=== PATIENT | female | born 1945 | race Caucasian/White ===

== ENCOUNTER 2016-08-26 05:47 | Emergency (ER) | payer MEDICARE ==
[2016-08-26 05:56] VITALS: TEMP 97.4
--- NOTE | 2016-08-26 06:06 | ED ---
General Adult HPI - General Chief complaint: Urogenital Stated complaint: Hematuria Time Seen by Provider: 08/26/16 06:01 Source: patient, RN notes reviewed Mode of arrival: wheelchair Limitations: no limitations - History of Present Illness Initial comments: Patient is a pleasant 71-year-old female presenting to the emergency department complaining of hematuria. Onset was yesterday. Symptoms have worsened since that time. No history of similar symptoms previously. No fevers. No abdominal or back pain. No nausea vomiting. Patient denies vaginal bleeding or rectal bleeding. - Related Data Home Medications Medication Instructions Recorded Confirmed Lisinopril-Hctz 20-12.5 mg 20 mg PO QAM 10/21/14 08/26/16 [Zestoretic 20-12.5] Lovastatin [Lovastatin] 20 mg PO HS 10/21/14 08/26/16 clonazePAM [Clonazepam] 0.5 mg PO DAILY 10/21/14 08/26/16 Ergocalciferol [Vitamin D2] 50,000 unit PO TU 08/09/15 08/26/16 Sevelamer [Renvela] 800 mg PO AC-BID 08/09/15 08/26/16 Canagliflozin [Invokana] 100 mg PO DAILY 06/22/16 08/26/16 Ferrous Sulfate [Iron (65 MG 325 mg PO DAILY 06/22/16 08/26/16 Elemental)] Folic Acid 1 mg PO DAILY 06/22/16 08/26/16 HYDROcodone/APAP 5-325MG [[place] 1 tab PO Q8H PRN 06/22/16 08/26/16 5-325] Lisinopril-Hctz 20-12.5 mg 0.5 tab PO HS 06/22/16 08/26/16 [Zestoretic 20-12.5] Canagliflozin [Invokana] 100 mg PO DAILY 08/26/16 08/26/16 Previous Rx's Medication Instructions Recorded predniSONE 20 mg PO BID #10 tab 06/22/16 Sulfamethox-Tmp 800-160Mg [Bactrim 1 each PO Q12HR #18 tab 08/26/16 DS 800-160 mg] Allergies Allergy/AdvReac Type Severity Reaction Status Date / Time glimepiride Allergy Mild Unknown Verified 06/22/16 17:29 ibuprofen Allergy Unknown Verified 06/22/16 17:29 metformin Allergy Unknown Verified 06/22/16 17:29 Review of Systems ROS Statement: Those systems with pertinent positive or pertinent negative responses have been documented in the HPI. ROS Other: All systems not noted in ROS Statement are negative. Constitutional: Denies: fever, chills Eyes: Denies: eye pain ENT: Denies: ear pain Respiratory: Denies: cough Cardiovascular: Denies: chest pain Endocrine: Denies: fatigue Gastrointestinal: Denies: abdominal pain, nausea, vomiting Genitourinary: Reports: hematuria. Denies: urgency, dysuria, frequency, discharge Musculoskeletal: Denies: back pain Skin: Denies: rash Neurological: Denies: weakness Past Medical History Past Medical History: Diabetes Mellitus, Hyperlipidemia, Hypertension Additional Past Medical History / Comment(s): kidney disease History of Any Multi-Drug Resistant Organisms: None Reported Past Surgical History: Cholecystectomy Additional Past Surgical History / Comment(s): Beatris Flaherty Past Psychological History: No Psychological Hx Reported Smoking Status: Former smoker Past Alcohol Use History: None Reported Past Drug Use History: None Reported General Exam Limitations: no limitations General appearance: alert, in no apparent distress Head exam: Present: atraumatic Eye exam: Present: normal appearance, PERRL ENT exam: Present: normal oropharynx Neck exam: Present: normal inspection Respiratory exam: Present: normal lung sounds bilaterally Cardiovascular Exam: Present: regular rate, normal rhythm GI/Abdominal exam: Present: soft. Absent: distended, tenderness, guarding Extremities exam: Present: normal inspection Back exam: Present: normal inspection. Absent: tenderness, CVA tenderness (R), CVA tenderness (L) Neurological exam: Present: alert Psychiatric exam: Present: normal affect, normal mood Skin exam: Absent: rash Course Vital Signs 08/26/16 05:51 Temperature 97.4 F L Pulse Rate 73 Respiratory 18 Rate Blood Pressure 143/91 O2 Sat by Pulse 94 L Oximetry Medical Decision Making - Medical Decision Making Patient resting comfortably in bed. Patient updated on results and need for follow-up, including with her diabetes control with primary care physician. - Lab Data Lab Results 08/26/16 Range/Units 06:09 Urine Color Red Urine Appearance Turbid H (Clear) Urine pH 5.0 (5.0-8.0) Ur Specific [place] 1.015 (1.001-1.035) Urine Protein 1+ H (Negative) Urine Glucose (UA) 4+ H (Negative) Urine Ketones Negative (Negative) Urine Blood Large H (Negative) Urine Nitrate Negative (Negative) Urine Bilirubin Negative (Negative) Urine Urobilinogen <2.0 (<2.0) mg/dL Ur Leukocyte Esterase Large H (Negative) Urine RBC >182 H (0-5) /hpf Urine WBC >182 H (0-5) /hpf Urine WBC Clumps Many H (None) /hpf Ur Squamous Epith Cells 16 H (0-4) /hpf Urine Bacteria Few H (None) /hpf Disposition Clinical Impression: Urinary tract infection Disposition: HOME SELF-CARE Condition: Stable Instructions: Urinary Tract Infection in Women (ED) Additional Instructions: Please follow-up with your doctor in the next couple of days for recheck. Please have your doctor check urine culture results done today. Please also have your doctor evaluate her diabetes control regarding glucose in the urine. Return for fevers, pain, vomiting, increased bleeding, worsening symptoms or other concerns. Prescriptions: Sulfamethox-Tmp 800-160Mg [Bactrim DS 800-160 mg] 1 each PO Q12HR #18 tab Referrals: Alec Flores MD [Primary Care Provider] - 1-2 days
[2016-08-26 06:29] LABS: Appearance,Urine Turbid (Clear); Bacteria,Urine Few /hpf; Bilirubin,Urine Negative (Negative); Glucose,Urine (UA) 4+ (Negative); Ketones,Urine Negative (Negative); Leukocyte Esterase,Urine Large (Negative); Nitrite,Urine Negative (Negative); Particle Count 14675; Protein,Urine 1+ (Negative); RBC,Urine >182 /hpf (0-5); Specific Gravity,Urine 1.015 (1.001-1.035); Squamous Epithelial Cell,Urine 16 /hpf (0-4); UA Billing (MACRO vs. MICRO) MICRO; Urobilinogen,Urine <2.0 mg/dL (<2.0); WBC,Urine >182 /hpf (0-5)
[2016-08-26] MEDS ORDERED: SULFAMETH-TMP DS STARTER PACK 2 TAB BTL PO STA (06:35)
[2016-08-26 06:52] VITALS: BP 158/88; PULSE 74; RESP 16
== END 2016-08-26 06:53 | disposition home or self-care (01) ==
LOC: EC 05:47
DX: N39.0 Urinary tract infection, site not specified (principal); B96.20 Unspecified Escherichia coli [E. coli] as the cause of diseases classified elsewhere; R31.9 Hematuria, unspecified; I10 Essential (primary) hypertension; E78.5 Hyperlipidemia, unspecified; E11.9 Type 2 diabetes mellitus without complications; N28.9 Disorder of kidney and ureter, unspecified; Z79.899 Other long term (current) drug therapy; Z88.8 Allergy status to other drugs, medicaments and biological substances; Z87.891 Personal history of nicotine dependence; Z79.84 Long term (current) use of oral hypoglycemic drugs
CPT/HCPCS: 81001; 87077; 87086; 87186; 99283

== ENCOUNTER 2016-09-02 20:18 | Inpatient (IN) | payer MEDICARE ==
[2016-09-02 20:33] LABS: Glucose,Whole Blood 192 mg/dL (75-99)
[2016-09-02] MEDS ORDERED: SODIUM CHLORIDE 0.9% 1,000 ML IV STA ×3 (20:33→22:30)
--- NOTE | 2016-09-02 20:49 | ED ---
General Adult HPI - General Source: EMS Mode of arrival: EMS Limitations: no limitations <Ceferino Coronado - Last Filed: 09/02/16 20:50> <Ceferino Campoverde - Last Filed: 09/03/16 00:10> - General Chief complaint: Weakness Stated complaint: fall,weakness Time Seen by Provider: 09/02/16 20:18 - History of Present Illness Initial comments: This is a 71-year-old female who presents emergency Department complaining of feeling weak all day. Patient states she was nauseous all day as well but she did not vomit. Patient states tonight she was getting weaker and weaker and she tried to go up the stairs when she fell to her side and she strained her neck. Patient states she has not had any chest pain palpitations or difficulty breathing. Patient denies any abdominal pain. Patient denies any recent diarrhea. Patient states she has had no headache no numbness or weakness. Patient denies hitting her head or having any syncopal episode. Patient states currently the only pain she is having in the back of her neck. Patient denies any recent fever or chills. Patient denies any recent cough. Patient states she normally has high blood pressure and she takes her medications as prescribed. (Ceferino Coronado) - Related Data Home Medications Medication Instructions Recorded Confirmed Lisinopril-Hctz 20-12.5 mg 1 tab PO QAM 10/21/14 09/02/16 [Zestoretic 20-12.5] Lovastatin [Lovastatin] 20 mg PO HS 10/21/14 09/02/16 clonazePAM [Clonazepam] 0.5 mg PO DAILY 10/21/14 09/02/16 Ergocalciferol [Vitamin D2] 50,000 unit PO TU 08/09/15 09/02/16 Sevelamer [Renvela] 800 mg PO AC-BID 08/09/15 09/02/16 Ferrous Sulfate [Iron (65 MG 325 mg PO DAILY 06/22/16 09/02/16 Elemental)] Folic Acid 1 mg PO DAILY 06/22/16 09/02/16 Lisinopril-Hctz 20-12.5 mg 0.5 tab PO HS 06/22/16 09/02/16 [Zestoretic 20-12.5] Canagliflozin [Invokana] 100 mg PO DAILY 08/26/16 09/02/16 HYDROcodone/APAP 7.5-325MG [[place] 1 tab PO Q8H PRN 09/02/16 09/02/16 7.5-325] Sulfamethox-Tmp 800-160Mg [Bactrim 1 tab PO Q12HR 09/02/16 09/02/16 DS 800-160 mg] Allergies Allergy/AdvReac Type Severity Reaction Status Date / Time glimepiride Allergy Mild Unknown Verified 09/02/16 20:28 ibuprofen Allergy Unknown Verified 09/02/16 20:28 metformin Allergy Unknown Verified 09/02/16 20:28 Review of Systems ROS Other: All systems not noted in ROS Statement are negative. <Ceferino Coronado - Last Filed: 09/02/16 20:50> ROS Other: All systems not noted in ROS Statement are negative. <Ceferino Campoverde - Last Filed: 09/03/16 00:10> ROS Statement: Those systems with pertinent positive or pertinent negative responses have been documented in the HPI. Past Medical History Past Medical History: Diabetes Mellitus, Hyperlipidemia, Hypertension Additional Past Medical History / Comment(s): kidney disease History of Any Multi-Drug Resistant Organisms: None Reported Past Surgical History: Cholecystectomy Additional Past Surgical History / Comment(s): D & C Past Psychological History: Anxiety, Depression Smoking Status: Former smoker Past Alcohol Use History: None Reported Past Drug Use History: None Reported <Ceferino Coronado - Last Filed: 09/02/16 20:50> General Exam Limitations: no limitations <Ceferino Coronado - Last Filed: 09/02/16 20:50> General appearance: alert, in no apparent distress, anxious Head exam: Present: atraumatic, normocephalic, normal inspection Eye exam: Present: normal appearance, PERRL, EOMI. Absent: scleral icterus, conjunctival injection, periorbital swelling ENT exam: Present: normal exam, mucous membranes moist Neck exam: Present: normal inspection. Absent: tenderness, meningismus, lymphadenopathy Respiratory exam: Present: normal lung sounds bilaterally. Absent: respiratory distress, wheezes, rales, rhonchi, stridor Cardiovascular Exam: Present: regular rate, normal rhythm, normal heart sounds. Absent: systolic murmur, diastolic murmur, rubs, gallop, clicks GI/Abdominal exam: Present: soft, normal bowel sounds. Absent: distended, tenderness, guarding, rebound, rigid Extremities exam: Present: normal inspection, full ROM, normal capillary refill. Absent: tenderness, pedal edema, joint swelling, calf tenderness Back exam: Present: normal inspection Neurological exam: Present: alert, oriented X3, CN II-XII intact Psychiatric exam: Present: normal affect, normal mood Skin exam: Present: warm, dry, intact, normal color. Absent: rash <Ceferino Campoverde - Last Filed: 09/03/16 00:10> - General Exam Comments Initial Comments: GENERAL: Patient is well-developed and well-nourished. Patient is nontoxic and well- hydrated and is in mild distress. ENT: Neck is soft and supple. No significant lymphadenopathy is noted. Oropharynx is clear. Moist mucous membranes. EYES: The sclera were anicteric and conjunctiva were pink and moist. Extraocular movements were intact and pupils were equal round and reactive to light. Eyelids were unremarkable. PULMONARY: Unlabored respirations. Good breath sounds bilaterally. No audible rales rhonchi or wheezing was noted. CARDIOVASCULAR: There is a regular rate and rhythm without any murmurs gallops or rubs. ABDOMEN: Soft and nontender with normal bowel sounds. No palpable organomegaly was noted. There is no palpable pulsatile mass. SKIN: Skin is clear with no lesions or rashes and otherwise unremarkable. NEUROLOGIC: Patient is alert and oriented x3. Cranial nerves II through XII are grossly intact. Motor and sensory are also intact. Normal speech, volume and content. Symmetrical smile. MUSCULOSKELETAL: Normal extremities with adequate strength and full range of motion. No lower extremity swelling or edema. No calf tenderness. LYMPHATICS: No significant lymphadenopathy is noted PSYCHIATRIC: Normal psychiatric evaluation. N (Ceferino Coronado) Course <Ceferino Coronado - Last Filed: 09/02/16 20:50> <Ceferino Campoverde - Last Filed: 09/03/16 00:10> Vital Signs 09/02/16 09/02/16 09/02/16 20:28 20:53 21:10 Temperature 99.1 F Pulse Rate 80 80 68 Respiratory 20 18 18 Rate Blood Pressure 85/46 83/48 92/50 O2 Sat by Pulse 88 L 95 97 Oximetry 09/02/16 09/02/16 09/02/16 21:55 22:10 23:00 Temperature Pulse Rate 98 68 70 Respiratory 18 18 18 Rate Blood Pressure 103/51 107/53 100/51 O2 Sat by Pulse 98 99 98 Oximetry - Reevaluation(s) Reevaluation #1: 09/03/16 00:10 Patient with mild improvement with pain control and fluid resuscitation, no acute distress, alert awake talking (Ceferino Campoverde) Medical Decision Making <Ceferino Coronado - Last Filed: 09/02/16 20:50> - Lab Data Result diagrams: 09/02/16 20:30 09/02/16 20:30 - Radiology Data Radiology results: report reviewed, image reviewed <Ceferino Campoverde - Last Filed: 09/03/16 00:10> - Medical Decision Making EKG shows a normal sinus rhythm at 77 bpm NV interval 162 QRS is 88 QT interval 344 QTC is 389. Patient's EKG shows no ST segment elevation or depression or T wave abnormalities are noted. Dr. Campoverde be taking over the care of this patient at 9 PM (Ceferino Coronado) 71 female year with weakness, severe dehydration, with generalized weakness, low risk for PE, unable to get CTA secondary to kidney function, patient's kidney function is worse than normal, patient will be admitted for IV hydration monitoring of blood pressure and cardiac coronary status. (Ceferino Campoverde) - Lab Data Lab Results 09/02/16 09/02/16 09/02/16 Range/Units 20:30 20:30 20:30 WBC 8.9 (3.8-10.6) k/uL RBC 3.12 L (3.80-5.40) m/uL Hgb 10.8 L (11.4-16.0) gm/dL Hct 32.1 L (34.0-46.0) % MCV 102.9 H (80.0-100.0) fL MCH 34.7 (25.0-35.0) pg MCHC 33.7 (31.0-37.0) g/dL RDW 14.0 (11.5-15.5) % Plt Count 214 (150-450) k/uL Neutrophils % 92 % Lymphocytes % 3 % Monocytes % 3 % Eosinophils % 1 % Basophils % 0 % Neutrophils # 8.1 H (1.3-7.7) k/uL Lymphocytes # 0.3 L (1.0-4.8) k/uL Monocytes # 0.3 (0-1.0) k/uL Eosinophils # 0.1 (0-0.7) k/uL Basophils # 0.0 (0-0.2) k/uL Macrocytosis Slight PT (9.0-12.0) sec INR (<1.1) APTT (22.0-30.0) sec D-Dimer (<0.60) mg/L FEU Sodium 135 L (137-145) mmol/L Potassium 5.3 H (3.5-5.1) mmol/L Chloride 101 (98-107) mmol/L Carbon Dioxide 18 L (22-30) mmol/L Anion Gap 16 mmol/L BUN 29 H (7-17) mg/dL Creatinine 2.50 H (0.52-1.04) mg/dL Est GFR (MDRD) Af Amer 23 (>60 ml/min/1.73 sqM) Est GFR (MDRD) Non-Af 19 (>60 ml/min/1.73 sqM) Glucose 175 H (74-99) mg/dL POC Glucose (mg/dL) (75-99) mg/dL POC Glu Maintenance Carpenter ID Plasma Lactic Acid Alex (0.7-2.0) mmol/L Calcium 8.6 (8.4-10.2) mg/dL Magnesium 1.9 (1.6-2.3) mg/dL Total Bilirubin 0.6 (0.2-1.3) mg/dL AST 20 (14-36) U/L ALT 28 (9-52) U/L Alkaline Phosphatase 70 (38-126) U/L Total Creatine Kinase 49 (30-135) U/L CK-MB (CK-2) 0.4 (0.0-2.4) ng/mL CK-MB (CK-2) Rel Index 0.8 Troponin I <0.012 (0.000-0.034) ng/mL NT-Pro-B Natriuret Pep pg/mL Total Protein 6.4 (6.3-8.2) g/dL Albumin 3.6 (3.5-5.0) g/dL Urine Color Urine Appearance (Clear) Urine pH (5.0-8.0) Ur Specific [place] (1.001-1.035) Urine Protein (Negative) Urine Glucose (UA) (Negative) Urine Ketones (Negative) Urine Blood (Negative) Urine Nitrate (Negative) Urine Bilirubin (Negative) Urine Urobilinogen (<2.0) mg/dL Ur Leukocyte Esterase (Negative) Urine RBC (0-5) /hpf Urine WBC (0-5) /hpf Urine Bacteria (None) /hpf Urine Mucus (None) /hpf Salicylates mg/dL Acetaminophen ug/mL Acetone, Qual (Negative) Influenza Type A RNA (Not Detectd) Influenza Type B (PCR) (Not Detectd) 09/02/16 09/02/16 09/02/16 Range/Units 20:30 20:30 20:30 WBC (3.8-10.6) k/uL RBC (3.80-5.40) m/uL Hgb (11.4-16.0) gm/dL Hct (34.0-46.0) % MCV (80.0-100.0) fL MCH (25.0-35.0) pg MCHC (31.0-37.0) g/dL RDW (11.5-15.5) % Plt Count (150-450) k/uL Neutrophils % % Lymphocytes % % Monocytes % % Eosinophils % % Basophils % % Neutrophils # (1.3-7.7) k/uL Lymphocytes # (1.0-4.8) k/uL Monocytes # (0-1.0) k/uL Eosinophils # (0-0.7) k/uL Basophils # (0-0.2) k/uL Macrocytosis PT 11.0 (9.0-12.0) sec INR 1.1 (<1.1) APTT 23.3 (22.0-30.0) sec D-Dimer (<0.60) mg/L FEU Sodium (137-145) mmol/L Potassium (3.5-5.1) mmol/L Chloride (98-107) mmol/L Carbon Dioxide (22-30) mmol/L Anion Gap mmol/L BUN (7-17) mg/dL Creatinine (0.52-1.04) mg/dL Est GFR (MDRD) Af Amer (>60 ml/min/1.73 sqM) Est GFR (MDRD) Non-Af (>60 ml/min/1.73 sqM) Glucose (74-99) mg/dL POC Glucose (mg/dL) (75-99) mg/dL POC Glu Maintenance Carpenter ID Plasma Lactic Acid Alex 3.3 H* (0.7-2.0) mmol/L Calcium (8.4-10.2) mg/dL Magnesium (1.6-2.3) mg/dL Total Bilirubin (0.2-1.3) mg/dL AST (14-36) U/L ALT (9-52) U/L Alkaline Phosphatase (38-126) U/L Total Creatine Kinase (30-135) U/L CK-MB (CK-2) (0.0-2.4) ng/mL CK-MB (CK-2) Rel Index Troponin I (0.000-0.034) ng/mL NT-Pro-B Natriuret Pep pg/mL Total Protein (6.3-8.2) g/dL Albumin (3.5-5.0) g/dL Urine Color Yellow Urine Appearance Clear (Clear) Urine pH 5.5 (5.0-8.0) Ur Specific [place] 1.011 (1.001-1.035) Urine Protein Trace H (Negative) Urine Glucose (UA) 4+ H (Negative) Urine Ketones Negative (Negative) Urine Blood Small H (Negative) Urine Nitrate Negative (Negative) Urine Bilirubin Negative (Negative) Urine Urobilinogen <2.0 (<2.0) mg/dL Ur Leukocyte Esterase Negative (Negative) Urine RBC 7 H (0-5) /hpf Urine WBC 3 (0-5) /hpf Urine Bacteria Rare H (None) /hpf Urine Mucus Rare H (None) /hpf Salicylates mg/dL Acetaminophen ug/mL Acetone, Qual (Negative) Influenza Type A RNA (Not Detectd) Influenza Type B (PCR) (Not Detectd) 09/02/16 09/02/16 09/02/16 Range/Units 20:30 20:30 20:30 WBC (3.8-10.6) k/uL RBC (3.80-5.40) m/uL Hgb (11.4-16.0) gm/dL Hct (34.0-46.0) % MCV (80.0-100.0) fL MCH (25.0-35.0) pg MCHC (31.0-37.0) g/dL RDW (11.5-15.5) % Plt Count (150-450) k/uL Neutrophils % % Lymphocytes % % Monocytes % % Eosinophils % % Basophils % % Neutrophils # (1.3-7.7) k/uL Lymphocytes # (1.0-4.8) k/uL Monocytes # (0-1.0) k/uL Eosinophils # (0-0.7) k/uL Basophils # (0-0.2) k/uL Macrocytosis PT (9.0-12.0) sec INR (<1.1) APTT (22.0-30.0) sec D-Dimer 1.41 H (<0.60) mg/L FEU Sodium (137-145) mmol/L Potassium (3.5-5.1) mmol/L Chloride (98-107) mmol/L Carbon Dioxide (22-30) mmol/L Anion Gap mmol/L BUN (7-17) mg/dL Creatinine (0.52-1.04) mg/dL Est GFR (MDRD) Af Amer (>60 ml/min/1.73 sqM) Est GFR (MDRD) Non-Af (>60 ml/min/1.73 sqM) Glucose (74-99) mg/dL POC Glucose (mg/dL) (75-99) mg/dL POC Glu Maintenance Carpenter ID Plasma Lactic Acid Alex (0.7-2.0) mmol/L Calcium (8.4-10.2) mg/dL Magnesium (1.6-2.3) mg/dL Total Bilirubin (0.2-1.3) mg/dL AST (14-36) U/L ALT (9-52) U/L Alkaline Phosphatase (38-126) U/L Total Creatine Kinase (30-135) U/L CK-MB (CK-2) (0.0-2.4) ng/mL CK-MB (CK-2) Rel Index Troponin I (0.000-0.034) ng/mL NT-Pro-B Natriuret Pep 463 pg/mL Total Protein (6.3-8.2) g/dL Albumin (3.5-5.0) g/dL Urine Color Urine Appearance (Clear) Urine pH (5.0-8.0) Ur Specific [place] (1.001-1.035) Urine Protein (Negative) Urine Glucose (UA) (Negative) Urine Ketones (Negative) Urine Blood (Negative) Urine Nitrate (Negative) Urine Bilirubin (Negative) Urine Urobilinogen (<2.0) mg/dL Ur Leukocyte Esterase (Negative) Urine RBC (0-5) /hpf Urine WBC (0-5) /hpf Urine Bacteria (None) /hpf Urine Mucus (None) /hpf Salicylates <1.0 mg/dL Acetaminophen <10.0 ug/mL Acetone, Qual Negative (Negative) Influenza Type A RNA (Not Detectd) Influenza Type B (PCR) (Not Detectd) 09/02/16 09/02/16 Range/Units 20:31 23:05 WBC (3.8-10.6) k/uL RBC (3.80-5.40) m/uL Hgb (11.4-16.0) gm/dL Hct (34.0-46.0) % MCV (80.0-100.0) fL MCH (25.0-35.0) pg MCHC (31.0-37.0) g/dL RDW (11.5-15.5) % Plt Count (150-450) k/uL Neutrophils % % Lymphocytes % % Monocytes % % Eosinophils % % Basophils % % Neutrophils # (1.3-7.7) k/uL Lymphocytes # (1.0-4.8) k/uL Monocytes # (0-1.0) k/uL Eosinophils # (0-0.7) k/uL Basophils # (0-0.2) k/uL Macrocytosis PT (9.0-12.0) sec INR (<1.1) APTT (22.0-30.0) sec D-Dimer (<0.60) mg/L FEU Sodium (137-145) mmol/L Potassium (3.5-5.1) mmol/L Chloride (98-107) mmol/L Carbon Dioxide (22-30) mmol/L Anion Gap mmol/L BUN (7-17) mg/dL Creatinine (0.52-1.04) mg/dL Est GFR (MDRD) Af Amer (>60 ml/min/1.73 sqM) Est GFR (MDRD) Non-Af (>60 ml/min/1.73 sqM) Glucose (74-99) mg/dL POC Glucose (mg/dL) 192 H (75-99) mg/dL POC Glu Maintenance Carpenter ID Sara Reaves Plasma Lactic Acid Alex (0.7-2.0) mmol/L Calcium (8.4-10.2) mg/dL Magnesium (1.6-2.3) mg/dL Total Bilirubin (0.2-1.3) mg/dL AST (14-36) U/L ALT (9-52) U/L Alkaline Phosphatase (38-126) U/L Total Creatine Kinase (30-135) U/L CK-MB (CK-2) (0.0-2.4) ng/mL CK-MB (CK-2) Rel Index Troponin I (0.000-0.034) ng/mL NT-Pro-B Natriuret Pep pg/mL Total Protein (6.3-8.2) g/dL Albumin (3.5-5.0) g/dL Urine Color Urine Appearance (Clear) Urine pH (5.0-8.0) Ur Specific [place] (1.001-1.035) Urine Protein (Negative) Urine Glucose (UA) (Negative) Urine Ketones (Negative) Urine Blood (Negative) Urine Nitrate (Negative) Urine Bilirubin (Negative) Urine Urobilinogen (<2.0) mg/dL Ur Leukocyte Esterase (Negative) Urine RBC (0-5) /hpf Urine WBC (0-5) /hpf Urine Bacteria (None) /hpf Urine Mucus (None) /hpf Salicylates mg/dL Acetaminophen ug/mL Acetone, Qual (Negative) Influenza Type A RNA Not Detected (Not Detectd) Influenza Type B (PCR) Not Detected (Not Detectd) Critical Care Time Critical Care Time: Yes Total Critical Care Time: 31 <Ceferino Campoverde - Last Filed: 09/03/16 00:10> Disposition <Ceferino Coronado - Last Filed: 09/02/16 20:50> <Ceferino Campoverde - Last Filed: 09/03/16 00:10> Clinical Impression: Weakness, Dehydration, Acute renal failure Disposition: ADMITTED IP TO THIS [facility] Condition: Serious Referrals: Alec Flores MD [Primary Care Provider] - 1-2 days
[2016-09-02 21:06] LABS: Basophils % (A) 0 %; CH 33.9; CHCM 33.1; Eosinophils # (A) 0.1 k/uL (0-0.7); Eosinophils % (A) 1 %; HCT 32.1 % (34.0-46.0); HDW 2.52; HGB 10.8 gm/dL (11.4-16.0); Luc % (Auto) 1; Lymphocytes # (A) 0.3 k/uL (1.0-4.8); Lymphocytes % (A) 3 %; MCH 34.7 pg (25.0-35.0); MCHC 33.7 g/dL (31.0-37.0); MCV 102.9 fL (80.0-100.0); Macrocytosis Slight; Mean Platelet Volume 6.9; Monocytes # (A) 0.3 k/uL (0-1.0); Monocytes % (A) 3 %; Neutrophils # (A) 8.1 k/uL (1.3-7.7); Neutrophils % (A) 92 %; RBC 3.12 m/uL (3.80-5.40); WBC 8.9 k/uL (3.8-10.6); WBC (Perox) 9.51
[2016-09-02 21:12] LABS: Appearance,Urine Clear (Clear); Bacteria,Urine Rare /hpf; Bilirubin,Urine Negative (Negative); Glucose,Urine (UA) 4+ (Negative); Ketones,Urine Negative (Negative); Leukocyte Esterase,Urine Negative (Negative); Mucus,Urine Rare /hpf; Nitrite,Urine Negative (Negative); PH, Urine 5.5 (5.0-8.0); Particle Count 7781; Protein,Urine Trace (Negative); RBC,Urine 7 /hpf (0-5); Specific Gravity,Urine 1.011 (1.001-1.035); UA Billing (MACRO vs. MICRO) MICRO; Urobilinogen,Urine <2.0 mg/dL (<2.0); WBC,Urine 3 /hpf (0-5)
[2016-09-02 21:17] LABS: Calcium 8.6 mg/dL (8.4-10.2); Magnesium 1.9 mg/dL (1.6-2.3); Potassium 5.3 mmol/L (3.5-5.1); Total Bilirubin 0.6 mg/dL (0.2-1.3); Total Protein 6.4 g/dL (6.3-8.2)
[2016-09-02 21:19] LABS: INR 1.1 (<1.1); Partial Thromboplastin Time 23.3 sec (22.0-30.0)
[2016-09-02 21:24] LABS: Creatine Kinase 49 U/L (30-135)
[2016-09-02 21:37] LABS: Creatine Kinase MB 0.4 ng/mL (0.0-2.4); Troponin I <0.012 ng/mL (0.000-0.034)
--- NOTE | 2016-09-02 21:38 | CT ---
EXAMINATION TYPE: CT cervical spine wo con DATE OF EXAM: 09/02/2016 9:30 PM COMPARISON: NONE HISTORY: Fall and weakness. CT DLP: 1063.00 mGycm Automated exposure control for dose reduction was used. TECHNIQUE: CT scan of the cervical spine is obtained without contrast, axial images are obtained, sa gittal and coronal reformatted images are also reviewed. FINDINGS: Visualized portions of the lungs are clear. There is some shotty cervical adenopathy. Prevertebral soft tissues are otherwise unremarkable. Vertebral body height and alignment are maintained. Atlantoaxial relationships are normal. There is mild degenerative disc disease and hypertrophic spondylosis at C4-5, C5-6 and C6-7. There is uncovertebral joint disease at these levels as well. There is some mild facet arthropathy on the rig ht at C3-4. No fracture is seen. There is a left paracentral spur present at C5-6. There is also significant posterior spurring at C4- 5. And to lesser extent at C5-6. No definite discal protrusion is seen. IMPRESSION: 1. No acute osseous lesion. 2. Moderate degenerative change.
[2016-09-02] MEDS ORDERED: ACETAMINOPHEN IV (For NPO) 1,000 MG in EMPTY BAG 1 BAG IVPB ONE (21:56)
[2016-09-02] MEDS ORDERED: SODIUM CHLORIDE 0.9% 500 ML IV STA (22:30)
--- NOTE | 2016-09-02 22:56 | XR ---
EXAMINATION TYPE: XR chest 2V DATE OF EXAM: 09/02/2016 10:48 PM COMPARISON: 06/22/2016 HISTORY: Weakness TECHNIQUE: Frontal and lateral views of the chest are obtained. FINDINGS: There is no heart failure nor confluent pneumonic infiltrate. There are no hilar masses. H eart size is normal. There are chest leads. There is no sign of pleural effusion. IMPRESSION: No active cardiopulmonary disease. No change.
--- NOTE | 2016-09-02 22:57 | XR ---
EXAMINATION TYPE: XR Hip RT and AP Pelvis DATE OF EXAM: 09/02/2016 10:48 PM COMPARISON: NONE HISTORY: Fall and hip pain TECHNIQUE: A single AP view of the pelvis is obtained. Two views of the right hip are obtained. FINDINGS: The pelvic ring is intact. Proximal right femur and hip joint are intact. There is no sign of a fracture. Sacroiliac joints are normal. There are numerous phleboliths in the pelvis.. IMPRESSION: Negative pelvis and right hip exam. No fracture.
[2016-09-02 23:15] LABS: Acetaminophen <10.0 ug/mL; Salicylate <1.0 mg/dL
[2016-09-03] MEDS ORDERED: ASPIRIN 81 MG CHEW PO STA (00:11)
[2016-09-03] MEDS ORDERED: IPRATROPIUM-ALBUTEROL 3 ML NEB INHALATION STA (00:13)
[2016-09-03] MEDS ORDERED: AMPICILLIN-SULBACTAM 3 GM in SODIUM CHLORIDE 0.9% 100 ML IVPB STA (00:13)
--- NOTE | 2016-09-03 00:19 | NM ---
EXAMINATION TYPE: NM pul vent and perfuse DATE OF EXAM: 09/03/2016 12:06 AM COMPARISON: NONE HISTORY: TECHNIQUE: Utilizing inhalation of 71.3 mCi Tc 99m DTPA aerosol and intravenous injection of 5.14 mC i of Tc 99m MAA, ventilation and perfusion images are acquired post injection in multiple projections . FINDINGS: Ventilation images are within normal limits. The perfusion images are within normal limits. There is no evidence of segmental or subsegmental defect. IMPRESSION: Normal exam. There is a very low probability of pulmonary embolism.
[2016-09-03] MEDS: SODIUM CHLORIDE 0.9% 1,000 ML IV SCH ×3 (00:25→21:43)
[2016-09-03 01:12] LABS: Creatine Kinase 84 U/L (30-135)
[2016-09-03 01:26] LABS: Creatine Kinase MB 0.6 ng/mL (0.0-2.4); Troponin I <0.012 ng/mL (0.000-0.034)
[2016-09-03] MEDS ORDERED: ACETAMINOPHEN TAB 325 MG TAB PO PRN (01:29)
[2016-09-03] MEDS ORDERED: DIAZEPAM 5 MG/ML 2 ML SYRINGE IVP STA (01:40)
[2016-09-03 02:17] LABS: Glucose,Whole Blood 136 mg/dL (75-99)
--- NOTE | 2016-09-03 02:33 | US ---
EXAMINATION TYPE: US venous doppler duplex LE BI DATE OF EXAM: 09/03/2016 2:05 AM COMPARISON: NONE CLINICAL HISTORY: Pain. SIDE PERFORMED: Bilateral VESSELS IMAGED: External Iliac Vein (EIV) Common Femoral Vein Deep Femoral Vein Greater Saphenous Vein * Femoral Vein Popliteal Vein Small Saphenous Vein * Proximal Calf Veins (* superficial vessels) TECHNOLOGIST IMPRESSION: Right Leg: Negative for DVT Left Leg: Negative for DVT IMPRESSION: Normal exam. Normal bilateral leg duplex venous sonogram.
[2016-09-03 02:41] VITALS: BMI 38.0
[2016-09-03 04:53] LABS: Basophils % (A) 0 %; CH 33.6; CHCM 31.9; Eosinophils # (A) 0.1 k/uL (0-0.7); Eosinophils % (A) 1 %; HCT 29.1 % (34.0-46.0); HDW 2.55; Luc # (Auto) 0.05; Luc % (Auto) 1; Lymphocytes # (A) 0.7 k/uL (1.0-4.8); Lymphocytes % (A) 11 %; MCH 33.4 pg (25.0-35.0); MCHC 31.4 g/dL (31.0-37.0); MCV 106.2 fL (80.0-100.0); Macrocytosis Moderate; Mean Platelet Volume 7.4; Monocytes # (A) 0.2 k/uL (0-1.0); Monocytes % (A) 3 %; Neutrophils # (A) 5.3 k/uL (1.3-7.7); Neutrophils % (A) 84 %; RBC 2.74 m/uL (3.80-5.40); RDW 14.2 % (11.5-15.5); WBC 6.4 k/uL (3.8-10.6); WBC (Perox) 6.61
[2016-09-03 05:01] LABS: HGB 9.1 gm/dL (11.4-16.0)
[2016-09-03 05:11] LABS: Calcium 7.7 mg/dL (8.4-10.2); Magnesium 2.1 mg/dL (1.6-2.3); Phosphorous 3.9 mg/dL (2.5-4.5); Potassium 4.4 mmol/L (3.5-5.1)
[2016-09-03] MEDS: IPRATROPIUM-ALBUTEROL 3 ML NEB INHALATION SCH ×4 (07:20→19:09)
[2016-09-03 08:01] LABS: Glucose,Whole Blood 120 mg/dL (75-99)
[2016-09-03 09:06] LABS: Creatine Kinase 146 U/L (30-135)
[2016-09-03 09:18] LABS: Creatine Kinase MB 1.1 ng/mL (0.0-2.4); Troponin I <0.012 ng/mL (0.000-0.034)
--- NOTE | 2016-09-03 10:40 | P.NPCON ---
History of Present Illness - Reason for Consult acute renal failure - History of Present Illness Reason for consultation: Acute kidney injury on chronic kidney disease History of present illness: Patient is a 71-year-old female seen in renal consultation for acute kidney injury on chronic kidney disease. Patient has chronic kidney disease stage III with baseline creatinine in the range of 1.2-1.4 secondary to diabetic kidney disease as well as chronic NSAID use. Patient presented to hospital with weakness. She sustained a fall and was unable to get up. Her blood pressure was also noted to be in the systolic 80s at the time of admission. She's currently receiving IV fluids. Her creatinine was 2.5 and admission and is improved to 2.2 today. Additionally she mentions she was recently diagnosed with a urinary tract infection and is completing course of Bactrim. Admits to good urine output. She did notice some blood in the urine when initially diagnosed with UTI but now resolved. Appetite is better now but states it was poor for the last 2 days or so. No vomiting or diarrhea. Denies chest pain or shortness of breath. Vital signs are stable. General: The patient appeared well nourished and normally developed. HEENT: Head exam is unremarkable. Neck is without jugular venous distension. LUNGS: Lungs are clear to auscultation and percussion. Breath sounds decreased. HEART: Rate and Rhythm are regular. First and second heart sounds normal. No murmurs, rubs or gallops. ABDOMEN: Abdominal exam reveals normal bowel sounds. Non-tender and non- distended. No evidence of peritonitis. EXTREMITITES: No clubbing, cyanosis, or edema. Past Medical History Past Medical History: Diabetes Mellitus, Hyperlipidemia, Hypertension Additional Past Medical History / Comment(s): kidney disease History of Any Multi-Drug Resistant Organisms: None Reported Past Surgical History: Cholecystectomy Additional Past Surgical History / Comment(s): D & C Past Anesthesia/Blood Transfusion Reactions: No Reported Reaction Past Psychological History: Anxiety, Depression Smoking Status: Former smoker Past Alcohol Use History: None Reported Past Drug Use History: None Reported - Past Family History Father Family Medical History: Cancer Medications and Allergies Home Medications Medication Instructions Recorded Confirmed Type Lisinopril-Hctz 20-12.5 mg 1 tab PO QAM 10/21/14 09/02/16 History [Zestoretic 20-12.5] Lovastatin [Lovastatin] 20 mg PO HS 10/21/14 09/02/16 History clonazePAM [Clonazepam] 0.5 mg PO DAILY 10/21/14 09/02/16 History Ergocalciferol [Vitamin D2] 50,000 unit PO TU 08/09/15 09/02/16 History Sevelamer [Renvela] 800 mg PO AC-BID 08/09/15 09/02/16 History Ferrous Sulfate [Iron (65 MG 325 mg PO DAILY 06/22/16 09/02/16 History Elemental)] Folic Acid 1 mg PO DAILY 06/22/16 09/02/16 History Lisinopril-Hctz 20-12.5 mg 0.5 tab PO HS 06/22/16 09/02/16 History [Zestoretic 20-12.5] Canagliflozin [Invokana] 100 mg PO DAILY 08/26/16 09/02/16 History HYDROcodone/APAP 7.5-325MG [[place] 1 tab PO Q8H PRN 09/02/16 09/02/16 History 7.5-325] Sulfamethox-Tmp 800-160Mg [Bactrim 1 tab PO Q12HR 09/02/16 09/02/16 History DS 800-160 mg] Allergies Allergy/AdvReac Type Severity Reaction Status Date / Time glimepiride Allergy Mild Unknown Verified 09/02/16 20:28 ibuprofen Allergy Unknown Verified 09/02/16 20:28 metformin Allergy Unknown Verified 09/02/16 20:28 Physical Exam Vitals: Vital Signs Temp Pulse Pulse Resp BP BP BP 09/03/16 08:00 99.1 F 75 20 98/60 09/03/16 07:36 66 09/03/16 07:22 66 09/03/16 04:00 97.3 F L 73 14 100/55 09/03/16 03:19 20 09/03/16 01:40 68 20 109/56 09/03/16 01:01 97.5 F L 100 14 108/57 09/03/16 00:40 96 09/03/16 00:36 98.0 F 92 18 121/54 09/03/16 00:35 108 H Pulse Ox 09/03/16 08:00 09/03/16 07:36 09/03/16 07:22 95 09/03/16 04:00 99 09/03/16 03:19 09/03/16 01:40 97 09/03/16 01:01 99 09/03/16 00:40 09/03/16 00:36 98 09/03/16 00:35 Intake and Output 09/02/16 09/03/16 09/03/16 22:59 06:59 14:59 Intake Total 100 100 Output Total 300 200 Balance -200 -100 Intake: IV 100 100 Sodium Chloride 0.9% 1, 100 100 000 ml @ 100 mls/hr IV . Q10H [facility] Rx#:[id number] Output: Urine 300 200 Other: Voiding Method Bedpan Weight 116.8 kg Results - Lab Results Most recent lab results Calcium 7.7 mg/dL (8.4-10.2) L 09/03/16 04:41 Phosphorus 3.9 mg/dL (2.5-4.5) 09/03/16 04:41 Magnesium 2.1 mg/dL (1.6-2.3) 09/03/16 04:41 09/03/16 04:41 09/03/16 04:41 Assessment and Plan Plan: Assessment: #1. Nonoliguric acute kidney injury mostly prerenal in nature secondary to diuretics and hypotension. Bactrim also a contributing factor. Improving. Creatinine down to 2.2 today. #2. Chronic kidney disease stage III secondary to diabetic kidney disease and chronic use of NSAIDs. Baseline creatinine in the range of 1.2-1.4. #3. Recent UTI. Patient was taking Bactrim. #4. Anemia. Rule out iron deficiency. #5. Metabolic acidosis secondary to acute kidney injury and IV fluids. #6. Diabetes mellitus. Plan: Continue normal saline to be run at 100 mL an hour. Avoid nephrotoxic agents and hypotensive episodes. Check iron studies. Check urine culture. Encourage oral intake. Repeat electrolytes in the morning. Thank you for the consultation. I will continue to follow the patient with you during her hospital stay.
[2016-09-03 12:11] LABS: Glucose,Whole Blood 198 mg/dL (75-99)
[2016-09-03] MEDS ORDERED: HYDROcodone/APAP 7.5-325MG 1 EACH TAB PO PRN (12:53)
[2016-09-03] MEDS: HYDROcodone/APAP 7.5-325MG 1 EACH TAB PO PRN (14:10)
[2016-09-03 15:47] LABS: Hemoglobin A1C 7.8 % (4.2-6.1)
[2016-09-03 18:26] LABS: Glucose,Whole Blood 132 mg/dL (75-99)
[2016-09-03] MEDS: SEVELAMER 800 MG TAB PO SCH (18:41)
[2016-09-03] MEDS: INSULIN LISPRO (humaLOG) 300 UNIT/3 ML VIAL SQ SCH ×2 (18:42→21:43)
--- NOTE | 2016-09-03 19:31 | P.HPIM ---
History of Present Illness H&P Date: 09/03/16 Chief Complaint: weakness. 71 yr old female with history of CKD is admitted the hospital after sustaining a fall. Pt apparently has been having some burning with micturation in the recent times. Pt was started on bactrim for the last 4 days.. Pt denies decreased oral intake, or increase urine output or diarrhea in the recent times. Pt fell due a mechanical obstruction, pt was able to get help immediately. Denies having any additional complaints. Pt appears to be anxious. NO chest pain, TRU< nause, vomiting, abdominal pain. Pt apparently has a history of urge incontinence. In the er, pt was noted to have an elevated CR around 2.5, baseline around 1.2mg /dl. Review of Systems All systems: negative (noted in hpi) Past Medical History Past Medical History: Diabetes Mellitus, Hyperlipidemia, Hypertension Additional Past Medical History / Comment(s): kidney disease History of Any Multi-Drug Resistant Organisms: None Reported Past Surgical History: Cholecystectomy Additional Past Surgical History / Comment(s): D & C Past Anesthesia/Blood Transfusion Reactions: No Reported Reaction Past Psychological History: Anxiety, Depression Smoking Status: Former smoker Past Alcohol Use History: None Reported Past Drug Use History: None Reported - Past Family History Father Family Medical History: Cancer Medications and Allergies Home Medications Medication Instructions Recorded Confirmed Type Lisinopril-Hctz 20-12.5 mg 1 tab PO QAM 10/21/14 09/02/16 History [Zestoretic 20-12.5] Lovastatin [Lovastatin] 20 mg PO HS 10/21/14 09/02/16 History clonazePAM [Clonazepam] 0.5 mg PO DAILY 10/21/14 09/02/16 History Ergocalciferol [Vitamin D2] 50,000 unit PO TU 08/09/15 09/02/16 History Sevelamer [Renvela] 800 mg PO AC-BID 08/09/15 09/02/16 History Ferrous Sulfate [Iron (65 MG 325 mg PO DAILY 06/22/16 09/02/16 History Elemental)] Folic Acid 1 mg PO DAILY 06/22/16 09/02/16 History Lisinopril-Hctz 20-12.5 mg 0.5 tab PO HS 06/22/16 09/02/16 History [Zestoretic 20-12.5] Canagliflozin [Invokana] 100 mg PO DAILY 08/26/16 09/02/16 History HYDROcodone/APAP 7.5-325MG [[place] 1 tab PO Q8H PRN 09/02/16 09/02/16 History 7.5-325] Sulfamethox-Tmp 800-160Mg [Bactrim 1 tab PO Q12HR 09/02/16 09/02/16 History DS 800-160 mg] Allergies Allergy/AdvReac Type Severity Reaction Status Date / Time glimepiride Allergy Mild Unknown Verified 09/02/16 20:28 ibuprofen Allergy Unknown Verified 09/02/16 20:28 metformin Allergy Unknown Verified 09/02/16 20:28 Physical Exam Vitals: Vital Signs Temp Pulse Pulse Resp BP BP BP 09/03/16 16:00 98.7 F 69 18 113/63 09/03/16 12:00 100.4 F H 74 18 126/66 09/03/16 11:10 85/54 09/03/16 08:00 99.1 F 75 20 98/60 09/03/16 07:36 66 09/03/16 07:22 66 09/03/16 04:00 97.3 F L 73 14 100/55 09/03/16 03:19 20 09/03/16 01:40 68 20 109/56 09/03/16 01:01 97.5 F L 100 14 108/57 09/03/16 00:40 96 09/03/16 00:36 98.0 F 92 18 121/54 09/03/16 00:35 108 H Pulse Ox 09/03/16 16:00 97 09/03/16 12:00 97 09/03/16 11:10 09/03/16 08:00 09/03/16 07:36 09/03/16 07:22 95 09/03/16 04:00 99 09/03/16 03:19 09/03/16 01:40 97 09/03/16 01:01 99 09/03/16 00:40 09/03/16 00:36 98 09/03/16 00:35 Intake and Output 09/03/16 09/03/16 09/03/16 06:59 14:59 22:59 Intake Total 100 800 Output Total 300 200 Balance -200 600 Intake: IV 100 800 Sodium Chloride 0.9% 1, 100 800 000 ml @ 100 mls/hr IV . Q10H [facility] Rx#:[id number] Output: Urine 300 200 Other: Voiding Method Bedpan Bedpan Bedside Commode # Voids 1 Weight 116.8 kg Gen appearance in no distress answers questions appropriately Lungs currently clear to auscultation, no crackles appreciated. Heart regular rate and rhythm. S1-S2 heard no murmurs appreciated Abdomen is soft nontender organomegaly no suprapubic tenderness noted Neurologically moves all 4 extremities, NO cranial nerve abnormalities appreciated overtly. Lower extremity is no edema appreciated Results CBC & Chem 7: 09/03/16 04:41 09/03/16 04:41 Labs: Abnormal Lab Results - Last 24 Hours (Table) 09/03/16 09/03/16 09/03/16 Range/Units 02:15 04:41 04:41 RBC 2.74 L (3.80-5.40) m/uL Hgb 9.1 L D (11.4-16.0) gm/dL Hct 29.1 L (34.0-46.0) % MCV 106.2 H (80.0-100.0) fL Lymphocytes # 0.7 L (1.0-4.8) k/uL Carbon Dioxide (22-30) mmol/L BUN (7-17) mg/dL Creatinine (0.52-1.04) mg/dL Glucose (74-99) mg/dL POC Glucose (mg/dL) 136 H (75-99) mg/dL Plasma Lactic Acid Alex 2.3 H* (0.7-2.0) mmol/L Calcium (8.4-10.2) mg/dL % Saturation (20-50) % Total Creatine Kinase (30-135) U/L 09/03/16 09/03/16 09/03/16 Range/Units 04:41 04:41 08:00 RBC (3.80-5.40) m/uL Hgb (11.4-16.0) gm/dL Hct (34.0-46.0) % MCV (80.0-100.0) fL Lymphocytes # (1.0-4.8) k/uL Carbon Dioxide 18 L (22-30) mmol/L BUN 29 H (7-17) mg/dL Creatinine 2.20 H (0.52-1.04) mg/dL Glucose 138 H (74-99) mg/dL POC Glucose (mg/dL) 120 H (75-99) mg/dL Plasma Lactic Acid Alex (0.7-2.0) mmol/L Calcium 7.7 L (8.4-10.2) mg/dL % Saturation 16.0 L (20-50) % Total Creatine Kinase (30-135) U/L 09/03/16 09/03/16 09/03/16 Range/Units 08:13 12:09 18:25 RBC (3.80-5.40) m/uL Hgb (11.4-16.0) gm/dL Hct (34.0-46.0) % MCV (80.0-100.0) fL Lymphocytes # (1.0-4.8) k/uL Carbon Dioxide (22-30) mmol/L BUN (7-17) mg/dL Creatinine (0.52-1.04) mg/dL Glucose (74-99) mg/dL POC Glucose (mg/dL) 198 H 132 H (75-99) mg/dL Plasma Lactic Acid Alex (0.7-2.0) mmol/L Calcium (8.4-10.2) mg/dL % Saturation (20-50) % Total Creatine Kinase 146 H (30-135) U/L Thrombosis Risk Factor Assmnt - Choose All That Apply Each Factor Represents 1 point: Obesity (BMI >25), Swollen legs (current) Each Risk Factor Represents 2 Points: Age 61-74 years Thrombosis Risk Factor Assessment Total Risk Factor Score: 4 Thrombosis Risk Factor Assessment Level: Moderate Risk Assessment and Plan Plan: 1. TIMMY< non oliguric ATN, multifactorial due to use of bactrim, with INVOKANA, Zestoric combination.ANd suspicion for poor oral intake. 2. Obesity 3. DM2 4. Dyslipidemia 5. CKD 3 6. HTN 7. Non anion gap metabolic acidosis. 8 Anemia of unknown etiology. Plan Continue on going care. IVF repeat bun/cr marilin in the am HOld zestoric, invokana. Urine output to be monitered. DVT prophylaxis. Triage pt to med telemetry floor.
[2016-09-03] MEDS ORDERED: ATORVASTATIN 10 MG TAB PO SCH (21:00)
[2016-09-03 21:40] LABS: Glucose,Whole Blood 132 mg/dL (75-99)
[2016-09-03 22:55] VITALS: RESP 18
[2016-09-04] MEDS: IPRATROPIUM-ALBUTEROL 3 ML NEB INHALATION SCH ×3 (07:03→16:11)
[2016-09-04 07:26] LABS: Glucose,Whole Blood 122 mg/dL (75-99)
[2016-09-04] MEDS: INSULIN LISPRO (humaLOG) 300 UNIT/3 ML VIAL SQ SCH ×2 (07:50→12:22)
[2016-09-04] MEDS: HYDROcodone/APAP 7.5-325MG 1 EACH TAB PO PRN (07:58)
[2016-09-04] MEDS: SEVELAMER 800 MG TAB PO SCH (08:03)
[2016-09-04 08:27] LABS: Calcium 8.3 mg/dL (8.4-10.2)
[2016-09-04] MEDS ORDERED: ASPIRIN 325 MG TAB PO SCH (09:00)
[2016-09-04] MEDS ORDERED: clonazePAM 0.5 MG TAB PO SCH (09:00)
[2016-09-04] MEDS ORDERED: SODIUM FERRIC GLUCONAT-SUCROSE 125 MG in SODIUM CHLORIDE 0.9% 100 ML IVPB SCH (09:00)
--- NOTE | 2016-09-04 09:11 | P.PN ---
Subjective Patient is seen in follow-up for acute kidney injury on chronic kidney disease. Patient has chronic kidney disease stage III with baseline creatinine in the range of 1.2-1.4 secondary to diabetic kidney disease and chronic NSAID use. Renal function is improving with creatinine down to 1.49 today. Appetite is good. Hemodynamically she stable. No vomiting or diarrhea. Denies any chest pain or shortness of breath. Vital signs are stable. General: The patient appeared well nourished and normally developed. HEENT: Head exam is unremarkable. Neck is without jugular venous distension. LUNGS: Lungs are clear to auscultation and percussion. Breath sounds decreased. HEART: Rate and Rhythm are regular. First and second heart sounds normal. No murmurs, rubs or gallops. ABDOMEN: Abdominal exam reveals normal bowel sounds. Non-tender and non- distended. No evidence of peritonitis. EXTREMITITES: No clubbing, cyanosis, or edema. Objective - Vital Signs Vital signs: Vital Signs Temp 97.3 F L 09/04/16 07:56 Pulse 78 09/04/16 07:56 Resp 18 09/04/16 07:56 BP 141/72 09/04/16 07:56 Pulse Ox 98 09/04/16 07:56 Intake & Output 09/03/16 09/04/16 09/04/16 18:59 06:59 18:59 Intake Total 800 1400 Output Total 200 200 Balance 600 1200 Intake: IV 800 1200 Sodium Chloride 0.9% 1, 800 1200 000 ml @ 100 mls/hr IV . Q10H [facility] Rx#:[id number] Oral 200 Output: Urine 200 200 Other: Voiding Method Bedside Commode Bedside Commode Bedside Commode # Voids 1 1 - Labs CBC & Chem 7: 09/03/16 04:41 09/04/16 07:36 Labs: Abnormal Lab Results - Last 24 Hours (Table) 09/03/16 09/03/16 09/03/16 Range/Units 04:41 04:41 08:13 Chloride (98-107) mmol/L Carbon Dioxide (22-30) mmol/L BUN (7-17) mg/dL Creatinine (0.52-1.04) mg/dL Glucose (74-99) mg/dL POC Glucose (mg/dL) (75-99) mg/dL Hemoglobin A1c 7.8 H (4.2-6.1) % Calcium (8.4-10.2) mg/dL % Saturation 16.0 L (20-50) % Total Creatine Kinase 146 H (30-135) U/L Triglycerides (<150) mg/dL HDL Cholesterol (40-60) mg/dL 09/03/16 09/03/16 09/03/16 Range/Units 12:09 18:25 21:40 Chloride (98-107) mmol/L Carbon Dioxide (22-30) mmol/L BUN (7-17) mg/dL Creatinine (0.52-1.04) mg/dL Glucose (74-99) mg/dL POC Glucose (mg/dL) 198 H 132 H 132 H (75-99) mg/dL Hemoglobin A1c (4.2-6.1) % Calcium (8.4-10.2) mg/dL % Saturation (20-50) % Total Creatine Kinase (30-135) U/L Triglycerides (<150) mg/dL HDL Cholesterol (40-60) mg/dL 09/04/16 09/04/16 Range/Units 07:06 07:36 Chloride 108 H (98-107) mmol/L Carbon Dioxide 19 L (22-30) mmol/L BUN 22 H (7-17) mg/dL Creatinine 1.49 H (0.52-1.04) mg/dL Glucose 122 H (74-99) mg/dL POC Glucose (mg/dL) 122 H (75-99) mg/dL Hemoglobin A1c (4.2-6.1) % Calcium 8.3 L (8.4-10.2) mg/dL % Saturation (20-50) % Total Creatine Kinase (30-135) U/L Triglycerides 179 H (<150) mg/dL HDL Cholesterol 34 L (40-60) mg/dL Microbiology - Last 24 Hours (Table) 09/03/16 14:55 Urine Culture - Preliminary Urine,Clean Catch Assessment and Plan Plan: Assessment: #1. Nonoliguric acute kidney injury mostly prerenal in nature secondary to diuretics and hypotension. Bactrim also a contributing factor. Improving. Creatinine down to 1.49 today. #2. Chronic kidney disease stage III secondary to diabetic kidney disease and chronic use of NSAIDs. Baseline creatinine in the range of 1.2-1.4. #3. Recent UTI. Patient was taking Bactrim. #4. Anemia. Iron deficiency present. #5. Metabolic acidosis secondary to acute kidney injury and IV fluids. #6. Diabetes mellitus. Plan: I will decrease the rate of IV fluids to be run at 50 mL an hour. Avoid nephrotoxic agents and hypotensive episodes. Ferrlecit 125 mg IV daily for 3 days. Follow-up urine culture. Encourage oral intake. Repeat electrolytes in the morning. Stable to be discharged home from nephrology standpoint. She will need to follow-up as an outpatient in the next 2 weeks. Hold diuretics for now.
[2016-09-04] MEDS: SODIUM CHLORIDE 0.9% 1,000 ML IV SCH (10:21)
[2016-09-04 11:11] LABS: Glucose,Whole Blood 158 mg/dL (75-99)
[2016-09-04] MEDS ORDERED: FERROUS SULFATE 325 MG TAB PO SCH (12:00)
[2016-09-04] MEDS ORDERED: FOLIC ACID 1 MG TAB PO SCH (12:00)
[2016-09-04 15:14] VITALS: BP 129/61; PULSE 68; TEMP 98.1
--- NOTE | 2016-09-04 17:37 | P.DS ---
Providers Date of admission: 09/03/16 00:11 Attending physician: Ted Fitzpatrick Primary care physician: Mark Woody [facility] Course: 71 yr old female with history of CKD is admitted the hospital after sustaining a fall. Pt apparently has been having some burning with micturation in the recent times. Pt was started on bactrim for the last 4 days.. Pt denies decreased oral intake, or increase urine output or diarrhea in the recent times. Pt fell due a mechanical obstruction, pt was able to get help immediately. Denies having any additional complaints. Pt appears to be anxious. NO chest pain, TRU< nause, vomiting, abdominal pain. Pt apparently has a history of urge incontinence. In the er, pt was noted to have an elevated CR around 2.5, baseline around 1.2mg /dl. Gen appearance in no distress answers questions appropriately Lungs currently clear to auscultation, no crackles appreciated. Heart regular rate and rhythm. S1-S2 heard no murmurs appreciated Abdomen is soft nontender organomegaly no suprapubic tenderness noted Neurologically moves all 4 extremities, NO cranial nerve abnormalities appreciated overtly. Lower extremity is no edema appreciated Assessment and Plan Plan: 1. TIMMY< non oliguric ATN, multifactorial due to use of bactrim, with INVOKANA, Zestoric combination.ANd suspicion for poor oral intake. 2. Obesity 3. DM2 4. Dyslipidemia 5. CKD 3 6. HTN 7. Non anion gap metabolic acidosis. 8 Iron deficiency anemia status post 3 infusions of iron sucrose. Patient is to follow-up with Dr. Johnson [facility] course and discharge plans Patient's HbA1c was well-controlled it was around 5.7. I did discussed with the patient that in Invokana, there is slight degree of dehydration due to osmotic diuresis. Hence we'll discontinue the medication at this time. Patient is to follow-up with Dr. Flores and discussed regarding new medications. Patient has multiple side effects to metformin and glimepiride and even Januvia. There is no evidence of urinary tract infection hence no aromatics will be given. Patient's kidney function significantly improved. Medications were reconciled patient will be discharged home to follow-up with Dr. Flores Patient Condition at Discharge: Serious Plan - Discharge Summary Discharge Medication List Lisinopril-Hctz 20-12.5 mg [Zestoretic 20-12.5] 1 tab PO QAM 10/21/14 [History] Lovastatin 20 mg PO HS 10/21/14 [History] clonazePAM [Clonazepam] 0.5 mg PO DAILY 10/21/14 [History] Ergocalciferol [Vitamin D2 (DRISDOL)] 50,000 unit PO TU 08/09/15 [History] Sevelamer [Renvela] 800 mg PO AC-BID 08/09/15 [History] Ferrous Sulfate [Iron (65 MG Elemental)] 325 mg PO DAILY 06/22/16 [History] Folic Acid 1 mg PO DAILY 06/22/16 [History] Lisinopril-Hctz 20-12.5 mg [Zestoretic 20-12.5] 0.5 tab PO HS 06/22/16 [History] HYDROcodone/APAP 7.5-325MG [[place] 7.5-325] 1 tab PO Q8H PRN 09/02/16 [History] Follow up Appointment(s)/Referral(s): Alec Flores MD [Primary Care Provider] - 09/11/16 10:40 am Rudolph Johnson DO [STAFF PHYSICIAN] - 1 Week (office will get records and then call patient with appt.) [facility] Visiting Nurse, [NON-STAFF] - 1 Week Patient Instructions/Handouts: Dehydration (DC), Acute Kidney Injury (DC), Renal Failure Diet (DC) Activity/Diet/Wound Care/Special Instructions: Activity as tolerated with walker Diet heart health, consistent carb Discharge Disposition: HOME SELF-CARE
== END 2016-09-04 17:23 | disposition home or self-care (01) | DRG 683 ==
LOC: EC 20:18 → 6ICU 09-03 00:11 → 5MS5E 09-03 22:15
PROVIDERS: ADMIT Hospitalist; ATTEND Hospitalist
DX: N17.0 Acute kidney failure with tubular necrosis (principal); E87.2 Acidosis; I95.9 Hypotension, unspecified; E11.22 Type 2 diabetes mellitus with diabetic chronic kidney disease; E86.0 Dehydration; D50.9 Iron deficiency anemia, unspecified; E66.9 Obesity, unspecified; E78.5 Hyperlipidemia, unspecified; F32.9 Major depressive disorder, single episode, unspecified; F41.9 Anxiety disorder, unspecified; I12.9 Hypertensive chronic kidney disease with stage 1 through stage 4 chronic kidney disease, or unspecified chronic kidney disease; N18.3 Chronic kidney disease, stage 3 (moderate); N39.41 Urge incontinence; T39.395A Adverse effect of other nonsteroidal anti-inflammatory drugs [NSAID], initial encounter; T46.4X5A Adverse effect of angiotensin-converting-enzyme inhibitors, initial encounter; T37.0X5A Adverse effect of sulfonamides, initial encounter; T50.995A Adverse effect of other drugs, medicaments and biological substances, initial encounter; T50.2X5A Adverse effect of carbonic-anhydrase inhibitors, benzothiadiazides and other diuretics, initial encounter; Z79.1 Long term (current) use of non-steroidal anti-inflammatories (NSAID); Z79.899 Other long term (current) drug therapy; Z87.891 Personal history of nicotine dependence; Z88.8 Allergy status to other drugs, medicaments and biological substances; W19.XXXA Unspecified fall, initial encounter; Y92.9 Unspecified place or not applicable
CPT/HCPCS: 36415; 51701; 71020; 72125; 73502; 78582; 80048; 80053; 80061; 81001; 82009; 82550; 82553; 82728; 83036; 83520; 83540; 83550; 83605; 83735; 83880; 84100; 84484; 85025; 85379; 85610; 85730; 87040; 87086; 87502; 93005; 93970; 94640; 96361; 96365; 96375; 99291

== ENCOUNTER → 2016-10-17 | Outpatient (CLI) | payer MEDICARE ==
[2016-10-17 08:49] LABS: Basophils % (A) 0 %; CH 34.4; CHCM 32.6; Eosinophils # (A) 0.1 k/uL (0-0.7); Eosinophils % (A) 1 %; HCT 36.3 % (34.0-46.0); HDW 2.92; HGB 11.5 gm/dL (11.4-16.0); Luc # (Auto) 0.19; Luc % (Auto) 2; Lymphocytes % (A) 12 %; MCH 33.6 pg (25.0-35.0); MCHC 31.7 g/dL (31.0-37.0); MCV 106.1 fL (80.0-100.0); Macrocytosis Moderate; Mean Platelet Volume 6.9; Monocytes # (A) 0.3 k/uL (0-1.0); Monocytes % (A) 3 %; Neutrophils # (A) 7.3 k/uL (1.3-7.7); Neutrophils % (A) 82 %; RBC 3.42 m/uL (3.80-5.40); RDW 14.2 % (11.5-15.5); WBC 8.8 k/uL (3.8-10.6); WBC (Perox) 8.96
[2016-10-17 09:14] LABS: Appearance,Urine Cloudy (Clear); Bacteria,Urine Rare /hpf; Bilirubin,Urine Negative (Negative); Glucose,Urine (UA) Negative (Negative); Ketones,Urine Negative (Negative); Leukocyte Esterase,Urine Moderate (Negative); Mucus,Urine Rare /hpf; Nitrite,Urine Negative (Negative); Particle Count 17350; Protein,Urine 1+ (Negative); RBC,Urine 4 /hpf (0-5); Squamous Epithelial Cell,Urine 27 /hpf (0-4); UA Billing (MACRO vs. MICRO) MICRO; WBC,Urine 27 /hpf (0-5)
[2016-10-17 10:22] LABS: Calcium 9.5 mg/dL (8.4-10.2); Phosphorous 4.5 mg/dL (2.5-4.5); Potassium 4.8 mmol/L (3.5-5.1); Total Bilirubin 0.5 mg/dL (0.2-1.3); Total Protein 7.2 g/dL (6.3-8.2)
[2016-10-17 10:32] LABS: % Iron Saturation 16.9 % (20-50)
== END ==
LOC: LABWHC1 08:10
PROVIDERS: ATTEND Nurse Practitioner Family
DX: N18.3 Chronic kidney disease, stage 3 (moderate) (principal); D50.9 Iron deficiency anemia, unspecified; E21.3 Hyperparathyroidism, unspecified; G62.9 Polyneuropathy, unspecified
CPT/HCPCS: 36415; 80053; 81001; 82306; 82728; 83540; 83550; 83735; 83970; 84100; 85025

== ENCOUNTER 2017-03-24 15:25 | Observation (INO) | payer MEDICARE ==
[2017-03-24] MEDS ORDERED: SODIUM CHLORIDE 0.9% 500 ML IV STA (17:15)
[2017-03-24 17:51] LABS: Basophils % (A) 0 %; CH 34.5; CHCM 34.7; Eosinophils # (A) 0.1 k/uL (0-0.7); Eosinophils % (A) 1 %; HCT 33.6 % (34.0-46.0); HDW 2.82; HGB 11.3 gm/dL (11.4-16.0); Luc # (Auto) 0.17; Luc % (Auto) 2; Lymphocytes # (A) 1.1 k/uL (1.0-4.8); Lymphocytes % (A) 12 %; MCH 33.6 pg (25.0-35.0); MCHC 33.5 g/dL (31.0-37.0); MCV 100.1 fL (80.0-100.0); Macrocytosis Slight; Mean Platelet Volume 7.6; Monocytes # (A) 0.3 k/uL (0-1.0); Monocytes % (A) 4 %; Neutrophils % (A) 82 %; RBC 3.36 m/uL (3.80-5.40); RDW 14.2 % (11.5-15.5); WBC 9.8 k/uL (3.8-10.6); WBC (Perox) 10.12
[2017-03-24 17:56] LABS: Appearance,Urine Cloudy (Clear); Bacteria,Urine Many /hpf; Bilirubin,Urine Negative (Negative); Glucose,Urine (UA) Negative (Negative); Ketones,Urine Negative (Negative); Leukocyte Esterase,Urine Moderate (Negative); Mucus,Urine Rare /hpf; Nitrite,Urine Negative (Negative); Particle Count 7394; Protein,Urine Negative (Negative); RBC,Urine <1 /hpf (0-5); Specific Gravity,Urine 1.005 (1.001-1.035); Squamous Epithelial Cell,Urine 4 /hpf (0-4); UA Billing (MACRO vs. MICRO) MICRO; Urobilinogen,Urine <2.0 mg/dL (<2.0); WBC,Urine 40 /hpf (0-5)
[2017-03-24 18:02] LABS: Magnesium 1.7 mg/dL (1.6-2.3); Potassium 5.8 mmol/L (3.5-5.1); Total Protein 7.2 g/dL (6.3-8.2)
[2017-03-24 18:11] LABS: Prothrombin Time 10.4 sec (9.0-12.0)
[2017-03-24 18:13] LABS: Creatine Kinase 99 U/L (30-135)
--- NOTE | 2017-03-24 18:15 | XR ---
EXAMINATION TYPE: XR chest 2V DATE OF EXAM: 03/24/2017 COMPARISON: 09/02/2016 HISTORY: Dizziness TECHNIQUE: Frontal and lateral views of the chest are obtained. FINDINGS: There is no heart failure nor confluent pneumonic infiltrate. There are no hilar masses. T here is spurring in the thoracic spine. There are chest leads. IMPRESSION: No active cardiopulmonary disease. No change.
[2017-03-24 18:19] LABS: Partial Thromboplastin Time 20.3 sec (22.0-30.0)
[2017-03-24] MEDS ORDERED: CALCIUM GLUCONATE 1,000 MG in SODIUM CHLORIDE 0.9% 100 ML IVPB ONE (18:21)
[2017-03-24] MEDS ORDERED: SODIUM POLYSTYRENE SULFONATE 15 GM/60 ML BOTTLE PO STA (18:22)
[2017-03-24 18:24] LABS: Creatine Kinase MB 0.5 ng/mL (0.0-2.4); Troponin I <0.012 ng/mL (0.000-0.034)
[2017-03-24 18:33] VITALS: RESP 18
[2017-03-24] MEDS: SODIUM CHLORIDE 0.9% 1,000 ML IV SCH (18:58)
[2017-03-24] MEDS ORDERED: RX INFO: IV CONTRAST WAS GIVEN 1 EACH MISC MISCELLANE PRN (20:01)
--- NOTE | 2017-03-24 20:48 | CT ---
EXAMINATION TYPE: CT angio chest DATE OF EXAM: 03/24/2017 8:41 PM COMPARISON: NONE HISTORY: Dizziness, nausea, and weakness. CT DLP: 535.1 mGycm Automated exposure control for dose reduction was used. CONTRAST: CTA scan of the thorax is performed with IV Contrast, patient injected with 80 mL of Visipaque 320, p ulmonary embolism protocol. There are 3-D post processed images.. FINDINGS: The lungs are clear of consolidation. There is no pleural effusion. Heart size is normal. There is no pericardial effusion. Thoracic aorta is atheromatous. There is no evidence of aneurysm or dissection. I see no filling defects in the pulmonary arteries. There is some optimal contrast density in the ter tiary branches of the lower lobe pulmonary arteries. There is no mediastinal adenopathy. There are no hilar masses. There is spurring in the thoracic spin e.. IMPRESSION: NO EVIDENCE OF PULMONARY EMBOLISM. ATHEROSCLEROTIC VASCULAR DISEASE.
[2017-03-24] MEDS ORDERED: ACETAMINOPHEN TAB 325 MG TAB PO PRN (21:27)
[2017-03-24] MEDS ORDERED: NALOXONE 0.4 MG/ML 1 ML VIAL IV PRN (21:27)
[2017-03-24] MEDS ORDERED: ONDANSETRON 4 MG/2 ML VIAL IVP PRN (21:27)
--- NOTE | 2017-03-24 21:39 | ED ---
General Adult HPI - General Chief complaint: Weakness Stated complaint: blood pressure problems Time Seen by Provider: 03/24/17 17:05 Source: patient, RN notes reviewed Mode of arrival: wheelchair Limitations: no limitations - History of Present Illness Initial comments: 71-year-old female presents with a one-day history of generalized weakness and shaking. Patient states she recently began to medications including antidepressant and a pain medication. Her symptoms began shortly after these medications were taken although she does state she took them yesterday with no issues. Patient denies chest pain. Denies abdominal pain. Denies fever or chills. States she does have shortness of breath at times which is primarily exertional. She has history of kidney disease. Denies any decrease in urine output. - Related Data Home Medications Medication Instructions Recorded Confirmed Lisinopril-Hctz 20-12.5 mg 1 tab PO DAILY 10/21/14 03/24/17 [Zestoretic 20-12.5] Lovastatin 20 mg PO HS 10/21/14 03/24/17 clonazePAM [Clonazepam] 0.5 mg PO DAILY 10/21/14 03/24/17 Ergocalciferol [Vitamin D2 50,000 unit PO TU 08/09/15 03/24/17 (DRISDOL)] Sevelamer [Renvela] 800 mg PO AC-BID 08/09/15 03/24/17 Ferrous Sulfate [Iron (65 MG 325 mg PO DAILY 06/22/16 03/24/17 Elemental)] Folic Acid 1 mg PO DAILY 06/22/16 03/24/17 Lisinopril-Hctz 20-12.5 mg 0.5 tab PO HS 06/22/16 03/24/17 [Zestoretic 20-12.5] DULoxetine HCL [Cymbalta] 30 mg PO DAILY 03/24/17 03/24/17 oxyCODONE HCL/ACETAMINOPHEN 1 tab PO TID PRN 03/24/17 03/24/17 [Percocet 7.5-325 mg] Allergies Allergy/AdvReac Type Severity Reaction Status Date / Time glimepiride Allergy Mild Unknown Verified 03/24/17 17:03 ibuprofen Allergy Unknown Verified 03/24/17 17:03 metformin Allergy Unknown Verified 03/24/17 17:03 tizanidine AdvReac LOW BLOOD Verified 03/24/17 17:03 PRESSURE/SLEEPY Review of Systems ROS Statement: Those systems with pertinent positive or pertinent negative responses have been documented in the HPI. ROS Other: All systems not noted in ROS Statement are negative. Past Medical History Past Medical History: Diabetes Mellitus, Hyperlipidemia, Hypertension Additional Past Medical History / Comment(s): kidney disease History of Any Multi-Drug Resistant Organisms: None Reported Past Surgical History: Cholecystectomy Additional Past Surgical History / Comment(s): D & C Past Anesthesia/Blood Transfusion Reactions: No Reported Reaction Past Psychological History: Anxiety, Depression Smoking Status: Former smoker Past Alcohol Use History: None Reported Past Drug Use History: None Reported - Past Family History Father Family Medical History: Cancer General Exam Limitations: no limitations General appearance: alert, in no apparent distress Head exam: Present: atraumatic, normocephalic Eye exam: Present: normal appearance, PERRL ENT exam: Present: normal exam, mucous membranes moist Neck exam: Present: normal inspection. Absent: tenderness Respiratory exam: Present: normal lung sounds bilaterally. Absent: respiratory distress, wheezes Cardiovascular Exam: Present: regular rate, normal rhythm GI/Abdominal exam: Present: soft. Absent: distended, tenderness Extremities exam: Present: normal inspection, normal capillary refill, pedal edema Back exam: Present: normal inspection. Absent: CVA tenderness (R), CVA tenderness (L) Neurological exam: Present: alert, oriented X3, CN II-XII intact. Absent: motor sensory deficit Psychiatric exam: Present: normal affect, normal mood Skin exam: Present: warm, dry. Absent: cyanosis, diaphoretic Course Vital Signs 03/24/17 03/24/17 03/24/17 15:40 17:45 18:00 Temperature 98.1 F Pulse Rate 72 62 61 Respiratory 20 20 18 Rate Blood Pressure 111/53 103/54 99/50 O2 Sat by Pulse 98 99 99 Oximetry 03/24/17 20:55 Temperature Pulse Rate 88 Respiratory 18 Rate Blood Pressure 135/66 O2 Sat by Pulse 98 Oximetry EKG Findings - EKG Comments: EKG Findings:: EKG shows normal sinus rhythm, with ventricular is 64, para 160, QRS duration 86, QTC 381, no signs of ST segment elevation or depression Medical Decision Making - Medical Decision Making 71-year-old female presents with generalized weakness and some shortness of breath. Laboratory studies reveal hemoglobin of 11.3 which is stable, d-dimer is elevated at 6.8 and given her chief complaint of shortness of breath CT angiography is obtained which is negative for PE. Patient's creatinine is 1.1, potassium is 5.8. This is treated with normal saline, Kayexalate, and calcium gluconate. Sodium is low at 131. Urinalysis does reveal 40 WBCs, patient does deny dysuria. Urine culture is pending prior to treatment. Patient will be admitted for treatment of hyperkalemia. Diagnosis: Chronic kidney disease, hyperkalemia, hyponatremia. - Lab Data Result diagrams: 03/24/17 17:40 03/24/17 17:40 Lab Results 03/24/17 03/24/17 03/24/17 Range/Units 17:40 17:40 17:40 WBC 9.8 (3.8-10.6) k/uL RBC 3.36 L (3.80-5.40) m/uL Hgb 11.3 L (11.4-16.0) gm/dL Hct 33.6 L (34.0-46.0) % MCV 100.1 H (80.0-100.0) fL MCH 33.6 (25.0-35.0) pg MCHC 33.5 (31.0-37.0) g/dL RDW 14.2 (11.5-15.5) % Plt Count 246 (150-450) k/uL Neutrophils % 82 % Lymphocytes % 12 % Monocytes % 4 % Eosinophils % 1 % Basophils % 0 % Neutrophils # 8.0 H (1.3-7.7) k/uL Lymphocytes # 1.1 (1.0-4.8) k/uL Monocytes # 0.3 (0-1.0) k/uL Eosinophils # 0.1 (0-0.7) k/uL Basophils # 0.0 (0-0.2) k/uL Macrocytosis Slight PT (9.0-12.0) sec INR (<1.2) APTT (22.0-30.0) sec D-Dimer (<0.60) mg/L FEU Sodium 131 L (137-145) mmol/L Potassium 5.8 H (3.5-5.1) mmol/L Chloride 99 (98-107) mmol/L Carbon Dioxide 20 L (22-30) mmol/L Anion Gap 12 mmol/L BUN 21 H (7-17) mg/dL Creatinine 1.10 H (0.52-1.04) mg/dL Est GFR (MDRD) Af Amer 60 (>60 ml/min/1.73 sqM) Est GFR (MDRD) Non-Af 49 (>60 ml/min/1.73 sqM) Glucose 75 (74-99) mg/dL Plasma Lactic Acid Alex (0.7-2.0) mmol/L Calcium 9.0 (8.4-10.2) mg/dL Phosphorus 4.0 (2.5-4.5) mg/dL Magnesium 1.7 (1.6-2.3) mg/dL Total Bilirubin 1.0 (0.2-1.3) mg/dL AST 42 H (14-36) U/L ALT 33 (9-52) U/L Alkaline Phosphatase 70 (38-126) U/L Total Creatine Kinase 99 (30-135) U/L CK-MB (CK-2) 0.5 (0.0-2.4) ng/mL CK-MB (CK-2) Rel Index 0.5 Troponin I <0.012 (0.000-0.034) ng/mL Total Protein 7.2 (6.3-8.2) g/dL Albumin 4.2 (3.5-5.0) g/dL Urine Color Urine Appearance (Clear) Urine pH (5.0-8.0) Ur Specific [place] (1.001-1.035) Urine Protein (Negative) Urine Glucose (UA) (Negative) Urine Ketones (Negative) Urine Blood (Negative) Urine Nitrite (Negative) Urine Bilirubin (Negative) Urine Urobilinogen (<2.0) mg/dL Ur Leukocyte Esterase (Negative) Urine RBC (0-5) /hpf Urine WBC (0-5) /hpf Urine WBC Clumps (None) /hpf Ur Squamous Epith Cells (0-4) /hpf Urine Bacteria (None) /hpf Hyaline Casts (0-2) /lpf Urine Mucus (None) /hpf 03/24/17 03/24/17 03/24/17 Range/Units 17:40 17:40 17:40 WBC (3.8-10.6) k/uL RBC (3.80-5.40) m/uL Hgb (11.4-16.0) gm/dL Hct (34.0-46.0) % MCV (80.0-100.0) fL MCH (25.0-35.0) pg MCHC (31.0-37.0) g/dL RDW (11.5-15.5) % Plt Count (150-450) k/uL Neutrophils % % Lymphocytes % % Monocytes % % Eosinophils % % Basophils % % Neutrophils # (1.3-7.7) k/uL Lymphocytes # (1.0-4.8) k/uL Monocytes # (0-1.0) k/uL Eosinophils # (0-0.7) k/uL Basophils # (0-0.2) k/uL Macrocytosis PT 10.4 (9.0-12.0) sec INR 1.0 (<1.2) APTT 20.3 L (22.0-30.0) sec D-Dimer 0.68 H (<0.60) mg/L FEU Sodium (137-145) mmol/L Potassium (3.5-5.1) mmol/L Chloride (98-107) mmol/L Carbon Dioxide (22-30) mmol/L Anion Gap mmol/L BUN (7-17) mg/dL Creatinine (0.52-1.04) mg/dL Est GFR (MDRD) Af Amer (>60 ml/min/1.73 sqM) Est GFR (MDRD) Non-Af (>60 ml/min/1.73 sqM) Glucose (74-99) mg/dL Plasma Lactic Acid Alex 1.8 (0.7-2.0) mmol/L Calcium (8.4-10.2) mg/dL Phosphorus (2.5-4.5) mg/dL Magnesium (1.6-2.3) mg/dL Total Bilirubin (0.2-1.3) mg/dL AST (14-36) U/L ALT (9-52) U/L Alkaline Phosphatase (38-126) U/L Total Creatine Kinase (30-135) U/L CK-MB (CK-2) (0.0-2.4) ng/mL CK-MB (CK-2) Rel Index Troponin I (0.000-0.034) ng/mL Total Protein (6.3-8.2) g/dL Albumin (3.5-5.0) g/dL Urine Color Light Yellow Urine Appearance Cloudy H (Clear) Urine pH 5.0 (5.0-8.0) Ur Specific [place] 1.005 (1.001-1.035) Urine Protein Negative (Negative) Urine Glucose (UA) Negative (Negative) Urine Ketones Negative (Negative) Urine Blood Negative (Negative) Urine Nitrite Negative (Negative) Urine Bilirubin Negative (Negative) Urine Urobilinogen <2.0 (<2.0) mg/dL Ur Leukocyte Esterase Moderate H (Negative) Urine RBC <1 (0-5) /hpf Urine WBC 40 H (0-5) /hpf Urine WBC Clumps Occasional H (None) /hpf Ur Squamous Epith Cells 4 (0-4) /hpf Urine Bacteria Many H (None) /hpf Hyaline Casts 4 H (0-2) /lpf Urine Mucus Rare H (None) /hpf Critical Care Time Critical Care Time: Yes Total Critical Care Time: 35 Disposition Clinical Impression: Hyponatremia, Hyperkalemia Disposition: ADMITTED IP TO THIS [facility] Condition: Stable Referrals: Medina Snow DO [Primary Care Provider] - 1-2 days Decision to Admit Reason: Admit from EC Decision Date: 03/24/17 Decision Time: 20:30
[2017-03-24] MEDS ORDERED: ATORVASTATIN 10 MG TAB PO SCH (22:31)
[2017-03-24] MEDS ORDERED: LISINOPRIL-HCTZ 20-12.5 MG 1 EACH TAB PO SCH (22:31)
[2017-03-24 22:42] VITALS: BMI 36.3
[2017-03-24] MEDS: oxyCODONE-APAP 7.5-325MG 1 EACH TAB PO PRN (23:42)
[2017-03-25 06:03] LABS: Basophils % (A) 1 %; CH 34.2; CHCM 33.9; Eosinophils # (A) 0.1 k/uL (0-0.7); Eosinophils % (A) 2 %; HCT 32.8 % (34.0-46.0); HDW 2.71; HGB 10.8 gm/dL (11.4-16.0); Luc # (Auto) 0.13; Luc % (Auto) 2; Lymphocytes # (A) 1.3 k/uL (1.0-4.8); Lymphocytes % (A) 19 %; MCH 33.3 pg (25.0-35.0); MCHC 32.8 g/dL (31.0-37.0); MCV 101.5 fL (80.0-100.0); Macrocytosis Slight; Mean Platelet Volume 7.1; Monocytes # (A) 0.3 k/uL (0-1.0); Monocytes % (A) 4 %; Neutrophils % (A) 73 %; RBC 3.23 m/uL (3.80-5.40); RDW 14.2 % (11.5-15.5); WBC 6.8 k/uL (3.8-10.6); WBC (Perox) 7.06
[2017-03-25 06:05] LABS: Glucose,Whole Blood 101 mg/dL (75-99)
[2017-03-25 06:15] LABS: Calcium 9.2 mg/dL (8.4-10.2); Magnesium 1.8 mg/dL (1.6-2.3); Phosphorous 4.7 mg/dL (2.5-4.5); Total Bilirubin 0.5 mg/dL (0.2-1.3); Total Protein 6.4 g/dL (6.3-8.2)
[2017-03-25] MEDS: INSULIN LISPRO (humaLOG) 300 UNIT/3 ML VIAL SQ SCH ×2 (06:18→12:48)
[2017-03-25] MEDS ORDERED: SEVELAMER 800 MG TAB PO SCH (07:30)
[2017-03-25] MEDS ORDERED: LISINOPRIL-HCTZ 20-12.5 MG 1 EACH TAB PO SCH ×2 (09:00→21:00)
[2017-03-25] MEDS ORDERED: clonazePAM 0.5 MG TAB PO SCH (09:00)
[2017-03-25] MEDS ORDERED: FERROUS SULFATE 325 MG TAB PO SCH (09:00)
[2017-03-25] MEDS ORDERED: FOLIC ACID 1 MG TAB PO SCH (09:00)
[2017-03-25] MEDS ORDERED: DULoxetine HCL 30 MG CAPSULE.DR PO SCH (09:00)
[2017-03-25] MEDS: oxyCODONE-APAP 7.5-325MG 1 EACH TAB PO PRN (09:56)
[2017-03-25 11:44] LABS: Glucose,Whole Blood 138 mg/dL (75-99)
[2017-03-25 12:14] LABS: Hemoglobin A1C 6.2 % (4.2-6.1)
[2017-03-25] MEDS: SODIUM CHLORIDE 0.9% 1,000 ML IV SCH (12:48)
--- NOTE | 2017-03-25 13:57 | P.HPIM ---
History of Present Illness H&P Date: 03/25/17 Chief Complaint: Generalized weakness This is a 71-year-old female, patient of [facility]. She has a known past mental history of chronic kidney disease, diabetes mellitus, hypertension and chronic back pain. Patient presents to the emergency room with complaints of generalized weakness and slight shaking in her hand. She also had some shortness of breath and just did not feel right. She was found to have hyperkalemia with a potassium of 5.8 and also evidence of a urinary tract infection. Patient received Kayexalate. Patient's potassium has come down to 5.0. Patient denies any urinary symptoms. She does report being placed on 2 new medications the Percocet and Cymbalta. On the shaking has resolved as well as his shortness of breath. CTA of the chest was negative for PE. EKG had shown normal sinus rhythm. She's been on telemetry monitoring and been continuing and a normal sinus rhythm. Patient's symptoms have resolved. She does report eating more potassium-rich foods lately.. Patient denies any chest pain. Denies any nausea or vomiting. Denies any bowel movement changes or urinary symptoms. Denies any fevers chills or sweats. Review of Systems Please refer to HPI otherwise unremarkable Past Medical History Past Medical History: Diabetes Mellitus, Hyperlipidemia, Hypertension, Renal Disease Additional Past Medical History / Comment(s): kidney disease History of Any Multi-Drug Resistant Organisms: None Reported Past Surgical History: Cholecystectomy Additional Past Surgical History / Comment(s): D & C. right hand tendon surgery Past Anesthesia/Blood Transfusion Reactions: No Reported Reaction Past Psychological History: Anxiety, Depression Smoking Status: Former smoker Past Alcohol Use History: None Reported Past Drug Use History: None Reported - Past Family History Father Family Medical History: Cancer Medications and Allergies Home Medications Medication Instructions Recorded Confirmed Type Lisinopril-Hctz 20-12.5 mg 1 tab PO DAILY 10/21/14 03/24/17 History [Zestoretic 20-12.5] Lovastatin 20 mg PO HS 10/21/14 03/24/17 History clonazePAM [Clonazepam] 0.5 mg PO DAILY 10/21/14 03/24/17 History Ergocalciferol [Vitamin D2 50,000 unit PO TU 08/09/15 03/24/17 History (DRISDOL)] Sevelamer [Renvela] 800 mg PO AC-BID 08/09/15 03/24/17 History Ferrous Sulfate [Iron (65 MG 325 mg PO DAILY 06/22/16 03/24/17 History Elemental)] Folic Acid 1 mg PO DAILY 06/22/16 03/24/17 History Lisinopril-Hctz 20-12.5 mg 0.5 tab PO HS 06/22/16 03/24/17 History [Zestoretic 20-12.5] DULoxetine HCL [Cymbalta] 30 mg PO DAILY 03/24/17 03/24/17 History glipiZIDE [Glucotrol] 10 mg PO BID 03/24/17 03/24/17 History oxyCODONE HCL/ACETAMINOPHEN 1 tab PO TID PRN 03/24/17 03/24/17 History [Percocet 7.5-325 mg] Allergies Allergy/AdvReac Type Severity Reaction Status Date / Time glimepiride Allergy Mild Unknown Verified 03/24/17 17:03 ibuprofen Allergy Unknown Verified 03/24/17 17:03 metformin Allergy Unknown Verified 03/24/17 17:03 tizanidine AdvReac LOW BLOOD Verified 03/24/17 17:03 PRESSURE/SLEEPY Physical Exam Vitals: Vital Signs Temp Pulse Pulse Resp BP BP Pulse Ox 03/25/17 08:00 97.7 F 75 18 123/59 96 03/25/17 04:00 67 18 108/53 97 03/24/17 22:48 97.6 F 65 18 133/63 96 03/24/17 22:32 97.6 F 72 18 141/70 96 03/24/17 21:58 98.7 F 65 18 133/63 97 03/24/17 20:55 88 18 135/66 98 03/24/17 18:00 61 18 99/50 99 03/24/17 17:45 62 20 103/54 99 03/24/17 15:40 98.1 F 72 20 111/53 98 Intake and Output 03/24/17 03/25/17 03/25/17 22:59 06:59 14:59 Intake Total 800 236 Balance 800 236 Intake: IV 800 Sodium Chloride 0.9% 1, 800 000 ml @ 75 mls/hr IV . [id number] [facility] Rx#:[id number] Oral 236 Other: # Voids 1 2 Weight 111.7 kg 111.7 kg Head normocephalic Neck supple Lungs clear to auscultation bilaterally no wheezing or crackles Heart regular rate and rhythm S1-S2, no rub or gallop Abdomen is soft nontender nondistended positive bowel sounds no hepatosplenomegaly Extremities no edema Neuro alert and orientated to 3 Results CBC & Chem 7: 03/25/17 05:25 03/25/17 05:25 Labs: Abnormal Lab Results - Last 24 Hours (Table) 03/24/17 03/24/17 03/24/17 Range/Units 17:40 17:40 17:40 RBC 3.36 L (3.80-5.40) m/uL Hgb 11.3 L (11.4-16.0) gm/dL Hct 33.6 L (34.0-46.0) % MCV 100.1 H (80.0-100.0) fL Neutrophils # 8.0 H (1.3-7.7) k/uL APTT 20.3 L (22.0-30.0) sec D-Dimer 0.68 H (<0.60) mg/L FEU Sodium 131 L (137-145) mmol/L Potassium 5.8 H (3.5-5.1) mmol/L Carbon Dioxide 20 L (22-30) mmol/L BUN 21 H (7-17) mg/dL Creatinine 1.10 H (0.52-1.04) mg/dL POC Glucose (mg/dL) (75-99) mg/dL Hemoglobin A1c (4.2-6.1) % Phosphorus (2.5-4.5) mg/dL AST 42 H (14-36) U/L Urine Appearance (Clear) Ur Leukocyte Esterase (Negative) Urine WBC (0-5) /hpf Urine WBC Clumps (None) /hpf Urine Bacteria (None) /hpf Hyaline Casts (0-2) /lpf Urine Mucus (None) /hpf 03/24/17 03/25/17 03/25/17 Range/Units 17:40 05:25 05:25 RBC 3.23 L (3.80-5.40) m/uL Hgb 10.8 L (11.4-16.0) gm/dL Hct 32.8 L (34.0-46.0) % MCV 101.5 H (80.0-100.0) fL Neutrophils # (1.3-7.7) k/uL APTT (22.0-30.0) sec D-Dimer (<0.60) mg/L FEU Sodium 136 L (137-145) mmol/L Potassium (3.5-5.1) mmol/L Carbon Dioxide (22-30) mmol/L BUN 19 H (7-17) mg/dL Creatinine 1.10 H (0.52-1.04) mg/dL POC Glucose (mg/dL) (75-99) mg/dL Hemoglobin A1c (4.2-6.1) % Phosphorus 4.7 H (2.5-4.5) mg/dL AST (14-36) U/L Urine Appearance Cloudy H (Clear) Ur Leukocyte Esterase Moderate H (Negative) Urine WBC 40 H (0-5) /hpf Urine WBC Clumps Occasional H (None) /hpf Urine Bacteria Many H (None) /hpf Hyaline Casts 4 H (0-2) /lpf Urine Mucus Rare H (None) /hpf 03/25/17 03/25/17 03/25/17 Range/Units 05:25 06:03 11:41 RBC (3.80-5.40) m/uL Hgb (11.4-16.0) gm/dL Hct (34.0-46.0) % MCV (80.0-100.0) fL Neutrophils # (1.3-7.7) k/uL APTT (22.0-30.0) sec D-Dimer (<0.60) mg/L FEU Sodium (137-145) mmol/L Potassium (3.5-5.1) mmol/L Carbon Dioxide (22-30) mmol/L BUN (7-17) mg/dL Creatinine (0.52-1.04) mg/dL POC Glucose (mg/dL) 101 H 138 H (75-99) mg/dL Hemoglobin A1c 6.2 H (4.2-6.1) % Phosphorus (2.5-4.5) mg/dL AST (14-36) U/L Urine Appearance (Clear) Ur Leukocyte Esterase (Negative) Urine WBC (0-5) /hpf Urine WBC Clumps (None) /hpf Urine Bacteria (None) /hpf Hyaline Casts (0-2) /lpf Urine Mucus (None) /hpf Microbiology - Last 24 Hours (Table) 03/24/17 17:40 Urine Culture - Preliminary Urine,Clean Catch Thrombosis Risk Factor Assmnt - Choose All That Apply Each Factor Represents 1 point: Obesity (BMI >25), Swollen legs (current) Other Risk Factors: No Other congenital or acquired thrombophilia - If yes, enter type in comment: No Thrombosis Risk Factor Assessment Total Risk Factor Score: 2 Thrombosis Risk Factor Assessment Level: Low Risk Assessment and Plan Plan: 1. Hyperkalemia: Likely multifactorial related to the lisinopril and potassium rich diet and chronic kidney disease. Patient received Kayexalate. Potassium has decreased from 5.8-4.0. We will decrease her lisinopril/ hydrochlorothiazide from twice a day to once a day 2. Uncomplicated UTI patient started on Rocephin. We'll continue with Keflex for 5 more days 3. Chronic kidney disease, stage IIIa 4. Essential hypertension 5. Diabetes mellitus type 2 6. Chronic back pain 7. Depression Time with Patient: Greater than 30 (Greater than 50% of the total time spent in counseling and coordination of care.I performed an examination of the patient and discussed their management with the physician Transition Assistant. I have reviewed the Physician Transition Assistant's notes and agree with the documented findings and plan of care)
--- NOTE | 2017-03-25 14:03 | P.DS ---
Providers Date of admission: 03/24/17 21:27 Expected date of discharge: 03/25/17 Attending physician: Jony Bone Primary care physician: Medina Snow [facility] Course: Discharge diagnosis 1. Hyperkalemia: Likely multifactorial related to the lisinopril and potassium rich diet and chronic kidney disease. Patient received Kayexalate. Potassium has decreased from 5.8-4.0. We will decrease her lisinopril/ hydrochlorothiazide from twice a day to once a day 2. Uncomplicated UTI patient started on Rocephin. We'll continue with Keflex for 5 more days 3. Chronic kidney disease, stage IIIa 4. Essential hypertension 5. Diabetes mellitus type 2 6. Chronic back pain 7. Depression Hospital course This is a 71-year-old female, patient of [facility]. She has a known past mental history of chronic kidney disease, diabetes mellitus, hypertension and chronic back pain. Patient presents to the emergency room with complaints of generalized weakness and slight shaking in her hand. She also had some shortness of breath and just did not feel right. She was found to have hyperkalemia with a potassium of 5.8 and also evidence of a urinary tract infection. Patient received Kayexalate. Patient's potassium has come down to 5.0. Patient denies any urinary symptoms. She does report being placed on 2 new medications the Percocet and Cymbalta. On the shaking has resolved as well as his shortness of breath. CTA of the chest was negative for PE. EKG had shown normal sinus rhythm. She's been on telemetry monitoring and been continuing and a normal sinus rhythm. Patient's symptoms have resolved. She does report eating more potassium-rich foods lately. Patient's potassium level has normalized. Symptoms have resolved. Patient is medically stable for discharge. Please note that her symptoms were likely related to the elevated potassium as well as her urinary tract infection. She will continue with Keflex 500 mg twice a day for 5 days to treat the UTI. Also, her lisinopril/ hydrochlorothiazide dose was adjusted from twice a day to once a day. Patient is medically stable for discharge. We'll have her follow-up with her PCP in 1 week and recommend having a BMP checked I performed an examination of the patient and discussed their management with the physician [employer] Laborer. I have reviewed the Physician Am[employer] Assembly Laborer's notes and agree with the documented findings and plan of care Patient Condition at Discharge: Stable Plan - Discharge Summary New Discharge Prescriptions: New Cephalexin [Keflex] 500 mg PO Q12HR #10 cap Continue clonazePAM [Clonazepam] 0.5 mg PO DAILY Lovastatin 20 mg PO HS Lisinopril-Hctz 20-12.5 mg [Zestoretic 20-12.5] 1 tab PO DAILY Sevelamer [Renvela] 800 mg PO AC-BID Ergocalciferol [Vitamin D2 (DRISDOL)] 50,000 unit PO TU Folic Acid 1 mg PO DAILY Ferrous Sulfate [Iron (65 MG Elemental)] 325 mg PO DAILY oxyCODONE HCL/ACETAMINOPHEN [Percocet 7.5-325 mg] 1 tab PO TID PRN PRN Reason: Pain DULoxetine HCL [Cymbalta] 30 mg PO DAILY glipiZIDE [Glucotrol] 10 mg PO BID Discontinued Lisinopril-Hctz 20-12.5 mg [Zestoretic 20-12.5] 0.5 tab PO HS Discharge Medication List Lisinopril-Hctz 20-12.5 mg [Zestoretic 20-12.5] 1 tab PO DAILY 10/21/14 [History ] Lovastatin 20 mg PO HS 10/21/14 [History] clonazePAM [Clonazepam] 0.5 mg PO DAILY 10/21/14 [History] Ergocalciferol [Vitamin D2 (DRISDOL)] 50,000 unit PO TU 08/09/15 [History] Sevelamer [Renvela] 800 mg PO AC-BID 08/09/15 [History] Ferrous Sulfate [Iron (65 MG Elemental)] 325 mg PO DAILY 06/22/16 [History] Folic Acid 1 mg PO DAILY 06/22/16 [History] DULoxetine HCL [Cymbalta] 30 mg PO DAILY 03/24/17 [History] glipiZIDE [Glucotrol] 10 mg PO BID 03/24/17 [History] oxyCODONE HCL/ACETAMINOPHEN [Percocet 7.5-325 mg] 1 tab PO TID PRN 03/24/17 [ History] Cephalexin [Keflex] 500 mg PO Q12HR #10 cap 03/25/17 [Rx] Follow up Appointment(s)/Referral(s): Medina Snow DO [Primary Care Provider] - 1 Week Activity/Diet/Wound Care/Special Instructions: Diet: cardiac, renal, diabetic Activity: as tolerated Check BMP in [address] Snow's office Discharge Disposition: HOME SELF-CARE
[2017-03-25 14:20] VITALS: BP 97/52; PULSE 65; TEMP 97.1
[2017-03-25] MEDS ORDERED: ATORVASTATIN 10 MG TAB PO SCH (21:00)
== END 2017-03-25 15:43 | disposition home or self-care (01) ==
LOC: EC 15:25 → INTOOBSV 21:27 → 6SEL 21:27
PROVIDERS: ADMIT Internal Medicine; ATTEND Internal Medicine
DX: E87.5 Hyperkalemia (principal); N39.0 Urinary tract infection, site not specified; G89.29 Other chronic pain; M54.9 Dorsalgia, unspecified; E11.22 Type 2 diabetes mellitus with diabetic chronic kidney disease; I12.9 Hypertensive chronic kidney disease with stage 1 through stage 4 chronic kidney disease, or unspecified chronic kidney disease; E87.1 Hypo-osmolality and hyponatremia; F41.9 Anxiety disorder, unspecified; E78.5 Hyperlipidemia, unspecified; N18.3 Chronic kidney disease, stage 3 (moderate); F32.9 Major depressive disorder, single episode, unspecified; Z79.899 Other long term (current) drug therapy; Z88.6 Allergy status to analgesic agent; Z88.8 Allergy status to other drugs, medicaments and biological substances; Z87.891 Personal history of nicotine dependence; Z79.84 Long term (current) use of oral hypoglycemic drugs
CPT/HCPCS: 96366; 96367; 96361; 96365; 99291; 36415; 93005; 85379; 80053 ×2; 83036; 82550; 82553; 83605; 83735 ×2; 84100 ×2; 84484; 85025 ×2; 85610; 85730; 81001; 87086; 87077; 87186; 71020; 71275; G0378 ×2; Q9967; J0696; J0610

== ENCOUNTER → 2017-10-11 | Outpatient (CLI) | payer MEDICARE | END | disposition home or self-care (01) | LOC: LABWHC1 16:35 | PROVIDERS: ATTEND Internal Medicine Infectious Disease | DX: R78.81 Bacteremia (principal) | CPT/HCPCS: 36415; 87040 ==

== ENCOUNTER 2017-11-30 05:06 | Emergency (ER) | payer MEDICARE ==
[2017-11-30 05:14] LABS: Glucose,Whole Blood 99 mg/dL (75-99)
--- NOTE | 2017-11-30 05:20 | ED ---
General Adult HPI - General Chief complaint: Nausea/Vomiting/Diarrhea Stated complaint: NVD Time Seen by Provider: 11/30/17 05:09 Source: patient, EMS, RN notes reviewed, old records reviewed Mode of arrival: EMS Limitations: no limitations - History of Present Illness Initial comments: 72-year-old female presents with two-week history of generalized weakness and nausea vomiting. Patient states she's had decreased appetite. She's had several episodes of nausea and vomiting each day for the past 2 weeks. She is also reports some loose stools and diarrhea. No blood in her vomiting or diarrhea. She does states she's had flulike symptoms with cough and rhinorrhea. She's had subjective fever and chills. Cough is nonproductive. No significant dyspnea. No central chest pain. Patient denies rash. Denies dysuria. - Related Data Home Medications Medication Instructions Recorded Confirmed Lisinopril-Hctz 20-12.5 mg 1 tab PO DAILY 10/21/14 09/12/17 [Zestoretic 20-12.5] clonazePAM [Clonazepam] 0.5 mg PO DAILY 10/21/14 09/12/17 Ergocalciferol [Vitamin D2 50,000 unit PO TU 08/09/15 09/12/17 (DRISDOL)] Ferrous Sulfate [Iron (65 MG 325 mg PO HS 06/22/16 09/12/17 Elemental)] Folic Acid 1 mg PO HS 06/22/16 09/12/17 glipiZIDE [Glucotrol] 10 mg PO BID 03/24/17 09/12/17 oxyCODONE HCL/ACETAMINOPHEN 1 tab PO TID PRN 03/24/17 09/12/17 [Percocet 7.5-325 mg] Previous Rx's Medication Instructions Recorded Cefuroxime Axetil [Ceftin] 500 mg PO BID #24 tab 09/17/17 Allergies Allergy/AdvReac Type Severity Reaction Status Date / Time glimepiride Allergy Mild Unknown Verified 09/14/17 10:45 ibuprofen Allergy Unknown Verified 09/14/17 10:45 metformin Allergy Unknown Verified 09/14/17 10:45 tizanidine AdvReac LOW BLOOD Verified 09/14/17 10:45 PRESSURE/SLEEPY Review of Systems ROS Statement: Those systems with pertinent positive or pertinent negative responses have been documented in the HPI. ROS Other: All systems not noted in ROS Statement are negative. Past Medical History Past Medical History: Diabetes Mellitus, Fibromyalgia, Hyperlipidemia, Hypertension, Osteoarthritis (OA), Renal Disease Additional Past Medical History / Comment(s): NIDDM type II, neuropathy in hands and feet bilaterally, chronic low back and leg pain. History of Any Multi-Drug Resistant Organisms: None Reported Past Surgical History: Cholecystectomy Additional Past Surgical History / Comment(s): D & C. right hand tendon surgery , low back injections. Past Anesthesia/Blood Transfusion Reactions: No Reported Reaction Past Psychological History: Anxiety, Depression Smoking Status: Former smoker - Past Family History Father Family Medical History: Cancer Additional Family Medical History / Comment(s): Pt states her family was estranged from her. She knows her father had cancer but not what type. Mother History Unknown: Yes General Exam Limitations: no limitations General appearance: alert, in no apparent distress Head exam: Present: atraumatic, normocephalic Eye exam: Present: normal appearance, PERRL, EOMI ENT exam: Present: normal exam Neck exam: Present: normal inspection, full ROM. Absent: tenderness, meningismus Respiratory exam: Present: normal lung sounds bilaterally. Absent: respiratory distress, wheezes Cardiovascular Exam: Present: regular rate, normal rhythm GI/Abdominal exam: Present: soft. Absent: distended, tenderness External exam: Present: normal external exam. Absent: erythema, swelling Extremities exam: Present: normal inspection, normal capillary refill, pedal edema (trace). Absent: full ROM, tenderness Neurological exam: Present: alert, oriented X3, CN II-XII intact. Absent: motor sensory deficit Psychiatric exam: Present: normal affect, normal mood Skin exam: Present: warm, dry, intact. Absent: cyanosis, diaphoretic Course Vital Signs 11/30/17 05:07 Temperature 97.5 F L Pulse Rate 71 Respiratory 18 Rate Blood Pressure 126/61 O2 Sat by Pulse 97 Oximetry EKG Findings - EKG Comments: EKG Findings:: EKG, normal sinus rhythm, ventricular rate 63, OH interval 136, QRS duration 88, QTC 411 Medical Decision Making - Medical Decision Making 72-year-old female presenting with 2 weeks of flulike symptoms. Patient has normal vital signs, she is well-appearing on exam. Lungs clear. Chest x-rays obtained, negative for pneumonia, does show reactive airway consistent with bronchitis. Influenza is positive for type B. White blood cell count normal, hemoglobin stable, electrolytes within normal limits, there is mild elevation in creatinine from previous although patient does have chronic kidney disease. She is given 1 L normal saline, as well as 10 mg of Decadron. She is well outside the window for Tamiflu. She will be discharged home with symptomatic treatment. She will return with worsening or changing symptoms. - Lab Data Result diagrams: 11/30/17 05:27 11/30/17 05:27 Lab Results 11/30/17 11/30/17 11/30/17 Range/Units 05:10 05:25 05:27 WBC (3.8-10.6) k/uL RBC (3.80-5.40) m/uL Hgb (11.4-16.0) gm/dL Hct (34.0-46.0) % MCV (80.0-100.0) fL MCH (25.0-35.0) pg MCHC (31.0-37.0) g/dL RDW (11.5-15.5) % Plt Count (150-450) k/uL Neutrophils % % Lymphocytes % % Monocytes % % Eosinophils % % Basophils % % Neutrophils # (1.3-7.7) k/uL Lymphocytes # (1.0-4.8) k/uL Monocytes # (0-1.0) k/uL Eosinophils # (0-0.7) k/uL Basophils # (0-0.2) k/uL PT (9.0-12.0) sec INR (<1.2) APTT (22.0-30.0) sec Sodium (137-145) mmol/L Potassium (3.5-5.1) mmol/L Chloride (98-107) mmol/L Carbon Dioxide (22-30) mmol/L Anion Gap mmol/L BUN (7-17) mg/dL Creatinine (0.52-1.04) mg/dL Est GFR (CKD-EPI)AfAm (>60 ml/min/1.73 sqM) Est GFR (CKD-EPI)NonAf (>60 ml/min/1.73 sqM) Glucose (74-99) mg/dL POC Glucose (mg/dL) 99 (75-99) mg/dL POC Glu [employer] Supervisor Sara Muhammad Plasma Lactic Acid Alex (0.7-2.0) mmol/L Calcium (8.4-10.2) mg/dL Magnesium (1.6-2.3) mg/dL Total Bilirubin (0.2-1.3) mg/dL AST (14-36) U/L ALT (9-52) U/L Alkaline Phosphatase (38-126) U/L Total Creatine Kinase 88 (30-135) U/L CK-MB (CK-2) 1.0 (0.0-2.4) ng/mL CK-MB (CK-2) Rel Index 1.1 Troponin I <0.012 (0.000-0.034) ng/mL Total Protein (6.3-8.2) g/dL Albumin (3.5-5.0) g/dL Influenza Type A RNA Not Detected (Not Detectd) Influenza Type B (PCR) Detected H (Not Detectd) 11/30/17 11/30/17 11/30/17 Range/Units 05:27 05:27 05:27 WBC 5.5 (3.8-10.6) k/uL RBC 3.68 L (3.80-5.40) m/uL Hgb 11.7 (11.4-16.0) gm/dL Hct 34.4 (34.0-46.0) % MCV 93.4 (80.0-100.0) fL MCH 31.8 (25.0-35.0) pg MCHC 34.0 (31.0-37.0) g/dL RDW 13.9 (11.5-15.5) % Plt Count 205 (150-450) k/uL Neutrophils % 76 % Lymphocytes % 17 % Monocytes % 5 % Eosinophils % 1 % Basophils % 0 % Neutrophils # 4.1 (1.3-7.7) k/uL Lymphocytes # 0.9 L (1.0-4.8) k/uL Monocytes # 0.3 (0-1.0) k/uL Eosinophils # 0.0 (0-0.7) k/uL Basophils # 0.0 (0-0.2) k/uL PT 10.0 (9.0-12.0) sec INR 1.0 (<1.2) APTT 23.1 (22.0-30.0) sec Sodium 136 L (137-145) mmol/L Potassium 4.4 (3.5-5.1) mmol/L Chloride 101 (98-107) mmol/L Carbon Dioxide 19 L (22-30) mmol/L Anion Gap 16 mmol/L BUN 30 H (7-17) mg/dL Creatinine 1.40 H (0.52-1.04) mg/dL Est GFR (CKD-EPI)AfAm 44 (>60 ml/min/1.73 sqM) Est GFR (CKD-EPI)NonAf 38 (>60 ml/min/1.73 sqM) Glucose 96 (74-99) mg/dL POC Glucose (mg/dL) (75-99) mg/dL POC Glu [employer] Supervisor ID Plasma Lactic Acid Alex (0.7-2.0) mmol/L Calcium 8.8 (8.4-10.2) mg/dL Magnesium 1.9 (1.6-2.3) mg/dL Total Bilirubin 0.6 (0.2-1.3) mg/dL AST 47 H (14-36) U/L ALT 27 (9-52) U/L Alkaline Phosphatase 64 (38-126) U/L Total Creatine Kinase (30-135) U/L CK-MB (CK-2) (0.0-2.4) ng/mL CK-MB (CK-2) Rel Index Troponin I (0.000-0.034) ng/mL Total Protein 7.1 (6.3-8.2) g/dL Albumin 4.1 (3.5-5.0) g/dL Influenza Type A RNA (Not Detectd) Influenza Type B (PCR) (Not Detectd) 11/30/17 Range/Units 05:27 WBC (3.8-10.6) k/uL RBC (3.80-5.40) m/uL Hgb (11.4-16.0) gm/dL Hct (34.0-46.0) % MCV (80.0-100.0) fL MCH (25.0-35.0) pg MCHC (31.0-37.0) g/dL RDW (11.5-15.5) % Plt Count (150-450) k/uL Neutrophils % % Lymphocytes % % Monocytes % % Eosinophils % % Basophils % % Neutrophils # (1.3-7.7) k/uL Lymphocytes # (1.0-4.8) k/uL Monocytes # (0-1.0) k/uL Eosinophils # (0-0.7) k/uL Basophils # (0-0.2) k/uL PT (9.0-12.0) sec INR (<1.2) APTT (22.0-30.0) sec Sodium (137-145) mmol/L Potassium (3.5-5.1) mmol/L Chloride (98-107) mmol/L Carbon Dioxide (22-30) mmol/L Anion Gap mmol/L BUN (7-17) mg/dL Creatinine (0.52-1.04) mg/dL Est GFR (CKD-EPI)AfAm (>60 ml/min/1.73 sqM) Est GFR (CKD-EPI)NonAf (>60 ml/min/1.73 sqM) Glucose (74-99) mg/dL POC Glucose (mg/dL) (75-99) mg/dL POC Glu [employer] Supervisor ID Plasma Lactic Acid Alex 1.1 (0.7-2.0) mmol/L Calcium (8.4-10.2) mg/dL Magnesium (1.6-2.3) mg/dL Total Bilirubin (0.2-1.3) mg/dL AST (14-36) U/L ALT (9-52) U/L Alkaline Phosphatase (38-126) U/L Total Creatine Kinase (30-135) U/L CK-MB (CK-2) (0.0-2.4) ng/mL CK-MB (CK-2) Rel Index Troponin I (0.000-0.034) ng/mL Total Protein (6.3-8.2) g/dL Albumin (3.5-5.0) g/dL Influenza Type A RNA (Not Detectd) Influenza Type B (PCR) (Not Detectd) Disposition Clinical Impression: Influenza B, Dehydration Disposition: HOME SELF-CARE Condition: Fair Instructions: Influenza (ED) Is patient prescribed a controlled substance at d/c from ED?: No Referrals: Medina Snow DO [Primary Care Provider] - 1-2 days Time of Disposition: 06:36
[2017-11-30] MEDS: ACETAMINOPHEN TAB 325 MG TAB PO STA ×2 (05:39→05:53)
[2017-11-30] MEDS ORDERED: oxyCODONE-APAP 7.5-325MG 1 EACH TAB PO STA (05:42)
[2017-11-30 05:48] LABS: Basophils % (A) 0 %; Eosinophils % (A) 1 %; HCT 34.4 % (34.0-46.0); HGB 11.7 gm/dL (11.4-16.0); Lymphocytes # (A) 0.9 k/uL (1.0-4.8); Lymphocytes % (A) 17 %; MCH 31.8 pg (25.0-35.0); MCV 93.4 fL (80.0-100.0); Monocytes # (A) 0.3 k/uL (0-1.0); Monocytes % (A) 5 %; Neutrophils # (A) 4.1 k/uL (1.3-7.7); Neutrophils % (A) 76 %; Platelet Count 205 k/uL (150-450); RBC 3.68 m/uL (3.80-5.40); RDW 13.9 % (11.5-15.5); WBC 5.5 k/uL (3.8-10.6)
[2017-11-30 05:51] LABS: Albumin 4.1 g/dL (3.5-5.0); Calcium 8.8 mg/dL (8.4-10.2); Partial Thromboplastin Time 23.1 sec (22.0-30.0); Total Bilirubin 0.6 mg/dL (0.2-1.3); Total Protein 7.1 g/dL (6.3-8.2)
[2017-11-30] MEDS ORDERED: SODIUM CHLORIDE 0.9% 500 ML IV ONE ×2 (05:57→06:33)
[2017-11-30 06:03] LABS: Creatine Kinase 88 U/L (30-135)
[2017-11-30 06:16] LABS: Troponin I <0.012 ng/mL (0.000-0.034)
[2017-11-30 06:17] LABS: Magnesium 1.9 mg/dL (1.6-2.3); Potassium 4.4 mmol/L (3.5-5.1)
--- NOTE | 2017-11-30 06:25 | XR ---
PROCEDURE: FILM CXR 2 VIEWS HISTORY: 72-year-old female with weakness. COMPARISON: Chest radiograph 09/13/2017 TECHNIQUE: Frontal and lateral views of the chest were obtained. FINDINGS: Evaluation is limited by positioning. Cardiomediastinal silhouette is stable. Mild peribronchial cuffing, may be due to bronchitis. No evidence of focal consolidation. Degenerative changes in the spine. The bones are osteopenic. IMPRESSION: Mild peribronchial cuffing, may be due to bronchitis. No evidence of focal consolidation.
[2017-11-30] MEDS ORDERED: DEXAMETHASONE SOD PHOSPHATE 10 MG/ML 1 ML VIAL IV STA (06:33)
[2017-11-30 07:35] VITALS: BP 141/69; PULSE 60; RESP 18; TEMP 98
== END 2017-11-30 07:35 | disposition home or self-care (01) ==
LOC: EC 05:06
DX: J10.1 Influenza due to other identified influenza virus with other respiratory manifestations (principal); E86.0 Dehydration; I12.9 Hypertensive chronic kidney disease with stage 1 through stage 4 chronic kidney disease, or unspecified chronic kidney disease; N18.9 Chronic kidney disease, unspecified; E11.22 Type 2 diabetes mellitus with diabetic chronic kidney disease; E11.40 Type 2 diabetes mellitus with diabetic neuropathy, unspecified; E78.5 Hyperlipidemia, unspecified; M19.90 Unspecified osteoarthritis, unspecified site; F32.9 Major depressive disorder, single episode, unspecified; F41.9 Anxiety disorder, unspecified; Z90.49 Acquired absence of other specified parts of digestive tract; Z88.6 Allergy status to analgesic agent; Z88.8 Allergy status to other drugs, medicaments and biological substances; Z79.84 Long term (current) use of oral hypoglycemic drugs; Z79.899 Other long term (current) drug therapy; Z87.891 Personal history of nicotine dependence
CPT/HCPCS: 99285; 96374; 96361; 36415; 93005; 80053; 82550; 82553; 83605; 83735; 84484; 85025; 85610; 85730; 87502; 71046; J1100

== ENCOUNTER 2018-11-06 21:16 | Inpatient (IN) | payer MEDICARE ==
[2018-11-06] MEDS ORDERED: ACETAMINOPHEN TAB 325 MG TAB PO STA (21:33)
[2018-11-06] MEDS ORDERED: SODIUM CHLORIDE 0.9% 1,000 ML IV STA (21:33)
[2018-11-06] MEDS ORDERED: SODIUM CHLORIDE 0.9% 1,000 ML IV ONE (22:03)
--- NOTE | 2018-11-06 22:14 | ED ---
General Adult HPI - General Chief complaint: Nausea/Vomiting/Diarrhea Stated complaint: Weakness Time Seen by Provider: 11/06/18 21:19 Source: patient, EMS, RN notes reviewed, old records reviewed Mode of arrival: EMS Limitations: no limitations - History of Present Illness Initial comments: 73-year-old female presenting for evaluation of generalized weakness, nausea vomiting. Patient has had several episodes of vomiting throughout the day today. This was nonbloody nonbilious. Denies any diarrhea. She states she has been constipated. Denies significant abdominal pain. Denies chest pain or dyspnea. She's had a mild cough. Denies URI symptoms. Denies dysuria or hematuria. - Related Data Home Medications Medication Instructions Recorded Confirmed Lisinopril-Hctz 20-12.5 mg 1 tab PO DAILY 10/21/14 11/06/18 [Zestoretic 20-12.5] Ergocalciferol [Vitamin D2 50,000 unit PO TU 08/09/15 11/06/18 (DRISDOL)] Ferrous Sulfate [Iron (65 MG 325 mg PO HS 06/22/16 11/06/18 Elemental)] oxyCODONE HCL/ACETAMINOPHEN 1 tab PO TID PRN 03/24/17 11/06/18 [Percocet 7.5-325 mg] DULoxetine HCL [Cymbalta] See Taper PO DIRECTED 11/06/18 11/06/18 glipiZIDE XL [Glucotrol XL] 5 mg PO DAILY 11/06/18 11/06/18 Allergies Allergy/AdvReac Type Severity Reaction Status Date / Time glimepiride Allergy Mild Unknown Verified 09/14/17 10:45 ibuprofen Allergy Unknown Verified 09/14/17 10:45 metformin Allergy Unknown Verified 09/14/17 10:45 Vhimfwh-Ztj-Gyn Reductase Allergy Unknown Verified 11/06/18 21:59 Inhibitor Sulfa (Sulfonamide Allergy Unknown Verified 11/06/18 21:59 Antibiotics) tizanidine AdvReac LOW BLOOD Verified 09/14/17 10:45 PRESSURE/SLEEPY Review of Systems ROS Statement: Those systems with pertinent positive or pertinent negative responses have been documented in the HPI. ROS Other: All systems not noted in ROS Statement are negative. Past Medical History Past Medical History: Diabetes Mellitus, Fibromyalgia, Hyperlipidemia, Hypertension, Osteoarthritis (OA), Renal Disease Additional Past Medical History / Comment(s): NIDDM type II, neuropathy in hands and feet bilaterally, chronic low back and leg pain. History of Any Multi-Drug Resistant Organisms: None Reported Past Surgical History: Cholecystectomy Additional Past Surgical History / Comment(s): D & C. right hand tendon surgery, low back injections. Past Anesthesia/Blood Transfusion Reactions: No Reported Reaction Past Psychological History: Anxiety, Depression Smoking Status: Former smoker Past Alcohol Use History: None Reported Past Drug Use History: None Reported - Past Family History Father Family Medical History: Cancer Additional Family Medical History / Comment(s): Pt states her family was estranged from her. She knows her father had cancer but not what type. Mother History Unknown: Yes General Exam Limitations: no limitations General appearance: alert, in no apparent distress Head exam: Present: atraumatic, normocephalic Eye exam: Present: normal appearance. Absent: PERRL, EOMI ENT exam: Present: mucous membranes dry Neck exam: Present: normal inspection. Absent: tenderness, meningismus Respiratory exam: Present: normal lung sounds bilaterally. Absent: respiratory distress, wheezes Cardiovascular Exam: Present: regular rate, normal rhythm GI/Abdominal exam: Present: soft. Absent: distended, tenderness, guarding, rebound Extremities exam: Present: normal inspection, normal capillary refill. Absent: pedal edema Neurological exam: Present: alert, oriented X3, CN II-XII intact. Absent: motor sensory deficit Psychiatric exam: Present: normal affect, normal mood Skin exam: Present: warm, dry, intact. Absent: cyanosis, diaphoretic Course Vital Signs 11/06/18 21:27 Temperature 100.6 F H Pulse Rate 79 Respiratory 22 Rate Blood Pressure 114/53 O2 Sat by Pulse 98 Oximetry EKG Findings - EKG Comments: EKG Findings:: EKG: Normal sinus rhythm, low voltage QRS, rate of 82, [place] interval 162, QRS duration 86, QTC 411 Procedures - Sepsis Sepsis Focused Exam #1 Time Sepsis Criteria Met: 00:50 Sepsis Focused Exam Date: 11/07/18 Sepsis Focused Exam Time: 00:51 Sepsis Focused Exam Complete: Yes Vital Signs & RN Notes Reviewed: Yes Capillary Refill: < 2 Seconds: Fingers, Toes Peripheral Pulses: Normal: Radial (R), Radial (L) Skin Color: Flushed Respiratory Exam: normal lung sounds Cardiovascular Exam: regular rate, normal rhythm Medical Decision Making - Medical Decision Making 73-year-old female presenting with nausea vomiting, fever chills, lightheadedness. Patient is febrile in the emergency department. Her vital signs are stable. Chest x-ray negative for focal pneumonia in no acute findings. Patient has elevated white blood cell count 17.1, mild lactic acidosis of 2.8. Creatinine 1.43 which is baseline for this patient. Patient has previous urinary tract infection with gram-negative bacteremia. This was E. coli sensitive to cephalosporins. Urinalysis nitrate positive, 58 white cells, many bacteria. Urine culture pen andrey. - Lab Data Result diagrams: 11/06/18 23:37 11/06/18 23:37 Lab Results 11/06/18 11/06/18 11/06/18 Range/Units 23:08 23:37 23:37 WBC 17.1 H (3.8-10.6) k/uL RBC 3.47 L (3.80-5.40) m/uL Hgb 11.4 (11.4-16.0) gm/dL Hct 34.9 (34.0-46.0) % MCV 100.6 H (80.0-100.0) fL MCH 33.0 (25.0-35.0) pg MCHC 32.8 (31.0-37.0) g/dL RDW 13.7 (11.5-15.5) % Plt Count 227 (150-450) k/uL Neutrophils % 90 % Lymphocytes % 5 % Monocytes % 4 % Eosinophils % 0 % Basophils % 0 % Neutrophils # 15.4 H (1.3-7.7) k/uL Lymphocytes # 0.8 L (1.0-4.8) k/uL Monocytes # 0.7 (0-1.0) k/uL Eosinophils # 0.0 (0-0.7) k/uL Basophils # 0.0 (0-0.2) k/uL Macrocytosis Slight Sodium 134 L (137-145) mmol/L Potassium 4.4 (3.5-5.1) mmol/L Chloride 98 (98-107) mmol/L Carbon Dioxide 24 (22-30) mmol/L Anion Gap 12 mmol/L BUN 31 H (7-17) mg/dL Creatinine 1.43 H (0.52-1.04) mg/dL Est GFR (CKD-EPI)AfAm 42 (>60 ml/min/1.73 sqM) Est GFR (CKD-EPI)NonAf 37 (>60 ml/min/1.73 sqM) Glucose 120 H (74-99) mg/dL Plasma Lactic Acid Alex (0.7-2.0) mmol/L Calcium 9.1 (8.4-10.2) mg/dL Total Bilirubin 1.0 (0.2-1.3) mg/dL AST 34 (14-36) U/L ALT 28 (9-52) U/L Alkaline Phosphatase 87 (38-126) U/L Total Protein 6.6 (6.3-8.2) g/dL Albumin 3.7 (3.5-5.0) g/dL Urine Color Urine Appearance (Clear) Urine pH (5.0-8.0) Ur Specific [place] (1.001-1.035) Urine Protein (Negative) Urine Glucose (UA) (Negative) Urine Ketones (Negative) Urine Blood (Negative) Urine Nitrite (Negative) Urine Bilirubin (Negative) Urine Urobilinogen (<2.0) mg/dL Ur Leukocyte Esterase (Negative) Urine RBC (0-5) /hpf Urine WBC (0-5) /hpf Ur Squamous Epith Cells (0-4) /hpf Urine Bacteria (None) /hpf Hyaline Casts (0-2) /lpf Urine Mucus (None) /hpf Influenza Type A RNA Not Detected (Not Detectd) Influenza Type B (PCR) Not Detected (Not Detectd) 11/06/18 11/07/18 Range/Units 23:37 00:10 WBC (3.8-10.6) k/uL RBC (3.80-5.40) m/uL Hgb (11.4-16.0) gm/dL Hct (34.0-46.0) % MCV (80.0-100.0) fL MCH (25.0-35.0) pg MCHC (31.0-37.0) g/dL RDW (11.5-15.5) % Plt Count (150-450) k/uL Neutrophils % % Lymphocytes % % Monocytes % % Eosinophils % % Basophils % % Neutrophils # (1.3-7.7) k/uL Lymphocytes # (1.0-4.8) k/uL Monocytes # (0-1.0) k/uL Eosinophils # (0-0.7) k/uL Basophils # (0-0.2) k/uL Macrocytosis Sodium (137-145) mmol/L Potassium (3.5-5.1) mmol/L Chloride (98-107) mmol/L Carbon Dioxide (22-30) mmol/L Anion Gap mmol/L BUN (7-17) mg/dL Creatinine (0.52-1.04) mg/dL Est GFR (CKD-EPI)AfAm (>60 ml/min/1.73 sqM) Est GFR (CKD-EPI)NonAf (>60 ml/min/1.73 sqM) Glucose (74-99) mg/dL Plasma Lactic Acid Alex 2.8 H* (0.7-2.0) mmol/L Calcium (8.4-10.2) mg/dL Total Bilirubin (0.2-1.3) mg/dL AST (14-36) U/L ALT (9-52) U/L Alkaline Phosphatase (38-126) U/L Total Protein (6.3-8.2) g/dL Albumin (3.5-5.0) g/dL Urine Color Yellow Urine Appearance Cloudy H (Clear) Urine pH 5.5 (5.0-8.0) Ur Specific [place] 1.019 (1.001-1.035) Urine Protein Trace H (Negative) Urine Glucose (UA) Negative (Negative) Urine Ketones Negative (Negative) Urine Blood Small H (Negative) Urine Nitrite Positive H (Negative) Urine Bilirubin Negative (Negative) Urine Urobilinogen <2.0 (<2.0) mg/dL Ur Leukocyte Esterase Large H (Negative) Urine RBC 4 (0-5) /hpf Urine WBC 59 H (0-5) /hpf Ur Squamous Epith Cells 1 (0-4) /hpf Urine Bacteria Many H (None) /hpf Hyaline Casts 6 H (0-2) /lpf Urine Mucus Occasional H (None) /hpf Influenza Type A RNA (Not Detectd) Influenza Type B (PCR) (Not Detectd) Disposition Clinical Impression: Dehydration, UTI (urinary tract infection), Sepsis Disposition: ADMITTED IP TO THIS HOSP Condition: Stable Is patient prescribed a controlled substance at d/c from ED?: No Referrals: Medina Snow DO [Primary Care Provider] - 1-2 days Time of Disposition: 00:50 Decision to Admit Reason: Admit from EC Decision Date: 11/07/18 Decision Time: 00:50
--- NOTE | 2018-11-06 23:18 | XR ---
EXAM: XR Chest, 2 Views CLINICAL HISTORY: fever TECHNIQUE: Frontal and lateral views of the chest. COMPARISON: 11-30-17 FINDINGS: Lungs: Unremarkable. No consolidation. Pleural space: Unremarkable. No pneumothorax. Heart: Unremarkable. No cardiomegaly. Mediastinum: Unremarkable. Bones/joints: Unremarkable for patient's age. IMPRESSION: No acute findings
--- NOTE | 2018-11-06 23:39 | XR ---
EXAM: XR Abdomen, 1 View CLINICAL History: abd pain, fever, no prior TECHNIQUE: Frontal supine view of the abdomen/pelvis. COMPARISON: No relevant prior studies available. FINDINGS: Gastrointestinal tract: Nonspecific bowel gas pattern. No dilation. Organs: Cholecystectomy clips. Bones/joints: Osteopenia. Moderate degenerative changes. IMPRESSION: No acute findings.
[2018-11-06 23:46] LABS: Basophils % (A) 0 %; Eosinophils % (A) 0 %; HCT 34.9 % (34.0-46.0); HGB 11.4 gm/dL (11.4-16.0); Lymphocytes # (A) 0.8 k/uL (1.0-4.8); Lymphocytes % (A) 5 %; MCHC 32.8 g/dL (31.0-37.0); MCV 100.6 fL (80.0-100.0); Macrocytosis Slight; Mean Platelet Volume 6.8; Monocytes # (A) 0.7 k/uL (0-1.0); Monocytes % (A) 4 %; Neutrophils # (A) 15.4 k/uL (1.3-7.7); Neutrophils % (A) 90 %; Platelet Count 227 k/uL (150-450); RBC 3.47 m/uL (3.80-5.40); RDW 13.7 % (11.5-15.5); WBC 17.1 k/uL (3.8-10.6)
[2018-11-06 23:54] LABS: Albumin 3.7 g/dL (3.5-5.0); Calcium 9.1 mg/dL (8.4-10.2); Potassium 4.4 mmol/L (3.5-5.1); Total Protein 6.6 g/dL (6.3-8.2)
[2018-11-07 00:44] LABS: Appearance,Urine Cloudy (Clear); Bacteria,Urine Many /hpf; Bilirubin,Urine Negative (Negative); Blood,Urine Small (Negative); Color,Urine Yellow; Glucose,Urine (UA) Negative (Negative); Hyaline Casts,Urine 6 /lpf (0-2); Ketones,Urine Negative (Negative); Leukocyte Esterase,Urine Large (Negative); Mucus,Urine Occasional /hpf; Nitrite,Urine Positive (Negative); PH, Urine 5.5 (5.0-8.0); Protein,Urine Trace (Negative); RBC,Urine 4 /hpf (0-5); Specific Gravity,Urine 1.019 (1.001-1.035); Squamous Epithelial Cell,Urine 1 /hpf (0-4); Urobilinogen,Urine <2.0 mg/dL (<2.0); WBC,Urine 59 /hpf (0-5)
[2018-11-07] MEDS ORDERED: NALOXONE 0.4 MG/ML 1 ML VIAL IV PRN (00:51)
[2018-11-07] MEDS ORDERED: ACETAMINOPHEN TAB 325 MG TAB PO PRN (00:51)
--- NOTE | 2018-11-07 02:14 | CT ---
EXAM: CT Head Without Intravenous Contrast CLINICAL HISTORY: ITS.REASON CT Reason: Pain TECHNIQUE: Axial computed tomography images of the head/brain without intravenous contrast. CTDI is 50 mGy and DLP is 1233 mGy-cm. This CT exam was performed using one or more of the following dose reduction techniques: automated exposure control, adjustment of the mA and/or kV according to patient size, and/or use of iterative reconstruction technique. COMPARISON: 09/13/17 CT head FINDINGS: Brain: No hemorrhage, large hypodensity, or mass effect. Chronic microvascular ischemic changes. Ventricles: No hydrocephalus. Mild cerebral volume loss. Bones/joints: Unremarkable. Soft tissues: Unremarkable. Sinuses: Unremarkable. Mastoid air cells: Clear. IMPRESSION: No acute hemorrhage, hydrocephalus, or mass effect.
[2018-11-07] MEDS: ONDANSETRON 4 MG/2 ML VIAL IVP PRN (02:39)
[2018-11-07] MEDS: MORPHINE SULFATE 4 MG/ML SYRINGE IV PRN (02:48)
[2018-11-07 03:27] VITALS: BMI 37.5
[2018-11-07] MEDS: SODIUM CHLORIDE 0.9% 1,000 ML IV SCH ×3 (03:34→17:19)
[2018-11-07 07:11] LABS: Glucose,Whole Blood 135 mg/dL (75-99)
[2018-11-07] MEDS ORDERED: LISINOPRIL-HCTZ 20-12.5 MG 1 EACH TAB PO SCH (09:00)
[2018-11-07] MEDS: oxyCODONE-APAP 7.5-325MG 1 EACH TAB PO PRN ×2 (09:30→20:21)
[2018-11-07 11:33] LABS: Basophils % (A) 0 %; Eosinophils # (A) 0.1 k/uL (0-0.7); Eosinophils % (A) 0 %; HCT 33.4 % (34.0-46.0); HGB 10.7 gm/dL (11.4-16.0); Lymphocytes # (A) 0.7 k/uL (1.0-4.8); Lymphocytes % (A) 4 %; MCH 32.1 pg (25.0-35.0); MCV 100.3 fL (80.0-100.0); Macrocytosis Slight; Mean Platelet Volume 7.4; Monocytes # (A) 0.7 k/uL (0-1.0); Monocytes % (A) 4 %; Neutrophils # (A) 14.6 k/uL (1.3-7.7); Neutrophils % (A) 90 %; Platelet Count 235 k/uL (150-450); RBC 3.33 m/uL (3.80-5.40); RDW 13.8 % (11.5-15.5); WBC 16.2 k/uL (3.8-10.6)
[2018-11-07 11:46] LABS: Albumin 3.5 g/dL (3.5-5.0); Calcium 8.7 mg/dL (8.4-10.2); Total Bilirubin 1.5 mg/dL (0.2-1.3); Total Protein 6.5 g/dL (6.3-8.2)
[2018-11-07 11:49] LABS: Potassium 5.2 mmol/L (3.5-5.1)
[2018-11-07] MEDS ORDERED: SODIUM POLYSTYRENE SULFONATE 15 GM/60 ML BOTTLE PO STA (12:00)
[2018-11-07 12:02] LABS: Glucose,Whole Blood 113 mg/dL (75-99)
--- NOTE | 2018-11-07 12:02 | P.HPIM ---
History of Present Illness H&P Date: 11/07/18 This is a 73-year-old female patient of Dr. Snow. Patient presented to the hospital with complaints of generalized weakness, nausea and vomiting. Patient reports that she has been feeling increasingly nauseous with vomiting throughout the day yesterday. Patient denies any diarrhea. Patient denies any fevers. She denies any recent upper respiratory infections. Patient does have past medical history of diabetes mellitus, fibromyalgia, hyperlipidemia, hypertension, osteoarthritis, renal disease, cholecystectomy, anxiety and depression. Chest x-ray completed showing no acute findings. KUB x-ray completed showing no acute findings. Head CT completed showing no acute hemorrhage, hydrocephalus or mass effect. EKG completed showing normal sinus rhythm low voltage QRS borderline EKG. UA positive for large amount of leukocyte Estrace. Patient started on Rocephin and urine culture and blood culture ordered. Patient's white blood cell elevated at 17.1 and lactic acid 2.8. Patient did receive fluid emergency department. Currently normal saline at 125. This time patient is resting in bed. At this time patient is resting comfortably in bed. Still complaining of overall generalized weakness. Patient denies chest pain or shortness breath. Patient is still complaining of some nausea. Will order amylase and lipase levels. Patient denies any diarrhea or constipation. Review of Systems Please refer to HPI otherwise unremarkable Past Medical History Past Medical History: Diabetes Mellitus, Fibromyalgia, Hyperlipidemia, Hypertension, Osteoarthritis (OA), Renal Disease Additional Past Medical History / Comment(s): NIDDM type II, neuropathy in hands and feet bilaterally, chronic low back and leg pain. History of Any Multi-Drug Resistant Organisms: None Reported Past Surgical History: Cholecystectomy Additional Past Surgical History / Comment(s): D & C, right hand tendon surgery, low back injections, pain procedures. Past Anesthesia/Blood Transfusion Reactions: No Reported Reaction Past Psychological History: Anxiety, Depression Additional Psychological History / Comment(s): Pt. resides alone. She ambulates with a walker. She does not drive, she gets to appts by friends or bus. Smoking Status: Former smoker Past Alcohol Use History: None Reported Additional Past Alcohol Use History / Comment(s): Pt. started smoking as a teen and quit in 1987. Past Drug Use History: None Reported - Past Family History Father Family Medical History: Cancer Additional Family Medical History / Comment(s): Pt states her family was estranged from her. She knows her father had cancer but not what type. Mother History Unknown: Yes Medications and Allergies Home Medications Medication Instructions Recorded Confirmed Type Lisinopril-Hctz 20-12.5 mg 1 tab PO DAILY 10/21/14 11/06/18 History [Zestoretic 20-12.5] Ergocalciferol [Vitamin D2 50,000 unit PO TU 08/09/15 11/06/18 History (DRISDOL)] Ferrous Sulfate [Iron (65 MG 325 mg PO HS 06/22/16 11/06/18 History Elemental)] oxyCODONE HCL/ACETAMINOPHEN 1 tab PO TID PRN 03/24/17 11/06/18 History [Percocet 7.5-325 mg] DULoxetine HCL [Cymbalta] See Taper PO DIRECTED 11/06/18 11/07/18 History glipiZIDE XL [Glucotrol XL] 5 mg PO DAILY 11/06/18 11/06/18 History Allergies Allergy/AdvReac Type Severity Reaction Status Date / Time glimepiride Allergy Mild Unknown Verified 09/14/17 10:45 ibuprofen Allergy Unknown Verified 09/14/17 10:45 metformin Allergy Unknown Verified 09/14/17 10:45 Elxdeaj-Vym-Jys Reductase Allergy Unknown Verified 11/06/18 21:59 Inhibitor Sulfa (Sulfonamide Allergy Unknown Verified 11/06/18 21:59 Antibiotics) tizanidine AdvReac LOW BLOOD Verified 09/14/17 10:45 PRESSURE/SLEEPY Physical Exam Vitals: Vital Signs Temp Pulse Pulse Resp BP BP Pulse Ox 11/07/18 05:10 97.7 F 81 20 126/70 95 11/07/18 03:24 98 F 83 20 115/58 98 11/07/18 02:40 100.7 F H 86 20 96/43 99 11/07/18 02:17 124/74 11/07/18 01:44 19 11/07/18 01:26 97.9 F 73 18 94/53 99 11/06/18 21:27 100.6 F H 79 22 114/53 98 Intake and Output 11/06/18 11/07/18 11/07/18 22:59 06:59 14:59 Intake Total 100 Balance 100 Intake: Oral 100 Other: Voiding Method Toilet Toilet # Voids 0 Weight 115.666 kg Head normocephalic Neck supple Lungs clear to auscultation bilaterally no wheezing or crackles Heart regular rate and rhythm S1-S2, no rub or gallop Abdomen is soft nontender nondistended positive bowel sounds no hepatosplenomegaly Extremities +1 bilateral lower extremity edema Neuro alert and orientated to 3 Results CBC & Chem 7: 11/07/18 10:57 11/06/18 23:37 Labs: Abnormal Lab Results - Last 24 Hours (Table) 11/06/18 11/06/18 11/06/18 Range/Units 23:37 23:37 23:37 WBC 17.1 H (3.8-10.6) k/uL RBC 3.47 L (3.80-5.40) m/uL Hgb (11.4-16.0) gm/dL Hct (34.0-46.0) % MCV 100.6 H (80.0-100.0) fL Neutrophils # 15.4 H (1.3-7.7) k/uL Lymphocytes # 0.8 L (1.0-4.8) k/uL Sodium 134 L (137-145) mmol/L BUN 31 H (7-17) mg/dL Creatinine 1.43 H (0.52-1.04) mg/dL Glucose 120 H (74-99) mg/dL POC Glucose (mg/dL) (75-99) mg/dL Plasma Lactic Acid Alex 2.8 H* (0.7-2.0) mmol/L Urine Appearance (Clear) Urine Protein (Negative) Urine Blood (Negative) Urine Nitrite (Negative) Ur Leukocyte Esterase (Negative) Urine WBC (0-5) /hpf Urine Bacteria (None) /hpf Hyaline Casts (0-2) /lpf Urine Mucus (None) /hpf 11/07/18 11/07/18 11/07/18 Range/Units 00:10 04:00 07:08 WBC (3.8-10.6) k/uL RBC (3.80-5.40) m/uL Hgb (11.4-16.0) gm/dL Hct (34.0-46.0) % MCV (80.0-100.0) fL Neutrophils # (1.3-7.7) k/uL Lymphocytes # (1.0-4.8) k/uL Sodium (137-145) mmol/L BUN (7-17) mg/dL Creatinine (0.52-1.04) mg/dL Glucose (74-99) mg/dL POC Glucose (mg/dL) 135 H (75-99) mg/dL Plasma Lactic Acid Alex 2.3 H* (0.7-2.0) mmol/L Urine Appearance Cloudy H (Clear) Urine Protein Trace H (Negative) Urine Blood Small H (Negative) Urine Nitrite Positive H (Negative) Ur Leukocyte Esterase Large H (Negative) Urine WBC 59 H (0-5) /hpf Urine Bacteria Many H (None) /hpf Hyaline Casts 6 H (0-2) /lpf Urine Mucus Occasional H (None) /hpf 11/07/18 Range/Units 10:57 WBC 16.2 H (3.8-10.6) k/uL RBC 3.33 L (3.80-5.40) m/uL Hgb 10.7 L (11.4-16.0) gm/dL Hct 33.4 L (34.0-46.0) % MCV 100.3 H (80.0-100.0) fL Neutrophils # 14.6 H (1.3-7.7) k/uL Lymphocytes # 0.7 L (1.0-4.8) k/uL Sodium (137-145) mmol/L BUN (7-17) mg/dL Creatinine (0.52-1.04) mg/dL Glucose (74-99) mg/dL POC Glucose (mg/dL) (75-99) mg/dL Plasma Lactic Acid Alex (0.7-2.0) mmol/L Urine Appearance (Clear) Urine Protein (Negative) Urine Blood (Negative) Urine Nitrite (Negative) Ur Leukocyte Esterase (Negative) Urine WBC (0-5) /hpf Urine Bacteria (None) /hpf Hyaline Casts (0-2) /lpf Urine Mucus (None) /hpf Microbiology - Last 24 Hours (Table) 11/07/18 00:10 Urine Culture - Preliminary Urine,Clean Catch Thrombosis Risk Factor Assmnt - Choose All That Apply Any of the Below Risk Factors Present?: Yes Each Factor Represents 1 point: Obesity (BMI >25) Other Risk Factors: Yes Each Risk Factor Represents 2 Points: Age 61-74 years Other congenital or acquired thrombophilia - If yes, enter type in comment: No Thrombosis Risk Factor Assessment Total Risk Factor Score: 3 Thrombosis Risk Factor Assessment Level: Moderate Risk Assessment and Plan Assessment: 1. Urinary tract infection with sepsis. Lactic acid elevated at 2.8. WBC elevated at 17.1. Repeat lactic acid 1.3. currently on Rocephin. Blood and urine cultures ordered. 2. Acute kidney injury. Creatinine 1.54 bun 35. Continue fluids at normal saline at 125. Patient's home medication of lisinopril hydrochlorothiazide has been DC'd. We'll continue to monitor closely 3. Nausea and vomiting. KUB x-ray completed showing no acute findings. Amylase and lipase has been ordered 4. History of cholecystectomy 5. Diabetes mellitus. Home medications resumed. Sliding scale coverage added 6. History of fibromyalgia 7. History of hyperlipidemia 8. History of essential hypertension. Patient's home dose of Lexapro hydrochlorothiazide on hold due to acute kidney injury 9. History of osteoarthritis 10. History of anxiety and depression. 11. Hyperkalemia. Potassium 5.2. Patient's hydrochlorothiazide and lisinopril on hold. Will order Kayexalate DVT prophylaxis heparin. GI prophylaxis Protonix Time with Patient: Greater than 30 (Greater than 60% of the total time spent in counseling and coordination of care. I performed an examination of the patient and discussed their management with the Nurse Practitioner. I have reviewed the Nurse Practitioner's notes and agree with the documented findings and plan of care)
[2018-11-07] MEDS: INSULIN ASPART (NovoLOG) 100 UNIT/ML VIAL SQ SCH ×3 (12:33→20:36)
[2018-11-07 12:47] LABS: Amylase 31 U/L (30-110); Lipase 76 U/L (23-300)
[2018-11-07 15:52] LABS: Glucose,Whole Blood 201 mg/dL (75-99)
[2018-11-07] MEDS ORDERED: ALPRAZolam 0.25 MG TAB PO PRN (15:54)
[2018-11-07 17:16] LABS: Glucose,Whole Blood 173 mg/dL (75-99)
[2018-11-07] MEDS: HEPARIN SODIUM,PORCINE 5,000 UNIT/ML 1 ML VIAL SQ SCH (20:20)
[2018-11-07] MEDS: FERROUS SULFATE 325 MG TAB PO SCH (20:20)
[2018-11-07 23:13] LABS: Glucose,Whole Blood 89 mg/dL (75-99)
[2018-11-08] MEDS: SODIUM CHLORIDE 0.9% 1,000 ML IV SCH ×4 (00:16→23:11)
[2018-11-08] MEDS: oxyCODONE-APAP 7.5-325MG 1 EACH TAB PO PRN ×4 (04:26→23:10)
[2018-11-08 07:33] LABS: Glucose,Whole Blood 75 mg/dL (75-99)
[2018-11-08] MEDS: INSULIN ASPART (NovoLOG) 100 UNIT/ML VIAL SQ SCH ×4 (07:34→20:16)
[2018-11-08] MEDS: PANTOPRAZOLE 40 MG TABLET PO SCH (07:35)
[2018-11-08] MEDS: HEPARIN SODIUM,PORCINE 5,000 UNIT/ML 1 ML VIAL SQ SCH ×2 (07:39→20:21)
[2018-11-08] MEDS: MORPHINE SULFATE 4 MG/ML SYRINGE IV PRN (08:22)
--- NOTE | 2018-11-08 09:15 | US ---
EXAMINATION TYPE: US abdomen complete DATE OF EXAM: 11/08/2018 COMPARISON: Prior ultrasound 09/14/[address] 09/15/2017 CLINICAL HISTORY: elevated liver enzymes, nausea and vomiting. EXAM MEASUREMENTS: Liver Length: 17.9 cm Gallbladder Wall: Surgically absent cm CBD: 0.9 cm Spleen: 12.9 cm Right Kidney: 10.2 x 5.2 x 5.1 cm Left Kidney: 11.3 x 5.9 x 5.5 cm Technically difficult exam performed portably on patient who is in a great deal of pain and unable to tolerate probe pressure. Pancreas: visualized portions stable, mildly heterogeneous echotexture of the head of the pancreas Liver: Remains enlarged, echotexture is coarse Gallbladder: Surgically absent CBD: wnl Spleen: hypoechoic lesion seen measures 3.9 x 3.6 x 3.6 cm. Right Kidney: multiple cysts, largest upper pole measures 2.4 x 2.4 x 2.4 cm. Cysts in the right kid daniel show imperceptible wall, increased through transmission and are anechoic compatible with simple c ysts Left Kidney: stone measures 1.0 x 0.7 x 0.8 cm. Cystic focus in the left kidney shows an associated prominent lower pole calyx, there may be some focal obstruction or caliectasis Upper IVC: wnl Abd Aorta: not visualized due to bowel gas and patient unable to take probe pressure. There is no ascites. IMPRESSION: Technically limited exam. Status post cholecystectomy. Findings suggest hepatic steatosis . Dilation the common bile duct likely due to postcholecystectomy change. Probable splenic cyst. Left -sided nephrolithiasis as described.
[2018-11-08 10:57] LABS: Basophils % (A) 0 %; Eosinophils # (A) 0.1 k/uL (0-0.7); Eosinophils % (A) 1 %; HGB 10.9 gm/dL (11.4-16.0); Lymphocytes # (A) 0.7 k/uL (1.0-4.8); Lymphocytes % (A) 7 %; MCH 34.4 pg (25.0-35.0); MCV 101.1 fL (80.0-100.0); Macrocytosis Slight; Mean Platelet Volume 7.4; Monocytes # (A) 0.4 k/uL (0-1.0); Monocytes % (A) 3 %; Neutrophils % (A) 87 %; Platelet Count 211 k/uL (150-450); RBC 3.17 m/uL (3.80-5.40); RDW 14.6 % (11.5-15.5); WBC 10.3 k/uL (3.8-10.6)
[2018-11-08 11:25] LABS: Albumin 3.4 g/dL (3.5-5.0); Calcium 8.3 mg/dL (8.4-10.2); Potassium 3.8 mmol/L (3.5-5.1); Total Bilirubin 0.8 mg/dL (0.2-1.3); Total Protein 6.2 g/dL (6.3-8.2)
--- NOTE | 2018-11-08 11:41 | P.PN ---
Subjective Progress Note Date: 11/08/18 This is a 73-year-old female patient of Dr. Snow. Patient presented to the hospital with complaints of generalized weakness, nausea and vomiting. Patient reports that she has been feeling increasingly nauseous with vomiting throughout the day yesterday. Patient denies any diarrhea. Patient denies any fevers. She denies any recent upper respiratory infections. Patient does have past medical history of diabetes mellitus, fibromyalgia, hyperlipidemia, hypertension, osteoarthritis, renal disease, cholecystectomy, anxiety and depression. Chest x-ray completed showing no acute findings. KUB x-ray completed showing no acute findings. Head CT completed showing no acute hemorrhage, hydrocephalus or mass effect. EKG completed showing normal sinus rhythm low voltage QRS borderline EKG. UA positive for large amount of leukocyte Estrace. Patient started on Rocephin and urine culture and blood culture ordered. Patient's white blood cell elevated at 17.1 and lactic acid 2.8. Patient did receive fluid emergency department. Currently normal saline at 125. This time patient is resting in bed. At this time patient is resting comfortably in bed. Still complaining of overall generalized weakness. Patient denies chest pain or shortness breath. Patient is still complaining of some na usea. Will order amylase and lipase levels. Patient denies any diarrhea or constipation. On 11/08/2018 patient's alert and oriented 3. At this time patient is complaining of generalized chronic pain. Patient states she takes her Percocet 4 times a day per her pain doctor. Patient denies any specific localized pain. Urology has been consulted due to abdominal ultrasound. Potassium is improved today. Continue to monitor creatinine. At this time patient denies chest pain or shortness of breath. Patient denies any nausea or vomiting. Patient denies any urinary burning or frequency. Patient remains on Rocephin for UTI Objective - Vital Signs Vital signs: Vital Signs Temp 98 F 11/08/18 05:35 Pulse 74 11/08/18 05:35 Resp 20 11/08/18 05:35 BP 99/64 11/08/18 05:35 Pulse Ox 95 11/08/18 05:35 Intake & Output 11/07/18 11/08/18 11/08/18 18:59 06:59 18:59 Other: Voiding Method Toilet Toilet Toilet # Voids 2 3 # Bowel Movements 2 1 - Exam Head normocephalic Neck supple Lungs clear to auscultation bilaterally no wheezing or crackles Heart regular rate and rhythm S1-S2, no rub or gallop Abdomen is soft nontender nondistended positive bowel sounds no hepatosplenomegaly Extremities +1 bilateral lower extremity edema Neuro alert and orientated to 3 - Labs CBC & Chem 7: 11/08/18 10:14 11/08/18 10:14 Labs: Abnormal Lab Results - Last 24 Hours (Table) 11/07/18 11/07/18 11/07/18 Range/Units 10:57 11:59 15:31 RBC (3.80-5.40) m/uL Hgb (11.4-16.0) gm/dL Hct (34.0-46.0) % MCV (80.0-100.0) fL Neutrophils # (1.3-7.7) k/uL Lymphocytes # (1.0-4.8) k/uL Sodium 132 L (137-145) mmol/L Potassium 5.2 H (3.5-5.1) mmol/L Carbon Dioxide (22-30) mmol/L BUN 35 H (7-17) mg/dL Creatinine 1.54 H (0.52-1.04) mg/dL Glucose 123 H (74-99) mg/dL POC Glucose (mg/dL) 113 H 201 H (75-99) mg/dL Calcium (8.4-10.2) mg/dL Total Bilirubin 1.5 H (0.2-1.3) mg/dL AST 77 H (14-36) U/L Total Protein (6.3-8.2) g/dL Albumin (3.5-5.0) g/dL 11/07/18 11/08/18 11/08/18 Range/Units 17:12 10:14 10:14 RBC 3.17 L (3.80-5.40) m/uL Hgb 10.9 L (11.4-16.0) gm/dL Hct 32.0 L (34.0-46.0) % MCV 101.1 H (80.0-100.0) fL Neutrophils # 9.0 H (1.3-7.7) k/uL Lymphocytes # 0.7 L (1.0-4.8) k/uL Sodium 135 L (137-145) mmol/L Potassium (3.5-5.1) mmol/L Carbon Dioxide 21 L (22-30) mmol/L BUN 33 H (7-17) mg/dL Creatinine 1.52 H (0.52-1.04) mg/dL Glucose (74-99) mg/dL POC Glucose (mg/dL) 173 H (75-99) mg/dL Calcium 8.3 L (8.4-10.2) mg/dL Total Bilirubin (0.2-1.3) mg/dL AST 67 H (14-36) U/L Total Protein 6.2 L (6.3-8.2) g/dL Albumin 3.4 L (3.5-5.0) g/dL Microbiology - Last 24 Hours (Table) 11/07/18 00:10 Urine Culture - Final Urine,Clean Catch 11/06/18 23:37 Blood Culture - Preliminary Blood No Growth after 24 hours Assessment and Plan Assessment: 1. Urinary tract infection with sepsis. Lactic acid elevated at 2.8. WBC elevated at 17.1. Repeat lactic acid 1.3. currently on Rocephin. Blood and urine cultures ordered. White blood cell has improved to 10.3 2. Acute kidney injury. Creatinine 1.54 bun 35. Continue fluids at normal florencio ine at 125. Patient's home medication of lisinopril hydrochlorothiazide has been DC'd. Creatinine trending down to 1.52 and bun 33 3. Nausea and vomiting. KUB x-ray completed showing no acute findings. Amylase and lipase has been ordered 4. History of cholecystectomy 5. Diabetes mellitus. Home medications resumed. Sliding scale coverage added 6. History of fibromyalgia 7. History of hyperlipidemia 8. History of essential hypertension. Patient's home dose of Lisinopril hydrochlorothiazide on hold due to acute kidney injury 9. History of osteoarthritis 10. History of anxiety and depression. 11. Hyperkalemia. Potassium 5.2. Patient's hydrochlorothiazide and lisinopril on hold. Will order Kayexalate. Repeat potassium 3.8 12. Elevated liver enzymes. Total bili 1.5 and AST 77. Abdominal ultrasound completed showing status post cholecystectomy. Findings suggest hepatic steatosis dilation the common bile duct likely due to post Heidi changes. Probable splenic cyst. Left-sided nephrolithiasis as described. Will consult urology service is DVT prophylaxis heparin. GI prophylaxis Protonix I performed an examination of the patient and discussed their management with the Nurse Practitioner. I have reviewed the Nurse Practitioner's notes and agree with the documented findings and plan of care
[2018-11-08 11:52] LABS: Glucose,Whole Blood 101 mg/dL (75-99)
--- NOTE | 2018-11-08 14:10 | P.GSCN ---
History of Present Illness Consult date: 11/08/18 History of present illness: the patient is a 73-year-old female who was admitted the hospital another day after passing out. It became evident that she had a urinary tract infection with sepsis with infected looking urine, and elevated white count of 17,000 and elevated lactic acid.she had a urine culture that grew skin and genital dileep. Her white count has gone down to 10,000 after 2 days of antibiotics. She states that she is feeling better. She had a an ultrasound that identified bilateral renal cysts and a left lower pole calyceal stone. She has known that she has had a stone for some time. She had a CAT scan in September 2017 identifying this 15 mm stone in the left lower pole calyx of. He has never had a stone before. The stone is been asymptomatic. The identification of the stone was coincidental when she had an x-ray for another reason. She has had periodic infections. He has not had febrile infections. She has not seen a urologist before. She is not having significant back pain at this point in time.the patient is diabetic and has chronic renal insufficiency based on review of previous laboratory studies Review of Systems - Constitutional Reports anorexia, Reports chronic headaches, Reports sweats - Genitourinary Genitourinary: Reports as per HPI Past Medical History Past Medical History: Diabetes Mellitus, Fibromyalgia, Hyperlipidemia, Hypertension, Osteoarthritis (OA), Renal Disease Additional Past Medical History / Comment(s): NIDDM type II, neuropathy in hands and feet bilaterally, chronic low back and leg pain. History of Any Multi-Drug Resistant Organisms: None Reported Past Surgical History: Cholecystectomy Additional Past Surgical History / Comment(s): D & C, right hand tendon surgery, low back injections, pain procedures. Past Anesthesia/Blood Transfusion Reactions: No Reported Reaction Past Psychological History: Anxiety, Depression Additional Psychological History / Comment(s): Pt. resides alone. She ambulates with a walker. She does not drive, she gets to appts by friends or bus. Smoking Status: Former smoker Past Alcohol Use History: None Reported Additional Past Alcohol Use History / Comment(s): Pt. started smoking as a teen and quit in 1987. Past Drug Use History: None Reported - Past Family History Father Family Medical History: Cancer Additional Family Medical History / Comment(s): Pt states her family was estranged from her. She knows her father had cancer but not what type. Mother History Unknown: Yes Medications and Allergies Home Medications Medication Instructions Recorded Confirmed Type Lisinopril-Hctz 20-12.5 mg 1 tab PO DAILY 10/21/14 11/06/18 History [Zestoretic 20-12.5] Ergocalciferol [Vitamin D2 50,000 unit PO TU 08/09/15 11/06/18 History (DRISDOL)] Ferrous Sulfate [Iron (65 MG 325 mg PO HS 06/22/16 11/06/18 History Elemental)] oxyCODONE HCL/ACETAMINOPHEN 1 tab PO TID PRN 03/24/17 11/06/18 History [Percocet 7.5-325 mg] DULoxetine HCL [Cymbalta] See Taper PO DIRECTED 11/06/18 11/07/18 History glipiZIDE XL [Glucotrol XL] 5 mg PO DAILY 11/06/18 11/06/18 History Allergies Allergy/AdvReac Type Severity Reaction Status Date / Time glimepiride Allergy Mild Unknown Verified 09/14/17 10:45 ibuprofen Allergy Unknown Verified 09/14/17 10:45 metformin Allergy Unknown Verified 09/14/17 10:45 Bwppqrf-Nvp-Wep Reductase Allergy Unknown Verified 11/06/18 21:59 Inhibitor Sulfa (Sulfonamide Allergy Unknown Verified 11/06/18 21:59 Antibiotics) tizanidine AdvReac LOW BLOOD Verified 09/14/17 10:45 PRESSURE/SLEEPY Surgical - Exam Vital Signs Temp Pulse Resp BP Pulse Ox 100.6 F H 79 22 114/53 98 11/06/18 21:27 11/06/18 21:27 11/06/18 21:27 11/06/18 21:27 11/06/18 21:27 - General well developed, well nourished, no distress - Eyes PERRL - ENT no hearing loss - Neck trachea midline - Respiratory normal expansion, normal respiratory effort - Cardiovascular Rhythm: regular - Abdomen Abdomen: soft, non tender - Integumentary no rash, no growths - Neurologic normal coordination, normal sensation, combative - Musculoskeletal normal posture - Psychiatric oriented to time, oriented to person, oriented to place, speech is normal, memory intact Results - Labs 11/08/18 10:14 11/08/18 10:14 Abnormal Lab Results - Last 24 Hours (Table) 11/07/18 11/07/18 11/08/18 Range/Units 15:31 17:12 10:14 RBC 3.17 L (3.80-5.40) m/uL Hgb 10.9 L (11.4-16.0) gm/dL Hct 32.0 L (34.0-46.0) % MCV 101.1 H (80.0-100.0) fL Neutrophils # 9.0 H (1.3-7.7) k/uL Lymphocytes # 0.7 L (1.0-4.8) k/uL Sodium (137-145) mmol/L Carbon Dioxide (22-30) mmol/L BUN (7-17) mg/dL Creatinine (0.52-1.04) mg/dL POC Glucose (mg/dL) 201 H 173 H (75-99) mg/dL Calcium (8.4-10.2) mg/dL AST (14-36) U/L Total Protein (6.3-8.2) g/dL Albumin (3.5-5.0) g/dL 11/08/18 11/08/18 Range/Units 10:14 11:48 RBC (3.80-5.40) m/uL Hgb (11.4-16.0) gm/dL Hct (34.0-46.0) % MCV (80.0-100.0) fL Neutrophils # (1.3-7.7) k/uL Lymphocytes # (1.0-4.8) k/uL Sodium 135 L (137-145) mmol/L Carbon Dioxide 21 L (22-30) mmol/L BUN 33 H (7-17) mg/dL Creatinine 1.52 H (0.52-1.04) mg/dL POC Glucose (mg/dL) 101 H (75-99) mg/dL Calcium 8.3 L (8.4-10.2) mg/dL AST 67 H (14-36) U/L Total Protein 6.2 L (6.3-8.2) g/dL Albumin 3.4 L (3.5-5.0) g/dL Microbiology - Last 24 Hours (Table) 11/07/18 00:10 Urine Culture - Final Urine,Clean Catch 11/06/18 23:37 Blood Culture - Preliminary Blood No Growth after 24 hours Diabetes panel 11/08/18 Range/Units 10:14 Sodium 135 L (137-145) mmol/L Potassium 3.8 (3.5-5.1) mmol/L Chloride 101 (98-107) mmol/L Carbon Dioxide 21 L (22-30) mmol/L BUN 33 H (7-17) mg/dL Creatinine 1.52 H (0.52-1.04) mg/dL Glucose 97 (74-99) mg/dL Calcium 8.3 L (8.4-10.2) mg/dL AST 67 H (14-36) U/L ALT 43 (9-52) U/L Alkaline Phosphatase 75 (38-126) U/L Total Protein 6.2 L (6.3-8.2) g/dL Albumin 3.4 L (3.5-5.0) g/dL Calcium panel 11/08/18 Range/Units 10:14 Calcium 8.3 L (8.4-10.2) mg/dL Albumin 3.4 L (3.5-5.0) g/dL Pituitary panel 11/08/18 Range/Units 10:14 Sodium 135 L (137-145) mmol/L Potassium 3.8 (3.5-5.1) mmol/L Chloride 101 (98-107) mmol/L Carbon Dioxide 21 L (22-30) mmol/L BUN 33 H (7-17) mg/dL Creatinine 1.52 H (0.52-1.04) mg/dL Glucose 97 (74-99) mg/dL Calcium 8.3 L (8.4-10.2) mg/dL Adrenal panel 11/08/18 Range/Units 10:14 Sodium 135 L (137-145) mmol/L Potassium 3.8 (3.5-5.1) mmol/L Chloride 101 (98-107) mmol/L Carbon Dioxide 21 L (22-30) mmol/L BUN 33 H (7-17) mg/dL Creatinine 1.52 H (0.52-1.04) mg/dL Glucose 97 (74-99) mg/dL Calcium 8.3 L (8.4-10.2) mg/dL Total Bilirubin 0.8 (0.2-1.3) mg/dL AST 67 H (14-36) U/L ALT 43 (9-52) U/L Alkaline Phosphatase 75 (38-126) U/L Total Protein 6.2 L (6.3-8.2) g/dL Albumin 3.4 L (3.5-5.0) g/dL - Imaging CT scan - abdomen: report reviewed, image reviewed CT scan - pelvis: report reviewed, image reviewed US - abdomen: report reviewed, image reviewed US - pelvic: report reviewed, image reviewed Assessment and Plan Assessment: impression: Urinary tract infection with sepsis being successfully treated. Left renal stone, asymptomatic chronic. Diabetes. Chronic renal failure. Recommendations: The patient is being appropriately treated with antibiotics. Despite the fact the culture showed genital dileep or skin floor I believe this was a urinary tract infection based on urinalysis and the clinical response. I would continue with IV antibiotics and when the white count is less than 10,000 she can be placed on a broad-spectrum oral antibiotic. From a urologic standpoint the question is whether the stone needs to be removed and I would wait till after she's been treated with antibiotics to see if the urine reinfects suggesting an infected stone. Otherwise treatment is not an absolute. She can have a CAT scan as an outpatient which I will order for the kidney stone. I will follow with you.
[2018-11-08] MEDS: DULoxetine HCL 60 MG CAPSULE.DR PO SCH (15:32)
[2018-11-08 17:05] LABS: Glucose,Whole Blood 73 mg/dL (75-99)
[2018-11-08] MEDS: FERROUS SULFATE 325 MG TAB PO SCH (20:21)
[2018-11-08 20:27] LABS: Glucose,Whole Blood 109 mg/dL (75-99)
[2018-11-09] MEDS: oxyCODONE-APAP 7.5-325MG 1 EACH TAB PO PRN ×3 (05:26→17:56)
[2018-11-09 07:05] LABS: Glucose,Whole Blood 79 mg/dL (75-99)
[2018-11-09] MEDS: INSULIN ASPART (NovoLOG) 100 UNIT/ML VIAL SQ SCH ×4 (07:10→20:46)
[2018-11-09] MEDS: SODIUM CHLORIDE 0.9% 1,000 ML IV SCH ×2 (08:10→17:14)
[2018-11-09] MEDS: PANTOPRAZOLE 40 MG TABLET PO SCH (08:10)
[2018-11-09] MEDS: HEPARIN SODIUM,PORCINE 5,000 UNIT/ML 1 ML VIAL SQ SCH ×2 (08:10→20:56)
--- NOTE | 2018-11-09 10:16 | P.PN ---
Subjective Progress Note Date: 11/09/18 This is a 73-year-old female patient of Dr. Snow. Patient presented to the hospital with complaints of generalized weakness, nausea and vomiting. Patient reports that she has been feeling increasingly nauseous with vomiting throughout the day yesterday. Patient denies any diarrhea. Patient denies any fevers. She denies any recent upper respiratory infections. Patient does have past medical history of diabetes mellitus, fibromyalgia, hyperlipidemia, hypertension, osteoarthritis, renal disease, cholecystectomy, anxiety and depression. Chest x-ray completed showing no acute findings. KUB x-ray completed showing no acute findings. Head CT completed showing no acute hemorrhage, hydrocephalus or mass effect. EKG completed showing normal sinus rhythm low voltage QRS borderline EKG. UA positive for large amount of leukocyte Estrace. Patient started on Rocephin and urine culture and blood culture ordered. Patient's white blood cell elevated at 17.1 and lactic acid 2.8. Patient did receive fluid emergency department. Currently normal saline at 125. This time patient is resting in bed. At this time patient is resting comfortably in bed. Still complaining of overall generalized weakness. Patient denies chest pain or shortness breath. Patient is still complaining of some na usea. Will order amylase and lipase levels. Patient denies any diarrhea or constipation. On 11/08/2018 patient's alert and oriented 3. At this time patient is complaining of generalized chronic pain. Patient states she takes her Percocet 4 times a day per her pain doctor. Patient denies any specific localized pain. Urology has been consulted due to abdominal ultrasound. Potassium is improved today. Continue to monitor creatinine. At this time patient denies chest pain or shortness of breath. Patient denies any nausea or vomiting. Patient denies any urinary burning or frequency. Patient remains on Rocephin for UTI On 11/09/2018 patient remains alert and oriented 3. At this time patient states she saw blood in her stool. Will order stool for occult blood. Patient still complaining of generalized discomfort. Patient was evaluated by urology services plans for outpatient CT for further management. This time patient denies chest pain or shortness breath. Patient denies nausea vomiting or diarrhea. Patient denies any urinary burning or frequency. Objective - Vital Signs Vital signs: Vital Signs Temp 96.9 F L 11/09/18 05:27 Pulse 66 04/03/19 05:27 Resp 18 11/09/18 05:27 BP 156/68 11/09/18 05:27 Pulse Ox 97 11/09/18 05:27 Intake & Output 11/08/18 11/09/18 11/09/18 18:59 06:59 18:59 Intake Total 600 Balance 600 Intake: Oral 600 Other: Voiding Method Toilet # Voids 5 3 # Bowel Movements 2 - Exam Head normocephalic Neck supple Lungs clear to auscultation bilaterally no wheezing or crackles Heart regular rate and rhythm S1-S2, no rub or gallop Abdomen is soft nontender nondistended positive bowel sounds no hepatosplenomegaly Extremities +1 bilateral lower extremity edema Neuro alert and orientated to 3 - Labs CBC & Chem 7: 11/08/18 10:14 11/08/18 10:14 Labs: Abnormal Lab Results - Last 24 Hours (Table) 11/08/18 11/08/18 11/08/18 Range/Units 10:14 10:14 11:48 RBC 3.17 L (3.80-5.40) m/uL Hgb 10.9 L (11.4-16.0) gm/dL Hct 32.0 L (34.0-46.0) % MCV 101.1 H (80.0-100.0) fL Neutrophils # 9.0 H (1.3-7.7) k/uL Lymphocytes # 0.7 L (1.0-4.8) k/uL Sodium 135 L (137-145) mmol/L Carbon Dioxide 21 L (22-30) mmol/L BUN 33 H (7-17) mg/dL Creatinine 1.52 H (0.52-1.04) mg/dL POC Glucose (mg/dL) 101 H (75-99) mg/dL Calcium 8.3 L (8.4-10.2) mg/dL AST 67 H (14-36) U/L Total Protein 6.2 L (6.3-8.2) g/dL Albumin 3.4 L (3.5-5.0) g/dL 11/08/18 11/08/18 Range/Units 16:43 20:15 RBC (3.80-5.40) m/uL Hgb (11.4-16.0) gm/dL Hct (34.0-46.0) % MCV (80.0-100.0) fL Neutrophils # (1.3-7.7) k/uL Lymphocytes # (1.0-4.8) k/uL Sodium (137-145) mmol/L Carbon Dioxide (22-30) mmol/L BUN (7-17) mg/dL Creatinine (0.52-1.04) mg/dL POC Glucose (mg/dL) 73 L 109 H (75-99) mg/dL Calcium (8.4-10.2) mg/dL AST (14-36) U/L Total Protein (6.3-8.2) g/dL Albumin (3.5-5.0) g/dL Microbiology - Last 24 Hours (Table) 11/06/18 23:37 Blood Culture - Preliminary Blood No Growth after 48 hours 11/07/18 00:10 Urine Culture - Final Urine,Clean Catch Assessment and Plan Assessment: 1. Urinary tract infection with sepsis. Lactic acid elevated at 2.8. WBC elevated at 17.1. Repeat lactic acid 1.3. currently on Rocephin. Blood and urine cultures ordered. White blood cell has improved to 10.3 2. Acute kidney injury. Creatinine 1.54 bun 35. Continue fluids at normal saline at 125. Patient's home medication of lisinopril hydrochlorothiazide has been DC'd. Creatinine trending down to 1.52 and bun 33 3. Nausea and vomiting. KUB x-ray completed showing no acute findings. Amylase and lipase has been ordered 4. History of cholecystectomy 5. Diabetes mellitus. Home medications resumed. Sliding scale coverage added 6. History of fibromyalgia 7. History of hyperlipidemia 8. History of essential hypertension. Patient's home dose of Lisinopril hydrochlorothiazide on hold due to acute kidney injury 9. History of osteoarthritis 10. History of anxiety and depression. 11. Hyperkalemia. Potassium 5.2. Patient's hydrochlorothiazide and lisinopril on hold. Will order Kayexalate. Repeat potassium 3.8 12. Elevated liver enzymes. Total bili 1.5 and AST 77. Liver enzymes trending down. Continue to monitor 13 left renal stone. Abdominal ultrasound completed showing status post cholecystectomy. Findings suggest hepatic steatosis dilation the common bile duct likely due to post Heidi changes. Probable splenic cyst. Left-sided nephrolithiasis as described. Per urology services plan is to wait for outpatient follow-up with CT to evaluate his stone needs to be removed DVT prophylaxis heparin. GI prophylaxis Protonix I performed an examination of the patient and discussed their management with the Nurse Practitioner. I have reviewed the Nurse Practitioner's notes and agree with the documented findings and plan of care
[2018-11-09 10:26] LABS: Albumin 2.9 g/dL (3.5-5.0); Calcium 8.2 mg/dL (8.4-10.2); Potassium 3.9 mmol/L (3.5-5.1); Total Bilirubin 0.4 mg/dL (0.2-1.3); Total Protein 5.6 g/dL (6.3-8.2)
[2018-11-09 12:24] LABS: Glucose,Whole Blood 111 mg/dL (75-99)
[2018-11-09 12:44] LABS: Basophils % (A) 0 %; Eosinophils # (A) 0.2 k/uL (0-0.7); Eosinophils % (A) 2 %; HCT 29.4 % (34.0-46.0); Lymphocytes # (A) 0.6 k/uL (1.0-4.8); Lymphocytes % (A) 8 %; MCHC 34.2 g/dL (31.0-37.0); MCV 99.5 fL (80.0-100.0); Mean Platelet Volume 8.6; Monocytes # (A) 0.4 k/uL (0-1.0); Monocytes % (A) 5 %; Neutrophils # (A) 5.9 k/uL (1.3-7.7); Neutrophils % (A) 81 %; Platelet Count 174 k/uL (150-450); RBC 2.96 m/uL (3.80-5.40); RDW 14.1 % (11.5-15.5); WBC 7.2 k/uL (3.8-10.6)
[2018-11-09 17:14] LABS: Glucose,Whole Blood 91 mg/dL (75-99)
[2018-11-09 20:36] LABS: Glucose,Whole Blood 141 mg/dL (75-99)
[2018-11-09] MEDS: FERROUS SULFATE 325 MG TAB PO SCH (20:56)
[2018-11-10] MEDS: oxyCODONE-APAP 7.5-325MG 1 EACH TAB PO PRN ×3 (00:48→14:41)
[2018-11-10] MEDS: SODIUM CHLORIDE 0.9% 1,000 ML IV SCH ×2 (00:48→09:15)
[2018-11-10 06:37] VITALS: BP 147/75; PULSE 78; RESP 24; TEMP 97.1
[2018-11-10] MEDS: INSULIN ASPART (NovoLOG) 100 UNIT/ML VIAL SQ SCH ×2 (07:36→12:34)
[2018-11-10 07:38] LABS: Glucose,Whole Blood 90 mg/dL (75-99)
[2018-11-10] MEDS: ONDANSETRON 4 MG/2 ML VIAL IVP PRN (07:40)
[2018-11-10] MEDS: PANTOPRAZOLE 40 MG TABLET PO SCH (09:15)
[2018-11-10] MEDS: HEPARIN SODIUM,PORCINE 5,000 UNIT/ML 1 ML VIAL SQ SCH (09:15)
[2018-11-10 10:53] LABS: Basophils % (A) 0 %; Eosinophils # (A) 0.1 k/uL (0-0.7); Eosinophils % (A) 2 %; HCT 27.5 % (34.0-46.0); HGB 8.9 gm/dL (11.4-16.0); Lymphocytes # (A) 0.8 k/uL (1.0-4.8); Lymphocytes % (A) 11 %; MCHC 32.5 g/dL (31.0-37.0); MCV 101.4 fL (80.0-100.0); Macrocytosis Slight; Mean Platelet Volume 8.3; Monocytes # (A) 0.3 k/uL (0-1.0); Monocytes % (A) 4 %; Neutrophils # (A) 5.6 k/uL (1.3-7.7); Neutrophils % (A) 81 %; Platelet Count 199 k/uL (150-450); RBC 2.71 m/uL (3.80-5.40); RDW 14.2 % (11.5-15.5); WBC 6.9 k/uL (3.8-10.6)
[2018-11-10 11:14] LABS: Albumin 3.1 g/dL (3.5-5.0); Calcium 8.6 mg/dL (8.4-10.2); Potassium 4.3 mmol/L (3.5-5.1); Total Bilirubin 0.5 mg/dL (0.2-1.3); Total Protein 5.8 g/dL (6.3-8.2)
[2018-11-10 12:11] LABS: Glucose,Whole Blood 122 mg/dL (75-99)
[2018-11-10] MEDS ORDERED: LOPERAMIDE 2 MG CAP PO PRN (12:24)
[2018-11-10] MEDS: DULoxetine HCL 60 MG CAPSULE.DR PO SCH (14:37)
--- NOTE | 2018-11-10 15:36 | P.DS ---
Providers Date of admission: 11/09/18 07:49 Expected date of discharge: 11/10/18 Attending physician: Jony Bone Consults: 11/08/18 10:46 Consult Physician Routine Consulting Provider: Mando Hester Consult Reason/Comments: Abdominal ultrasound result Do you want consulting provider notified?: Yes 11/09/18 14:05 Consult Physician Routine Consulting Provider: Kuldeep Simms Consult Reason/Comments: Blood in stool Do you want consulting provider notified?: Yes Primary care physician: Medina Snow Hospital Course: Discharge diagnosis 1. Urinary tract infection with sepsis. Lactic acid elevated at 2.8. WBC elevated at 17.1. Repeat lactic acid 1.3. currently on Rocephin. Blood and urine cultures ordered. White blood cell has improved to 10.3. Blood culture showing no growth 2. Acute kidney injury. Creatinine 1.54 bun 35. Continue fluids at normal saline at 125. Patient's home medication of lisinopril hydrochlorothiazide has been DC'd. Creatinine trending down to 1.07 and bun 19 3. Nausea and vomiting. KUB x-ray completed showing no acute findings. Amylase and lipase within normal limits. C. diff negative 4. History of cholecystectomy 5. Diabetes mellitus. Home medications resumed. Sliding scale coverage added 6. History of fibromyalgia 7. History of hyperlipidemia 8. History of essential hypertension. Patient's home dose of Lisinopril hydrochlorothiazide on hold due to acute kidney injury 9. History of osteoarthritis 10. History of anxiety and depression. 11. Hyperkalemia. Potassium 5.2. Patient's hydrochlorothiazide and lisinopril on hold. Will order Kayexalate. Repeat potassium 3.8 12. Elevated liver enzymes. Total bili 1.5 and AST 77. Liver enzymes trending down. Continue to monitor. Total bili has normalized 0.5 and AST trending down to 53 13 left renal stone. Abdominal ultrasound completed showing status post cholecystectomy. Findings suggest hepatic steatosis dilation the common bile duct likely due to post Heidi changes. Probable splenic cyst. Left-sided nephrolithiasis as described. Per urology services plan is to wait for outpatient follow-up with CT to evaluate his stone needs to be removed 14. Anemia. Stool for occult blood negative. GI services did evaluate patient no further workup at this time to follow-up outpatient. Hemoglobin 8.9. Will order CBC for 3 days and patient to follow-up with PCP for further monitoring and management. She will be discharged on iron supplements Hospital course This is a 73-year-old female patient of Dr. Snow. Patient presented to the hospital with complaints of generalized weakness, nausea and vomiting. Patient reports that she has been feeling increasingly nauseous with vomiting throughout the day yesterday. Patient denies any diarrhea. Patient denies any fevers. She denies any recent upper respiratory infections. Patient does have past medical history of diabetes mellitus, fibromyalgia, hyperlipidemia, hypertension, osteoarthritis, renal disease, cholecystectomy, anxiety and depression. Chest x-ray completed showing no acute findings. KUB x-ray c ompleted showing no acute findings. Head CT completed showing no acute hemorrhage, hydrocephalus or mass effect. EKG completed showing normal sinus rhythm low voltage QRS borderline EKG. UA positive for large amount of leukocyte Estrace. Patient started on Rocephin and urine culture and blood culture ordered. Patient's white blood cell elevated at 17.1 and lactic acid 2.8. Patient did receive fluid emergency department. Currently normal saline at 125. This time patient is resting in bed. At this time patient is resting comfortably in bed. Still complaining of overall generalized weakness. Patient denies chest pain or shortness breath. Patient is still complaining of some nausea. Will order amylase and lipase levels. Patient denies any diarrhea or constipation. On 11/08/2018 patient's alert and oriented 3. At this time patient is complaining of generalized chronic pain. Patient states she takes her Percocet 4 times a day per her pain doctor. Patient denies any specific localized pain. Urology has been consulted due to abdominal ultrasound. Potassium is improved today. Continue to monitor creatinine. At this time patient denies chest pain or shortness of breath. Patient denies any nausea or vomiting. Patient denies any urinary burning or frequency. Patient remains on Rocephin for UTI On 11/09/2018 patient remains alert and oriented 3. At this time patient states she saw blood in her stool. Will order stool for occult blood. Patient still complaining of generalized discomfort. Patient was evaluated by urology services plans for outpatient CT for further management. This time patient denies chest pain or shortness breath. Patient denies nausea vomiting or diarrhea. Patient denies any urinary burning or frequency. On 11/10/2018 patient's alert and oriented 3. Patient did report she had some loose stool. C. diff is negative. Imodium was ordered. GI services did evaluate patient and cleared her for discharge. Patient to follow-up with her PCP for further monitoring of hemoglobin. Current hemoglobin 8.9. Patient also follow-up with urology services for follow-up CT. At this time patient denies chest pain or shortness breath. Patient denies nausea vomiting or diarrhea. Patient denies any urinary burning or frequency. CBC and CMP will be ordered for 3 days. Will be discharged on Ceftin for 5 more days. Patient's lisinopril hydrochlorothiazide DC'd upon discharge due to elevated creatinine. Patient to follow-up with PCP for further monitoring and initiating medication Patient Condition at Discharge: Stable Plan - Discharge Summary Discharge Rx Participant: No New Discharge Prescriptions: New Pantoprazole [Protonix] 40 mg PO AC-BRKFST 30 Days #30 tablet. Continue Ergocalciferol [Vitamin D2 (DRISDOL)] 50,000 unit PO TU Ferrous Sulfate [Iron (65 MG Elemental)] 325 mg PO HS oxyCODONE HCL/ACETAMINOPHEN [Percocet 7.5-325 mg] 1 tab PO TID PRN PRN Reason: Pain DULoxetine HCL [Cymbalta] See Taper PO DIRECTED glipiZIDE XL [Glucotrol XL] 5 mg PO DAILY Discontinued Lisinopril-Hctz 20-12.5 mg [Zestoretic 20-12.5] 1 tab PO DAILY Discharge Medication List Ergocalciferol [Vitamin D2 (DRISDOL)] 50,000 unit PO TU 08/09/15 [History] Ferrous Sulfate [Iron (65 MG Elemental)] 325 mg PO HS 06/22/16 [History] oxyCODONE HCL/ACETAMINOPHEN [Percocet 7.5-325 mg] 1 tab PO TID PRN 03/24/17 [History] DULoxetine HCL [Cymbalta] See Taper PO DIRECTED 11/06/18 [History] glipiZIDE XL [Glucotrol XL] 5 mg PO DAILY 11/06/18 [History] Pantoprazole [Protonix] 40 mg PO AC-BRKFST 30 Days #30 tablet. 11/10/18 [Rx] Follow up Appointment(s)/Referral(s): Medina Snow DO [Primary Care Provider] - 1-2 days
[2018-11-10 20:45] LABS: Iron Saturation 11.11 (12.00-45.00)
--- NOTE | 2018-11-11 09:27 | CDI ---
Documentation Clarification Form Date: 11/11/18 From: Brittney Esparza Phone: If you have a question regarding this query, please contact Carlyn Ryan at [phone] between 8am and 5pm. Admit Date: 11/09/2018 7:49:00 AM Patient Name: Jia Vail Visit Number: [id number] Discharge Date: 11/10/2018 4:15:00 PM ATTENTION: The Clinical Documentation Specialists (CDI) and [facility] Coding Staff appreciate your assistance in clarifying documentation. Please respond to the clarification below the line at the bottom and electronically sign. The CDI & [facility] Coding staff will review the response and follow-up if needed. Please note: Queries are made part of the Legal Health Record. If you have any questions, please contact the author of this message via ITS. Dr. [place] Patient was admitted with UTI and sepsis. Documentation in your consult note states the patient has chronic renal insufficiency based on review of previous lab studies and chronic renal failure is listed in your impression. History/Risk Factors: Patient also had acute renal failure on admission. The patieint has a history of diabetes, hypertension and chronic renal lithiasis. Clinical Indicators: Decreased GFR. Current BUN/CR/GFR: 31/1.43/37 on admit. Patients Baseline BUN/CR/GFR: /.07/52 at discharge. Treatment: IVF: Bolus 2 liters then at 125 mls/hr In order to capture the severity of condition, please clarify if the condition signifies: CKD Stage 1 (GFR > 90) CKD Stage 2 (GFR 60-89) CKD Stage 3 (GFR 30-59) CKD Stage 4 (GFR 15-29) CKD Stage 5 (GFR <15) ESRD Other, please specify Unable to determine The creatiine at d/c was improved donot have other creatinine to determine MTDD
== END 2018-11-10 16:15 | disposition home or self-care (01) | DRG 872 ==
LOC: EC 21:16 → 4MS4W 11-07 00:52 → OBSVTOIN 11-09 07:49
PROVIDERS: ADMIT Internal Medicine; ATTEND Internal Medicine
PROC: 05HF33Z Insertion of Infusion Device into Left Cephalic Vein, Percutaneous Approach (ICD-10-PCS; principal; 2018-11-07 11:15)
DX: A41.9 Sepsis, unspecified organism (principal); N17.9 Acute kidney failure, unspecified; N39.0 Urinary tract infection, site not specified; E11.42 Type 2 diabetes mellitus with diabetic polyneuropathy; E87.5 Hyperkalemia; E11.22 Type 2 diabetes mellitus with diabetic chronic kidney disease; D73.4 Cyst of spleen; E86.0 Dehydration; N28.1 Cyst of kidney, acquired; D64.9 Anemia, unspecified; K76.0 Fatty (change of) liver, not elsewhere classified; I12.9 Hypertensive chronic kidney disease with stage 1 through stage 4 chronic kidney disease, or unspecified chronic kidney disease; N18.9 Chronic kidney disease, unspecified; E78.5 Hyperlipidemia, unspecified; F32.9 Major depressive disorder, single episode, unspecified; F41.9 Anxiety disorder, unspecified; G89.29 Other chronic pain; K59.00 Constipation, unspecified; M79.7 Fibromyalgia; N20.0 Calculus of kidney; M19.90 Unspecified osteoarthritis, unspecified site; M79.606 Pain in leg, unspecified; M54.9 Dorsalgia, unspecified; Z79.84 Long term (current) use of oral hypoglycemic drugs; Z79.899 Other long term (current) drug therapy; Z88.6 Allergy status to analgesic agent; Z88.2 Allergy status to sulfonamides; Z88.8 Allergy status to other drugs, medicaments and biological substances; Z90.49 Acquired absence of other specified parts of digestive tract; Z87.891 Personal history of nicotine dependence; Z87.440 Personal history of urinary (tract) infections; Z80.9 Family history of malignant neoplasm, unspecified
CPT/HCPCS: 36410; 36415; 70450; 71046; 74018; 76700; 76937; 80053; 81001; 82150; 82272; 82728; 83540; 83550; 83605; 83690; 85025; 87040; 87086; 87324; 87502; 93005; 96361; 96365; 96375; 99285

== ENCOUNTER 2019-07-14 23:32 | Observation (INO) | payer MEDICARE ==
--- NOTE | 2019-07-14 23:36 | ED ---
General Adult HPI - General Stated complaint: weakness Time Seen by Provider: 07/14/19 23:36 - History of Present Illness Initial comments: Jia is a 4-year-old female who presents the emergency department today via EMS for evaluation of generalized weakness. Patient reports that this evening she rolled out of bed and felt too weak to get herself up off the floor so she called 911. Patient states that she's been feeling sick for a few days she thought she had the flu she's been having fevers chills myalgias and generalized malaise. She has not taken anything for this. She states she hasn't eaten in over 24 hours but has been trying to drink water. [place] any cough, chest pain palpitations or shortness of breath. - Related Data Home Medications Medication Instructions Recorded Confirmed Ergocalciferol [Vitamin D2 50,000 unit PO TU 08/09/15 11/06/18 (DRISDOL)] oxyCODONE HCL/ACETAMINOPHEN 1 tab PO TID PRN 03/24/17 11/06/18 [Percocet 7.5-325 mg] glipiZIDE XL [Glucotrol XL] 5 mg PO DAILY 11/06/18 11/06/18 Furosemide [Lasix] 20 mg PO DAILY 07/15/19 07/15/19 Lisinopril 20 mg PO DAILY 07/15/19 07/15/19 Previous Rx's Medication Instructions Recorded Ferrous Sulfate [Iron (65 MG 325 mg PO BID 30 Days #60 tab 11/10/18 Elemental)] Allergies Allergy/AdvReac Type Severity Reaction Status Date / Time glimepiride Allergy Mild Unknown Verified 09/14/17 10:45 ibuprofen Allergy Unknown Verified 09/14/17 10:45 metformin Allergy Unknown Verified 09/14/17 10:45 Vynohpl-Opy-Srv Reductase Allergy Unknown Verified 11/06/18 21:59 Inhibitor Sulfa (Sulfonamide Allergy Unknown Verified 11/06/18 21:59 Antibiotics) tizanidine AdvReac LOW BLOOD Verified 09/14/17 10:45 PRESSURE/SLEEPY Review of Systems ROS Statement: Those systems with pertinent positive or pertinent negative responses have been documented in the HPI. ROS Other: All systems not noted in ROS Statement are negative. Past Medical History Past Medical History: Diabetes Mellitus, Fibromyalgia, Hyperlipidemia, Hypertension, Osteoarthritis (OA), Renal Disease Additional Past Medical History / Comment(s): NIDDM type II, neuropathy in hands and feet bilaterally, chronic low back and leg pain. History of Any Multi-Drug Resistant Organisms: None Reported Past Surgical History: Cholecystectomy Additional Past Surgical History / Comment(s): D & C, right hand tendon surgery, low back injections, pain procedures. Past Anesthesia/Blood Transfusion Reactions: No Reported Reaction Past Psychological History: Anxiety, Depression Additional Psychological History / Comment(s): Pt. resides alone. She ambulates with a walker. She does not drive, she gets to appts by friends or bus. Smoking Status: Former smoker Past Alcohol Use History: None Reported Additional Past Alcohol Use History / Comment(s): Pt. started smoking as a teen and quit in 1987. Past Drug Use History: None Reported - Past Family History Father Family Medical History: Cancer Additional Family Medical History / Comment(s): Pt states her family was estranged from her. She knows her father had cancer but not what type. Mother History Unknown: Yes General Exam - General Exam Comments Initial Comments: Physical Exam GENERAL: Patient is well-developed and well-nourished. Patient is nontoxic and in no distress. Appears mildly dehydrated HENT: Normocephalic, Atraumatic. EYES: PERRL, EOMI PULMONARY: Unlabored respirations. No audible rales rhonchi or wheezing was noted. CARDIOVASCULAR: There is a regular rate and rhythm without any murmurs gallops or rubs. ABDOMEN: Soft and nontender with normal bowel sounds. SKIN: Skin is clear with no lesions or rashes and otherwise unremarkable. : Deferred NEUROLOGIC: Patient is alert and oriented x3. Moving all extremities spontaneously MUSCULOSKELETAL: Normal extremities with adequate strength and full range of motion. No lower extremity swelling or edema. No calf tenderness. PSYCHIATRIC: Normal psychiatric evaluation. Course Vital Signs 07/14/19 23:38 Temperature 98.1 F Pulse Rate 76 Respiratory 18 Rate Blood Pressure 131/59 O2 Sat by Pulse 94 L Oximetry EKG Findings - EKG Comments: EKG Findings:: KG was obtained due to complaint of generalized weakness EKG obtained at 2359, rate is 72 and rhythm is sinus is normal axis, normal intervals, DC 164, QRS 86, QTC [address] elevations or depressions no evidence of acute ischemia or infarction. Medical Decision Making - Medical Decision Making She was seen and evaluated upon arrival with EMS 74-year-old female with generalized weakness, reports myalgias malaise and subjective fevers Labs and imaging were ordered Labs reveal leukocytosis, elevated BUN and creatinine consistent with dehydration next sign urinalysis is obtained and is consistent with urinary tract infection excited additional labs including lactic acid blood cultures were ordered. Additional IV fluids were ordered for elevated BUN and creatinine Patient with no signs of severe sepsis or septic shock, patient awake alert oriented stable vital signs - she remains afebrile, normotensive, no tachycardia or tachypnea or other signs of sepsis qSOFA socre 0 Patient be admitted to the medical floor for urinary tract infection, generalized weakness, elevated creatinine kinase, dehydration - Lab Data Result diagrams: 07/14/19 23:54 07/14/19 23:54 Lab Results 07/14/19 07/14/19 07/14/19 Range/Units 23:54 23:54 23:54 WBC 15.4 H (3.8-10.6) k/uL RBC 3.20 L (3.80-5.40) m/uL Hgb 10.5 L (11.4-16.0) gm/dL Hct 31.4 L (34.0-46.0) % MCV 98.4 (80.0-100.0) fL MCH 32.7 (25.0-35.0) pg MCHC 33.2 (31.0-37.0) g/dL RDW 14.1 (11.5-15.5) % Plt Count 240 (150-450) k/uL Neutrophils % 91 % Lymphocytes % 3 % Monocytes % 5 % Eosinophils % 0 % Basophils % 0 % Neutrophils # 14.0 H (1.3-7.7) k/uL Lymphocytes # 0.4 L (1.0-4.8) k/uL Monocytes # 0.8 (0-1.0) k/uL Eosinophils # 0.0 (0-0.7) k/uL Basophils # 0.0 (0-0.2) k/uL Sodium 137 (137-145) mmol/L Potassium 4.2 (3.5-5.1) mmol/L Chloride 100 (98-107) mmol/L Carbon Dioxide 26 (22-30) mmol/L Anion Gap 11 mmol/L BUN 23 H (7-17) mg/dL Creatinine 1.48 H (0.52-1.04) mg/dL Est GFR (CKD-EPI)AfAm 40 (>60 ml/min/1.73 sqM) Est GFR (CKD-EPI)NonAf 35 (>60 ml/min/1.73 sqM) Glucose 137 H (74-99) mg/dL Plasma Lactic Acid Alex (0.7-2.0) mmol/L Calcium 8.9 (8.4-10.2) mg/dL Magnesium 1.6 (1.6-2.3) mg/dL Total Bilirubin 1.2 (0.2-1.3) mg/dL AST 19 (14-36) U/L ALT 19 (9-52) U/L Alkaline Phosphatase 70 (38-126) U/L Creatine Kinase 192 H (30-135) U/L Total Protein 6.6 (6.3-8.2) g/dL Albumin 4.0 (3.5-5.0) g/dL TSH 2.110 (0.465-4.680) mIU/L Influenza Type A RNA Not Detected (Not Detectd) Influenza Type B (PCR) Not Detected (Not Detectd) 07/14/19 Range/Units 23:54 WBC (3.8-10.6) k/uL RBC (3.80-5.40) m/uL Hgb (11.4-16.0) gm/dL Hct (34.0-46.0) % MCV (80.0-100.0) fL MCH (25.0-35.0) pg MCHC (31.0-37.0) g/dL RDW (11.5-15.5) % Plt Count (150-450) k/uL Neutrophils % % Lymphocytes % % Monocytes % % Eosinophils % % Basophils % % Neutrophils # (1.3-7.7) k/uL Lymphocytes # (1.0-4.8) k/uL Monocytes # (0-1.0) k/uL Eosinophils # (0-0.7) k/uL Basophils # (0-0.2) k/uL Sodium (137-145) mmol/L Potassium (3.5-5.1) mmol/L Chloride (98-107) mmol/L Carbon Dioxide (22-30) mmol/L Anion Gap mmol/L BUN (7-17) mg/dL Creatinine (0.52-1.04) mg/dL Est GFR (CKD-EPI)AfAm (>60 ml/min/1.73 sqM) Est GFR (CKD-EPI)NonAf (>60 ml/min/1.73 sqM) Glucose (74-99) mg/dL Plasma Lactic Acid Alex 1.8 (0.7-2.0) mmol/L Calcium (8.4-10.2) mg/dL Magnesium (1.6-2.3) mg/dL Total Bilirubin (0.2-1.3) mg/dL AST (14-36) U/L ALT (9-52) U/L Alkaline Phosphatase (38-126) U/L Creatine Kinase (30-135) U/L Total Protein (6.3-8.2) g/dL Albumin (3.5-5.0) g/dL TSH (0.465-4.680) mIU/L Influenza Type A RNA (Not Detectd) Influenza Type B (PCR) (Not Detectd) Disposition Clinical Impression: UTI (urinary tract infection), Dehydration, TIMMY (acute kidney injury) Disposition: ADMITTED IP TO THIS HOSP Condition: Stable
[2019-07-14] MEDS ORDERED: SODIUM CHLORIDE 0.9% 1,000 ML IV STA (23:45)
[2019-07-15 00:20] LABS: Basophils % (A) 0 %; Eosinophils % (A) 0 %; HCT 31.4 % (34.0-46.0); HGB 10.5 gm/dL (11.4-16.0); Lymphocytes # (A) 0.4 k/uL (1.0-4.8); Lymphocytes % (A) 3 %; MCH 32.7 pg (25.0-35.0); MCHC 33.2 g/dL (31.0-37.0); MCV 98.4 fL (80.0-100.0); Monocytes # (A) 0.8 k/uL (0-1.0); Monocytes % (A) 5 %; Neutrophils % (A) 91 %; Platelet Count 240 k/uL (150-450); RDW 14.1 % (11.5-15.5); WBC 15.4 k/uL (3.8-10.6)
[2019-07-15 00:22] LABS: Calcium 8.9 mg/dL (8.4-10.2); Magnesium 1.6 mg/dL (1.6-2.3); Potassium 4.2 mmol/L (3.5-5.1); Total Bilirubin 1.2 mg/dL (0.2-1.3); Total Protein 6.6 g/dL (6.3-8.2)
--- NOTE | 2019-07-15 00:24 | XR ---
EXAMINATION TYPE: XR chest 2V DATE OF EXAM: 07/15/2019 COMPARISON: 11/06/2018 HISTORY: Weakness TECHNIQUE: Frontal and lateral views of the chest are obtained. FINDINGS: Heart and mediastinum are normal. Lungs are clear of consolidation. There is no pleural ef fusion. Bony thorax is intact. There are chest leads. IMPRESSION: No active cardiopulmonary disease. Normal heart. No change.
[2019-07-15] MEDS ORDERED: NALOXONE 0.4 MG/ML 1 ML VIAL IV PRN (00:42)
[2019-07-15 01:06] LABS: Appearance,Urine Cloudy (Clear); Bacteria,Urine Many /hpf; Bilirubin,Urine Negative (Negative); Blood,Urine Moderate (Negative); Color,Urine Yellow; Glucose,Urine (UA) Negative (Negative); Ketones,Urine Negative (Negative); Leukocyte Esterase,Urine Large (Negative); Mucus,Urine Rare /hpf; Nitrite,Urine Positive (Negative); PH, Urine 5.5 (5.0-8.0); Protein,Urine 1+ (Negative); RBC,Urine 16 /hpf (0-5); Specific Gravity,Urine 1.019 (1.001-1.035); Squamous Epithelial Cell,Urine <1 /hpf (0-4); Urobilinogen,Urine <2.0 mg/dL (<2.0); WBC,Urine >182 /hpf (0-5)
[2019-07-15] MEDS: SODIUM CHLORIDE 0.9% 1,000 ML IV SCH ×4 (01:10→20:43)
[2019-07-15 04:01] LABS: Glucose,Whole Blood 116 mg/dL (75-99)
[2019-07-15] MEDS ORDERED: ONDANSETRON 4 MG/2 ML VIAL IVP PRN (06:54)
[2019-07-15] MEDS ORDERED: ONDANSETRON 4 MG/2 ML VIAL ONE (06:56)
[2019-07-15] MEDS: ACETAMINOPHEN TAB 325 MG TAB PO PRN (09:00)
[2019-07-15] MEDS: PANTOPRAZOLE 40 MG TABLET PO SCH (09:00)
[2019-07-15] MEDS: glipiZIDE 5 MG TAB PO SCH ×2 (09:00→20:46)
[2019-07-15] MEDS: FAMOTIDINE 20 MG/2 ML VIAL IV SCH (09:00)
[2019-07-15] MEDS: oxyCODONE-APAP 7.5-325MG 1 EACH TAB PO PRN ×2 (10:10→18:12)
[2019-07-15 11:29] LABS: Glucose,Whole Blood 196 mg/dL (75-99)
--- NOTE | 2019-07-15 14:56 | P.HPIM ---
History of Present Illness H&P Date: 07/15/19 Chief Complaint: Generalized weakness Ms. Vail is a 74-year-old female with a past medical history of diabetes mellitus, rheumatic, hypertension, hyperlipidemia, osteoarthritis, chronic low back pain, diabetic neuropathy coming into the hospital with a chief complaint of generalized weakness. Patient states that she was seen by her primary care physician Dr. Edy Nelson couple of days back for UTI-like symptoms. She was sent home on antibiotics. Patient states that she took her dose of antibiotic but did not see much improvement. Patient continued to have gen eralized weakness and myalgias and last night when she was trying to get out of the bed she felt too weak and rolled onto the floor. She was not able to get herself off the floor and so she called 911 for help. Patient states that she has been feeling sick for the past few days and thought she was having the flu. She was having fevers with chills and myalgias. Patient also reports decreased by mouth intake for the past couple of days. She denies having any abdominal pain nausea vomiting or diarrhea. She has mild dysuria. No hematuria. Denies having any lower abdominal pain or flank pain. Patient denies having any lower extremity swelling, no chest pain, no palpitations or difficulty in breathing. In the emergency department patient had labs drawn showing a white count elevated at 15.4, elevated creatinine at 1.48 and urine analysis was positive for nitrates and moderate blood and large leukocyte esterase with more than 182 WBCs. Urine cultures were obtained and patient was given a dose of ceftriaxone in the ED and admitted for further management. Review of Systems REVIEW OF SYSTEMS: PSYCH: No anxiety or depression NEURO:No c/o weakness of the extremties, No facial droop, No speech abnormalities. VASCULAR: Peripheral nervous system within the normal limits no edema HEMATOLOGIC: No history of easy bleeding and bruising . No recent infections . RESPIRATORY: No cough, No SOB, No chest discomfort. IMMUNE: No infections INTEGUMENT: no rashes OPHTHALMOLOGIC: No blurry vision and no eye discharge : As per HPI INSTALLER SOFT TOP: No bleeding PV CARDIAC: No chest pain , shortness of breath , paroxysmal nocturnal dyspnea MUSCULOSKELETAL : Generalized weakness and myalgia GI: No abdominal pain, Nausea or vomiting. No constipation or diarrhea. All 13 review of systems are negative except for the ones mentioned above. Past Medical History Past Medical History: Diabetes Mellitus, Fibromyalgia, Hyperlipidemia, Hypertension, Osteoarthritis (OA), Renal Disease Additional Past Medical History / Comment(s): NIDDM type II, neuropathy in hands and feet bilaterally, chronic low back and leg pain. History of Any Multi-Drug Resistant Organisms: None Reported Past Surgical History: Cholecystectomy Additional Past Surgical History / Comment(s): D & C, right hand tendon surgery, low back injections, pain procedures. Past Anesthesia/Blood Transfusion Reactions: No Reported Reaction Past Psychological History: Anxiety, Depression Additional Psychological History / Comment(s): Pt. resides alone. She ambulates with a walker. She does not drive, [place] friends or bus. Smoking Status: Former smoker Past Alcohol Use History: None Reported Additional Past Alcohol Use History / Comment(s): Pt. started smoking as a teen and quit in 1987. Past Drug Use History: None Reported - Past Family History Father Family Medical History: Cancer Additional Family Medical History / Comment(s): Pt states her family was estranged from her. She knows her father had cancer but not what type. Mother History Unknown: Yes Medications and Allergies Home Medications Medication Instructions Recorded Confirmed Type Ergocalciferol [Vitamin D2 50,000 unit PO TU 08/09/15 07/15/19 History (DRISDOL)] oxyCODONE HCL/ACETAMINOPHEN 1 tab PO TID PRN 03/24/17 07/15/19 History [Percocet 7.5-325 mg] glipiZIDE XL [Glucotrol XL] 5 mg PO DAILY 11/06/18 07/15/19 History Ferrous Sulfate [Iron (65 MG 325 mg PO BID 30 Days #60 tab 11/10/18 07/15/19 Rx Elemental)] Atorvastatin [Lipitor] 40 mg PO MO 07/15/19 07/15/19 History Cephalexin [Keflex] 1,000 mg PO Q12HR 07/15/19 07/15/19 History Furosemide [Lasix] 20 mg PO DAILY 07/15/19 07/15/19 History Lisinopril 20 mg PO DAILY 07/15/19 07/15/19 History Allergies Allergy/AdvReac Type Severity Reaction Status Date / Time glimepiride Allergy Mild Unknown Verified 07/15/19 08:38 ibuprofen Allergy Unknown Verified 07/15/19 08:38 metformin Allergy Unknown Verified 07/15/19 08:38 [id number]-[id number]-Pfr Reductase Allergy Unknown Verified 07/15/19 08:38 Inhibitor Sulfa (Sulfonamide Allergy Unknown Verified 07/15/19 08:38 Antibiotics) tizanidine AdvReac LOW BLOOD Verified 07/15/19 08:38 PRESSURE/SLEEPY Physical Exam Vitals: Vital Signs Temp Pulse Pulse Resp BP BP Pulse Ox 07/15/19 14:24 98.1 F 68 19 99/63 96 07/15/19 07:00 100.6 F H 89 20 124/67 96 07/15/19 04:30 98.1 F 84 28 H 129/76 92 L 07/15/19 02:00 69 20 124/64 98 07/15/19 01:30 78 18 117/60 96 07/15/19 01:00 74 20 114/40 95 07/15/19 00:30 70 20 123/61 95 07/14/19 23:38 98.1 F 76 18 131/59 94 L Intake and Output 07/14/19 07/15/19 07/15/19 22:59 06:59 14:59 Intake Total 500 Balance 500 Intake: Intake, IV Titration 500 Amount Sodium Chloride 0.9% 1, 500 000 ml @ 150 mls/hr IV . Q6H40M [facility] Rx#:[id number] Other: Voiding Method Bedpan # Voids 1 2 Weight 113.398 kg GEN. APPEARANCE: Sitting up in a chair by the bedside. Appears to be no acute distress. HEAD EXAM: atraumatic, normocephalic, normal inspection EYE EXAM: No pallor. No icterus. PERRLA. ENT EXAM: normal exam, mucous membranes moist NECK EXAM: No thyromegaly. RESPIRATORY EXAM: Bilateral breath sounds positive. No wheeze or crackles. CARDIOVASCULAR EXAM: S1-S2 heard. No additional sounds. GI/ABDOMINAL EXAM: soft, normal bowel sounds. No tenderness guarding or rigidity. EXTREMITIES EXAM: No edema. No calf tenderness. BACK EXAM: No CVA tenderness NEUROLOGICAL EXAM: alert, oriented X3, no focal neurological deficits. PSYCHIATRIC EXAM: normal affect, normal mood SKIN EXAM: no rash Results CBC & Chem 7: 07/14/19 23:54 07/14/19 23:54 Labs: Abnormal Lab Results - Last 24 Hours (Table) 07/14/19 07/14/19 07/15/19 Range/Units 23:54 23:54 00:51 WBC 15.4 H (3.8-10.6) k/uL RBC 3.20 L (3.80-5.40) m/uL Hgb 10.5 L (11.4-16.0) gm/dL Hct 31.4 L (34.0-46.0) % Neutrophils # 14.0 H (1.3-7.7) k/uL Lymphocytes # 0.4 L (1.0-4.8) k/uL BUN 23 H (7-17) mg/dL Creatinine 1.48 H (0.52-1.04) mg/dL Glucose 137 H (74-99) mg/dL POC Glucose (mg/dL) (75-99) mg/dL Creatine Kinase 192 H (30-135) U/L Urine Appearance Cloudy H (Clear) Urine Protein 1+ H (Negative) Urine Blood Moderate H (Negative) Urine Nitrite Positive H (Negative) Ur Leukocyte Esterase Large H (Negative) Urine RBC 16 H (0-5) /hpf Urine WBC >182 H (0-5) /hpf Urine WBC Clumps Many H (None) /hpf Urine Bacteria Many H (None) /hpf Urine Mucus Rare H (None) /hpf 07/15/19 07/15/19 Range/Units 04:00 11:27 WBC (3.8-10.6) k/uL RBC (3.80-5.40) m/uL Hgb (11.4-16.0) gm/dL Hct (34.0-46.0) % Neutrophils # (1.3-7.7) k/uL Lymphocytes # (1.0-4.8) k/uL BUN (7-17) mg/dL Creatinine (0.52-1.04) mg/dL Glucose (74-99) mg/dL POC Glucose (mg/dL) 116 H 196 H (75-99) mg/dL Creatine Kinase (30-135) U/L Urine Appearance (Clear) Urine Protein (Negative) Urine Blood (Negative) Urine Nitrite (Negative) Ur Leukocyte Esterase (Negative) Urine RBC (0-5) /hpf Urine WBC (0-5) /hpf Urine WBC Clumps (None) /hpf Urine Bacteria (None) /hpf Urine Mucus (None) /hpf Microbiology - Last 24 Hours (Table) 07/15/19 00:51 Urine Culture - Preliminary Urine,Catheterized Thrombosis Risk Factor Assmnt - Choose All That Apply Each Risk Factor Represents 2 Points: Age 61-74 years Thrombosis Risk Factor Assessment Total Risk Factor Score: 2 Thrombosis Risk Factor Assessment Level: Low Risk Assessment and Plan Assessment: ASSESSMENT Sepsis secondary to UTI Acute kidney injury due to #1 Type 2 diabetes mellitus Diabetic neuropathy Fibromyalgia Hypertension Hyperlipidemia Multiple joint osteoarthritis Chronic low back pain History of anxiety with depression PLAN: Patient was given a dose of ceftriaxone for urinary tract infection in the ED. Patient had a temperature of 100.7 this morning. So we will get blood cultures. Continue with ceftriaxone until urine cultures are back. Continue with IV fluids at the rate of 1 25 mL/h for her acute kidney injury. We will hold off her blood pressure medications - Lasix and lisinopril due to acute kidney injury for now. Recommendations to follow depending on the progress of the patient.
[2019-07-15 16:21] LABS: Glucose,Whole Blood 133 mg/dL (75-99)
[2019-07-15] MEDS: INSULIN ASPART (NovoLOG) 100 UNIT/ML VIAL SQ SCH ×3 (16:54→20:44)
[2019-07-15 20:20] LABS: Glucose,Whole Blood 83 mg/dL (75-99)
[2019-07-16 01:47] LABS: Glucose,Whole Blood 82 mg/dL (75-99)
[2019-07-16] MEDS: SODIUM CHLORIDE 0.9% 1,000 ML IV SCH ×4 (02:55→20:37)
[2019-07-16] MEDS: oxyCODONE-APAP 7.5-325MG 1 EACH TAB PO PRN ×2 (05:25→20:34)
[2019-07-16 06:16] LABS: Basophils % (A) 0 %; Eosinophils # (A) 0.1 k/uL (0-0.7); Eosinophils % (A) 1 %; HCT 29.6 % (34.0-46.0); HGB 9.6 gm/dL (11.4-16.0); Lymphocytes # (A) 0.4 k/uL (1.0-4.8); Lymphocytes % (A) 4 %; MCHC 32.6 g/dL (31.0-37.0); MCV 101.1 fL (80.0-100.0); Macrocytosis Slight; Mean Platelet Volume 7.9; Monocytes # (A) 0.4 k/uL (0-1.0); Monocytes % (A) 4 %; Neutrophils # (A) 9.7 k/uL (1.3-7.7); Neutrophils % (A) 91 %; Platelet Count 179 k/uL (150-450); RBC 2.93 m/uL (3.80-5.40); RDW 14.3 % (11.5-15.5); WBC 10.6 k/uL (3.8-10.6)
[2019-07-16 06:29] LABS: Potassium 4.3 mmol/L (3.5-5.1)
[2019-07-16 07:15] LABS: Glucose,Whole Blood 111 mg/dL (75-99)
[2019-07-16 09:35] LABS: Glucose,Whole Blood 158 mg/dL (75-99)
[2019-07-16] MEDS ORDERED: ACETAMINOPHEN IV (For NPO) 1,000 MG in EMPTY BAG 1 BAG IVPB ONE (09:56)
[2019-07-16] MEDS ORDERED: LORazepam 2 MG/ML INJ IV STA (10:03)
--- NOTE | 2019-07-16 10:04 | XR ---
EXAMINATION TYPE: XR chest 1V portable DATE OF EXAM: 07/16/2019 HISTORY: sob. REFERENCE: Previous study dated 07/15/2019. FINDINGS: The heart is mildly enlarged. There is vascular congestion and pulmonary edema. I could not exclude small effusions. IMPRESSION: WORSENING CHANGES OF PULMONARY EDEMA.
[2019-07-16] MEDS ORDERED: FUROSEMIDE 10 MG/ML 4 ML VIAL IV STA (10:06)
[2019-07-16 10:09] LABS: ABG Base Excess -2.1 mmol/L; ABG HCO3 23 mmol/L (21-25); ABG PCO2 36 mmHg (35-45); ABG PH 7.41 (7.35-7.45); ABG PO2 304 mmHg (83-108); ABG TCO2 24 mmol/L (19-24); Allen Test Performed? Yes
[2019-07-16] MEDS: glipiZIDE 5 MG TAB PO SCH ×2 (10:25→20:36)
[2019-07-16] MEDS: PANTOPRAZOLE 40 MG TABLET PO SCH (10:26)
[2019-07-16] MEDS: FAMOTIDINE 20 MG/2 ML VIAL IV SCH (10:26)
[2019-07-16] MEDS: ACETAMINOPHEN TAB 325 MG TAB PO PRN (10:26)
[2019-07-16] MEDS: INSULIN ASPART (NovoLOG) 100 UNIT/ML VIAL SQ SCH ×4 (10:31→20:36)
--- NOTE | 2019-07-16 11:35 | P.PN ---
Subjective Progress Note Date: 07/16/19 Principal diagnosis: Sepsis secondary to UTI Ms. Vail is a 74-year-old female with a past medical history of diabetes mellitus, rheumatic, hypertension, hyperlipidemia, osteoarthritis, chronic low back pain, diabetic neuropathy coming into the hospital with a chief complaint of generalized weakness. Patient states that she was seen by her primary care physician Dr. Edy Nelson couple of days back for UTI-like symptoms. She was sent home on antibiotics. Patient states that she took her dose of antibiotic but did not see much improvement. Patient continued to have g eneralized weakness and myalgias and last night when she was trying to get out of the bed she felt too weak and rolled onto the floor. She was not able to get herself off the floor and so she called 911 for help. Patient states that she has been feeling sick for the past few days and thought she was having the flu. She was having fevers with chills and myalgias. Patient also reports decreased by mouth intake for the past couple of days. In the emergency department patient had labs drawn showing a white count elevated at 15.4, elevated creatinine at 1.48 and urine analysis was positive for nitrates and moderate blood and large leukocyte esterase with more than 182 WBCs. Urine cultures were obtained and patient was given a dose of ceftriaxone in the ED and admitted for further management. On 07/16/2019 - this morning patient was very short of breath and the nurse found her to be turning blue when she went into her room around 9:00 this morning. So the patient was placed on a nonrebreather. Patient was very anxious and was gasping for breath. She denied having any chest pain. She said that it was very difficult for her to take a breath. Patient denied having any loss of consciousness. Nursing staff reported the patient was shaking a lot. There was no slurring of speech, weakness of her extremities. She denied having any swelling of her lower extremities. On reviewing the patient's vitals her blood pressure was 155/ 95, heart rate was 70's, respiratory rate rate around 19/m and saturating at 99% on a nonrebreather. So a chest x-ray and ABGs were done. Active Medications Acetaminophen (Tylenol Tab) 650 mg PO Q6HR PRN PRN Reason: Mild Pain or Fever > 100.5 Last Admin: 07/16/19 10:26 Dose: 650 mg Documented by: Atorvastatin Calcium (Lipitor) 40 mg PO MO [facility] Famotidine (Pepcid) 20 mg IV Q24HR [facility] Last Admin: 07/16/19 10:26 Dose: 20 mg Documented by: Glipizide (Glucotrol) 2.5 mg PO BID [facility] Last Admin: 07/16/19 10:25 Dose: 2.5 mg Documented by: Sodium Chloride (Saline 0.9%) 1,000 mls @ 150 mls/hr IV .Q6H40M [facility] Last Admin: 07/16/19 02:55 Dose: 150 mls/hr Documented by: Ceftriaxone Sodium 1 gm/ (Sodium Chloride) 50 mls @ 100 mls/hr IVPB Q24H [facility] Last Admin: 07/16/19 05:26 Dose: 100 mls/hr Documented by: Insulin Aspart (Novolog) 0 unit SQ ACHS [facility]; Protocol Last Admin: 07/16/19 10:31 Dose: Not Given Documented by: Naloxone HCl (Narcan) 0.2 mg IV Q2M PRN PRN Reason: Opioid Reversal Ondansetron HCl (Zofran) 4 mg IVP Q6HR PRN PRN Reason: Nausea And Vomiting Last Admin: 07/15/19 06:57 Dose: 4 mg Documented by: Oxycodone/Acetaminophen (Percocet 7.5-325) 1 each PO TID PRN PRN Reason: Pain Last Admin: 07/16/19 05:25 Dose: 1 each Documented by: Pantoprazole Sodium (Protonix) 40 mg PO AC-BRKFST [facility] Last Admin: 07/16/19 10:26 Dose: 40 mg Documented by: Objective - Vital Signs Vital signs: Vital Signs Temp 98.1 F 07/16/19 07:00 Pulse 77 07/16/19 07:00 Resp 16 07/16/19 07:00 BP 127/72 07/16/19 07:00 Pulse Ox 93 L 07/16/19 07:00 Intake & Output 07/15/19 07/16/19 07/16/19 18:59 06:59 18:59 Output Total 250 Balance -250 Output: Urine 250 Other: # Voids 2 1 - Exam GEN. APPEARANCE: Sitting up in a chair by the bedside. Was on a nonrebreather. HEAD EXAM: atraumatic, normocephalic, normal inspection EYE EXAM: No pallor. No icterus. PERRLA. ENT EXAM: normal exam, mucous membranes moist NECK EXAM: No thyromegaly. RESPIRATORY EXAM: Positive for bilateral lower lobe crackles. CARDIOVASCULAR EXAM: S1-S2 heard. No additional sounds. GI/ABDOMINAL EXAM: soft, normal bowel sounds. No tenderness guarding or ri gidity. EXTREMITIES EXAM: No edema. No calf tenderness. BACK EXAM: No CVA tenderness NEUROLOGICAL EXAM: alert, oriented X3, no focal neurological deficits. PSYCHIATRIC EXAM: normal affect, normal mood SKIN EXAM: no rash - Labs CBC & Chem 7: 07/16/19 05:30 07/16/19 05:30 Labs: Abnormal Lab Results - Last 24 Hours (Table) 07/15/19 07/15/19 07/16/19 Range/Units 11:27 16:18 05:30 RBC 2.93 L (3.80-5.40) m/uL Hgb 9.6 L (11.4-16.0) gm/dL Hct 29.6 L (34.0-46.0) % MCV 101.1 H (80.0-100.0) fL Neutrophils # 9.7 H (1.3-7.7) k/uL Lymphocytes # 0.4 L (1.0-4.8) k/uL D-Dimer (<0.60) mg/L FEU ABG pO2 (83-108) mmHg ABG O2 Saturation (94-97) % BUN (7-17) mg/dL Creatinine (0.52-1.04) mg/dL Glucose (74-99) mg/dL POC Glucose (mg/dL) 196 H 133 H (75-99) mg/dL Calcium (8.4-10.2) mg/dL 07/16/19 07/16/19 07/16/19 Range/Units 05:30 07:13 09:32 RBC (3.80-5.40) m/uL Hgb (11.4-16.0) gm/dL Hct (34.0-46.0) % MCV (80.0-100.0) fL Neutrophils # (1.3-7.7) k/uL Lymphocytes # (1.0-4.8) k/uL D-Dimer (<0.60) mg/L FEU ABG pO2 (83-108) mmHg ABG O2 Saturation (94-97) % BUN 34 H (7-17) mg/dL Creatinine 1.95 H (0.52-1.04) mg/dL Glucose 101 H (74-99) mg/dL POC Glucose (mg/dL) 111 H 158 H (75-99) mg/dL Calcium 8.0 L (8.4-10.2) mg/dL 07/16/19 07/16/19 Range/Units 09:53 10:33 RBC (3.80-5.40) m/uL Hgb (11.4-16.0) gm/dL Hct (34.0-46.0) % MCV (80.0-100.0) fL Neutrophils # (1.3-7.7) k/uL Lymphocytes # (1.0-4.8) k/uL D-Dimer 2.33 H (<0.60) mg/L FEU ABG pO2 304 H (83-108) mmHg ABG O2 Saturation 100.0 H (94-97) % BUN (7-17) mg/dL Creatinine (0.52-1.04) mg/dL Glucose (74-99) mg/dL POC Glucose (mg/dL) (75-99) mg/dL Calcium (8.4-10.2) mg/dL Microbiology - Last 24 Hours (Table) 07/14/19 23:55 Blood Culture - Preliminary Blood No Growth after 24 hours 07/15/19 00:51 Urine Culture - Preliminary Urine,Catheterized Assessment and Plan Assessment: ASSESSMENT Sepsis secondary to UTI Acute kidney injury due to #1 Type 2 diabetes mellitus Diabetic neuropathy Fibromyalgia Hypertension Hyperlipidemia Multiple joint osteoarthritis Chronic low back pain History of anxiety with depression PLAN: As the patient was having difficulty in breathing, chest x-ray was obtained which was showing pulmonary vascular congestion. Patient was given a dose of IV Lasix 40 mg. ABGs were obtained showing pH of 7.41, pCO2 36 and pO2 304, bicarb of 23. After the Lasix and a breathing treatment patient felt much better. Will order an echocardiogram to look for ejection fraction. Continue with ceftriaxone for her UTI. Blood cultures and urine cultures are currently in process, no growth as of now. We will hold off on IV fluids for now. Will repeat BMP. Further recommendations to follow depending on the progress of the patient.
[2019-07-16 12:20] LABS: Glucose,Whole Blood 125 mg/dL (75-99)
[2019-07-16 16:47] LABS: Glucose,Whole Blood 126 mg/dL (75-99)
[2019-07-16 17:27] LABS: Potassium 4.1 mmol/L (3.5-5.1)
[2019-07-16 20:47] LABS: Glucose,Whole Blood 97 mg/dL (75-99)
[2019-07-16] MEDS ORDERED: ENOXAPARIN 30 MG/0.3 ML SYRINGE SQ SCH (23:45)
[2019-07-17 02:33] VITALS: RESP 16
[2019-07-17] MEDS: SODIUM CHLORIDE 0.9% 1,000 ML IV SCH (05:06)
[2019-07-17] MEDS: oxyCODONE-APAP 7.5-325MG 1 EACH TAB PO PRN (05:06)
[2019-07-17 06:48] LABS: Glucose,Whole Blood 118 mg/dL (75-99)
[2019-07-17 07:16] LABS: Calcium 7.9 mg/dL (8.4-10.2); Potassium 4.7 mmol/L (3.5-5.1)
[2019-07-17 07:19] LABS: Basophils % (A) 0 %; Eosinophils # (A) 0.2 k/uL (0-0.7); Eosinophils % (A) 2 %; HCT 27.4 % (34.0-46.0); HGB 9.1 gm/dL (11.4-16.0); Lymphocytes # (A) 0.8 k/uL (1.0-4.8); Lymphocytes % (A) 9 %; MCHC 33.3 g/dL (31.0-37.0); MCV 99.1 fL (80.0-100.0); Mean Platelet Volume 8.5; Monocytes # (A) 0.4 k/uL (0-1.0); Monocytes % (A) 5 %; Neutrophils # (A) 7.1 k/uL (1.3-7.7); Neutrophils % (A) 82 %; Platelet Count 179 k/uL (150-450); RBC 2.77 m/uL (3.80-5.40); RDW 14.2 % (11.5-15.5); WBC 8.6 k/uL (3.8-10.6)
[2019-07-17 07:29] VITALS: BP 127/60; PULSE 67; TEMP 97.5
[2019-07-17] MEDS: glipiZIDE 5 MG TAB PO SCH (08:24)
[2019-07-17] MEDS: INSULIN ASPART (NovoLOG) 100 UNIT/ML VIAL SQ SCH (08:25)
[2019-07-17] MEDS: PANTOPRAZOLE 40 MG TABLET PO SCH (08:25)
[2019-07-17] MEDS ORDERED: FUROSEMIDE 20 MG TAB PO SCH (09:00)
[2019-07-17] MEDS ORDERED: ATORVASTATIN 40 MG TAB PO SCH (09:00)
--- NOTE | 2019-07-17 09:12 | P.DS ---
Providers Date of admission: 07/15/19 00:45 Expected date of discharge: 07/17/19 Attending physician: Shukri Neves MD Primary care physician: Medina Snow - Discharge Diagnosis(es) (1) TIMMY (acute kidney injury) Current Visit: Yes Status: Acute (2) UTI (urinary tract infection) Current Visit: Yes Status: Acute (3) Acute renal failure Current Visit: No Status: Acute (4) Rhabdomyolysis Current Visit: No Status: Acute (5) Weakness Current Visit: No Status: Acute Hospital Course: Ms. Vail is a 74-year-old female with a past medical history of diabetes mellitus, rheumatic, hypertension, hyperlipidemia, osteoarthritis, chronic low back pain, diabetic neuropathy coming into the hospital with a chief complaint of generalized weakness. Patient states that she was seen by her primary care physician Dr. Edy Nelson couple of days back for UTI-like symptoms. She was sent home on antibiotics. Patient states that she took her dose of antibiotic but did not see much improvement. Patient continued to have generalized weakness and myalgias and last night when she was trying to get out of the bed she felt too weak and rolled onto the floor. She was not able to get herself off the floor and so she called 911 for help. Patient states that she has been feeling sick for the past few days and thought she was having the flu. She was having fevers with chills and myalgias. Patient also reports decreased by mouth intake for the past couple of days. In the emergency department patient had labs drawn showing a white count elevated at 15.4, elevated creatinine at 1.48 and urine analysis was positive for nitrates and moderate blood and large leukocyte esterase with more than 182 WBCs. Urine cultures were obtained and patient was given a dose of ceftriaxone in the ED and admitted for further management. On 07/16/2019 - this morning patient was very short of breath and the nurse found her to be turning blue when she went into her room around 9:00 this morning. So the patient was placed on a nonrebreather. Patient was very anxious and was gasping for breath. She denied having any chest pain. She said that it was very difficult for her to take a breath. Patient denied having any loss of consciousness. Nursing staff reported the patient was shaking a lot. There was no slurring of speech, weakness of her extremities. She denied having any swelling of her lower extremities. On reviewing the patient's vitals her blood pressure was 155/ 95, heart rate was 70's, respiratory rate rate around 19/m and saturating at 99% on a nonrebreather. So a chest x-ray and ABGs were done. This showed some venous congestion so pt was given 40 mg lasix. On 07/17/2019 she was feeling back to her baseline. She reported some itching with urination but denies dysuria, frequency, or urgency. She is afebrile. SHe feels her strength and balance are returned to her baseline. Pt's urine culture with e coli sensitive to cephalosporins and pt switched to ceftin. She is resumed on her home lasix 20 mg po. Pt is recommended to have a follow up echocardiogram as an outpatient. She is discharged in stable condition and will follow up with her PCP within 1 week. Discharge exam: Gen: well developed, well nourished, obese, NAD CV: RRR, no murmur. No edema Lungs: normal effort, clear throughout Neuro: alert and oriented x3 Patient Condition at Discharge: Stable Plan - Discharge Summary Discharge Rx Participant: No New Discharge Prescriptions: New Cefuroxime Axetil [Ceftin] 500 mg PO BID 4 Days #8 tab Continue Ergocalciferol [Vitamin D2 (DRISDOL)] 50,000 unit PO TU oxyCODONE HCL/ACETAMINOPHEN [Percocet 7.5-325 mg] 1 tab PO TID PRN PRN Reason: Pain glipiZIDE XL [Glucotrol XL] 5 mg PO DAILY Ferrous Sulfate [Iron (65 MG Elemental)] 325 mg PO BID 30 Days #60 tab Lisinopril 20 mg PO DAILY Furosemide [Lasix] 20 mg PO DAILY Atorvastatin [Lipitor] 40 mg PO MO Discontinued Cephalexin [Keflex] 1,000 mg PO Q12HR Discharge Medication List Ergocalciferol [Vitamin D2 (DRISDOL)] 50,000 unit PO TU 08/09/15 [History] oxyCODONE HCL/ACETAMINOPHEN [Percocet 7.5-325 mg] 1 tab PO TID PRN 03/24/17 [History] glipiZIDE XL [Glucotrol XL] 5 mg PO DAILY 11/06/18 [History] Ferrous Sulfate [Iron (65 MG Elemental)] 325 mg PO BID 30 Days #60 tab 11/10/18 [Rx] Atorvastatin [Lipitor] 40 mg PO MO 07/15/19 [History] Furosemide [Lasix] 20 mg PO DAILY 07/15/19 [History] Lisinopril 20 mg PO DAILY 07/15/19 [History] Cefuroxime Axetil [Ceftin] 500 mg PO BID 4 Days #8 tab 07/17/19 [Rx] Follow up Appointment(s)/Referral(s): Medina Snow DO [Primary Care Provider] - 1-2 days Discharge Disposition: HOME SELF-CARE
[2019-07-17 11:05] LABS: Glucose,Whole Blood 130 mg/dL (75-99)
--- NOTE | 2019-07-17 13:43 | ECHOF ---
Referral Reason:possible heart failure MEASUREMENTS -------- HEIGHT: 177.8 cm WEIGHT: 113.4 kg BP: 122/65 RVIDd: 3.5 cm (< 3.3) IVSd: 1.2 cm (0.6 - 1.1) LVIDd: 4.7 cm (3.9 - 5.3) LVPWd: 1.1 cm (0.6 - 1.1) IVSs: 1.5 cm LVIDs: 3.3 cm LVPWs: 2.0 cm LA Diam: 3.5 cm (2.7 - 3.8) LAESV Index (A-L): 27.83 ml/m Ao Diam: 3.2 cm (2.0 - 3.7) AV Cusp: 1.4 cm (1.5 - 2.6) MV EXCURSION: 18.807 mm (> 18.000) MV EF SLOPE: 160 mm/s (70 - 150) EPSS: 0.4 cm MV E Corky: 1.07 m/s MV DecT: 226 ms MV A Corky: 1.07 m/s MV E/A Ratio: 1.01 RAP: 15.00 mmHg RVSP: 45.07 mmHg TAPSE: 24.60 mm FINDINGS -------- Sinus rhythm. This was a technically good study. The left ventricular size is normal. There is borderline concentric left ventricular hypertrophy. Overall left ventricular systolic function is normal with, an EF between 60 - 65 %. The right ventricle is mildly enlarged. Normal LA size by volume 22+/-6 ml/m2. The right atrium is normal in size. Interatrial and interventricular septum intact. There is mild aortic valve sclerosis. There is trace mitral regurgitation. Mild tricuspid regurgitation present. There is mild pulmonary hypertension. The right ventricular systolic pressure, as measured by Doppler, is 45.07mmHg. Trace/mild (physiologic) pulmonic regurgitation. The aortic root size is normal. The inferior vena cava is dilated with poor inspiratory collapse which is consistent with estimated r ight atrial pressure of 15 mmHg. There is no pericardial effusion. CONCLUSIONS -------- 1. Sinus rhythm. 2. This was a technically good study. 3. The left ventricular size is normal. 4. There is borderline concentric left ventricular hypertrophy. 5. Overall left ventricular systolic function is normal with, an EF between 60 - 65 %. 6. The right ventricle is mildly enlarged. 7. Normal LA size by volume 22+/-6 ml/m2. 8. The right atrium is normal in size. 9. Interatrial and interventricular septum intact. 10. There is mild aortic valve sclerosis. 11. There is trace mitral regurgitation. 12. Mild tricuspid regurgitation present. 13. There is mild pulmonary hypertension. 14. The right ventricular systolic pressure, as measured by Doppler, is 45.07mmHg. 15. Trace/mild (physiologic) pulmonic regurgitation. 16. The aortic root size is normal. 17. The inferior vena cava is dilated with poor inspiratory collapse which is consistent with estimat ed right atrial pressure of 15 mmHg. 18. There is no pericardial effusion. SPEECH ASSISTANT: Monica Gore RDCS
--- NOTE | 2019-08-29 09:13 | CDI ---
Date: 08.29.19 CDS/Carbon Cleaner Name: Yelena Snyder Phone: If any questions, call Carlyn Ryan Testing Machine Operator at [phone] Patient Name: Jia Vail Admit Date: 07.15.19 Discharge Date: 07.17.12 ATTENTION: The [facility] Coding Staff appreciate your assistance in clarifying documentation. Please respond to the clarification below the line at the bottom and electronically sign. The [facility] Coding staff will review the response and follow-up if needed. Please note: Queries are made part of the Legal Health Record. If you have any questions, please contact the Testing Machine Operator. Dear Dr. Neves The patient came in with UTI, Dehydration, TIMMY from ER. The Progress Note says sepsis secondary to UTI. WBC on was 15.4, 07.16.19 was 10.6, 07.17.19 was 8.6 Lactic acid on 07.14.19 was 1.8, 07.16.19 was 0.8 Temp on 07.14.19 was 98.1, 07.15.19 was 98.1, 100.6, 98.1, and on 07.16.19 was 98.1 resp rate on 07.14.19 was 18, 07.15.19 ranged from18 to 28, 07.16.19 was 16 Please specify: Sepsis ruled in or ruled out Thank you for your kind consideration. Sepsis ruled in MTDD
== END 2019-07-17 13:20 | disposition home or self-care (01) ==
LOC: EC 23:32 → 4SSUR 07-15 00:45
PROVIDERS: ADMIT Family Medicine; ATTEND Family Medicine
DX: N17.9 Acute kidney failure, unspecified (principal); N39.0 Urinary tract infection, site not specified; A41.9 Sepsis, unspecified organism; M62.82 Rhabdomyolysis; J81.1 Chronic pulmonary edema; I08.3 Combined rheumatic disorders of mitral, aortic and tricuspid valves; I27.20 Pulmonary hypertension, unspecified; E11.42 Type 2 diabetes mellitus with diabetic polyneuropathy; M79.7 Fibromyalgia; E78.5 Hyperlipidemia, unspecified; I10 Essential (primary) hypertension; M89.49 Other hypertrophic osteoarthropathy, multiple sites; G89.29 Other chronic pain; M54.5 Low back pain; M79.606 Pain in leg, unspecified; F41.9 Anxiety disorder, unspecified; F32.9 Major depressive disorder, single episode, unspecified; E66.9 Obesity, unspecified; Z68.35 Body mass index [BMI] 35.0-35.9, adult; Z79.891 Long term (current) use of opiate analgesic; Z79.84 Long term (current) use of oral hypoglycemic drugs; Z79.899 Other long term (current) drug therapy; Z88.8 Allergy status to other drugs, medicaments and biological substances; Z88.6 Allergy status to analgesic agent; Z88.2 Allergy status to sulfonamides; Z90.49 Acquired absence of other specified parts of digestive tract; Z98.890 Other specified postprocedural states; Z87.891 Personal history of nicotine dependence; Z80.9 Family history of malignant neoplasm, unspecified
CPT/HCPCS: 96376; 96366; 96372; 96375 ×2; 96361; 96365; 99285; 36415; 36600; 93005; 93306; 85379; 83880; 80053; 80048 ×2; 82550; 82805; 83605 ×2; 83735; 84443; 85025 ×3; 86140; 81001; 87040 ×2; 87086; 87077; 87186; 87502; 71045; 71046; G0378 ×3; J2060; J1940; J2405; J0696 ×3; J1650

== ENCOUNTER 2020-07-11 14:34 | Emergency (ER) | payer MEDICARE ==
--- NOTE | 2020-07-11 15:19 | ED ---
Wound/Laceration HPI - General Chief Complaint: Wound/Laceration Stated Complaint: Right foot wound Time Seen by Provider: 07/11/20 15:05 Source: patient Mode of arrival: wheelchair Limitations: no limitations - History of Present Illness Initial Comments: Patient is 75-year-old female with history of diabetes presenting to the emergency Department chief complaint of a foot lesion. Patient states that she does not take care of her feet and now she has developed some lesions on both of her her big toes. States that she saw her primary care physician 3 days ago who prescribed antibiotics but she is yet to pick them up. States that yesterday she was walking around barefooted, outside on salted gravel and she's noticed the skin on her right big toe has partially come off. States there is no swelling or erythema around the toe. She was concerned because the toe looked "nasty". States her diabetes is otherwise well controlled but she also has diabetic neuropathy and has lost most of feeling in her feet. Denies any night sweats fevers or chills. She does not see a civil engineering drafter but has an appointment scheduled to see one within a week. - Related Data Home Medications Medication Instructions Recorded Confirmed Ergocalciferol [Vitamin D2 50,000 unit PO TU 08/09/15 07/15/19 (DRISDOL)] oxyCODONE HCL/ACETAMINOPHEN 1 tab PO TID PRN 03/24/17 07/15/19 [Percocet 7.5-325 mg] glipiZIDE XL [Glucotrol XL] 5 mg PO DAILY 11/06/18 07/15/19 Atorvastatin [Lipitor] 40 mg PO MO 07/15/19 07/15/19 Furosemide [Lasix] 20 mg PO DAILY 07/15/19 07/15/19 lisinopriL 20 mg PO DAILY 07/15/19 07/15/19 Previous Rx's Medication Instructions Recorded Ferrous Sulfate [Iron (65 MG 325 mg PO BID 30 Days #60 tab 11/10/18 Elemental)] Cefuroxime Axetil [Ceftin] 500 mg PO BID 4 Days #8 tab 07/17/19 Allergies Allergy/AdvReac Type Severity Reaction Status Date / Time glimepiride Allergy Mild Unknown Verified 07/11/20 15:03 ibuprofen Allergy Unknown Verified 07/11/20 15:03 metformin Allergy Unknown Verified 07/11/20 15:03 Acmieeu-Abh-Ejl Reductase Allergy Unknown Verified 07/11/20 15:03 Inhibitor Sulfa (Sulfonamide Allergy Unknown Verified 07/11/20 15:03 Antibiotics) tizanidine AdvReac LOW BLOOD Verified 07/11/20 15:03 PRESSURE/SLEEPY Review of Systems ROS Statement: Those systems with pertinent positive or pertinent negative responses have been documented in the HPI. ROS Other: All systems not noted in ROS Statement are negative. Past Medical History Past Medical History: Diabetes Mellitus, Fibromyalgia, Hyperlipidemia, Hypertension, Osteoarthritis (OA), Renal Disease Additional Past Medical History / Comment(s): NIDDM type II, neuropathy in hands and feet bilaterally, chronic low back and leg pain. History of Any Multi-Drug Resistant Organisms: None Reported Past Surgical History: Cholecystectomy Additional Past Surgical History / Comment(s): D & C, right hand tendon surgery, low back injections, pain procedures. Past Anesthesia/Blood Transfusion Reactions: No Reported Reaction Past Psychological History: Anxiety, Depression Smoking Status: Never smoker Past Alcohol Use History: None Reported Past Drug Use History: None Reported - Past Family History Father Family Medical History: Cancer Additional Family Medical History / Comment(s): Pt states her family was estranged from her. She knows her father had cancer but not what type. Mother History Unknown: Yes General Exam Limitations: no limitations General appearance: alert, in no apparent distress, obese Head exam: Present: atraumatic, normocephalic, normal inspection Eye exam: Present: normal appearance, PERRL, EOMI Pupils: Present: normal accommodation ENT exam: Present: normal exam, normal oropharynx, mucous membranes moist, TM's normal bilaterally, normal external ear exam Neck exam: Present: normal inspection, full ROM. Absent: tenderness Respiratory exam: Present: normal lung sounds bilaterally. Absent: respiratory distress, wheezes, rales Cardiovascular Exam: Present: regular rate, normal rhythm, normal heart sounds. Absent: systolic murmur, diastolic murmur GI/Abdominal exam: Present: soft. Absent: distended, rebound Extremities exam: Present: full ROM, normal capillary refill, other (Palpable dorsalis pedis and posterior tibialis bilaterally.). Absent: normal inspection (Bilateral swelling in the lower extremities at baseline. No detectable lesion on the left big toe. Right big toe appears to have the epidermal layer of plantar skin has come off. No signs of erythema or significant swelling of the toe. No signs of diabetic ulcers.), tenderness, pedal edema, joint swelling, calf tenderness Back exam: Present: normal inspection, full ROM. Absent: tenderness, CVA tenderness (R), CVA tenderness (L) Neurological exam: Present: alert, oriented X3 Psychiatric exam: Present: normal affect, normal mood Skin exam: Present: warm, dry, intact, normal color Course Vital Signs 07/11/20 07/11/20 14:59 16:19 Temperature 99.3 F 97.8 F Pulse Rate 74 78 Respiratory 18 16 Rate Blood Pressure 118/70 138/79 O2 Sat by Pulse 97 96 Oximetry Medical Decision Making - Medical Decision Making 75-year-old female presenting to emergency Department with a chief complaint of lesions on her toes. On physical examination, patient does not appear to have a diabetic ulcer on her toes or feet. I was able to remove the excess skin. The foot was cleaned and a dressing was applied. Patient states that she is going to start the antibiotics that were prescribed by the primary care today. She also has an appointment scheduled to see a civil engineering drafter within one week. Strict return parameters were thoroughly discussed the patient was understanding and agreeable. Case discussed with physician. Disposition Clinical Impression: Wound of right foot Disposition: HOME SELF-CARE Condition: Stable Instructions (If sedation given, give patient instructions): Foot Care for People with Diabetes (ED), Diabetic Foot Ulcers (ED), Diabetes and Your Skin (ED) Additional Instructions: Follow-up with a civil engineering drafter or wound care. Take prescribed medication as directed. Return to emergency department if symptoms worsen. Is patient prescribed a controlled substance at d/c from ED?: No Referrals: Medina Snow DO [Primary Care Provider] - 1-2 days Time of Disposition: 16:08
[2020-07-11 16:21] VITALS: BP 138/79; PULSE 78; RESP 16; TEMP 97.8
== END 2020-07-11 16:19 | disposition home or self-care (01) ==
LOC: EC 14:34
DX: S91.301A Unspecified open wound, right foot, initial encounter (principal); M79.7 Fibromyalgia; E78.5 Hyperlipidemia, unspecified; I10 Essential (primary) hypertension; M19.90 Unspecified osteoarthritis, unspecified site; E11.42 Type 2 diabetes mellitus with diabetic polyneuropathy; G89.29 Other chronic pain; M54.5 Low back pain; Z79.84 Long term (current) use of oral hypoglycemic drugs; Z79.899 Other long term (current) drug therapy; Z88.8 Allergy status to other drugs, medicaments and biological substances; Z88.6 Allergy status to analgesic agent; Z88.2 Allergy status to sulfonamides; X58.XXXA Exposure to other specified factors, initial encounter
CPT/HCPCS: 99283

== ENCOUNTER 2021-02-19 18:12 | Emergency (ER) | payer MEDICARE ==
[2021-02-19] MEDS ORDERED: SODIUM CHLORIDE 0.9% 500 ML 500 ML IV STA (18:37)
[2021-02-19] MEDS ORDERED: diphenhydrAMINE 50 MG/ML 1 ML VIAL IVP STA (18:37)
--- NOTE | 2021-02-19 18:41 | ED ---
General Adult HPI - General Chief complaint: Shortness of Breath Stated complaint: possible allergic reaction, TRU Time Seen by Provider: 02/19/21 18:28 Source: patient Mode of arrival: EMS Limitations: no limitations - History of Present Illness Initial comments: 75-year-old female presents to emergency Department with a chief complaint of a possible ALLERGIC reaction. Patient reports 4 days ago she was started on daily dose of Myrbetriq for an overactive bladder. Patient reports she typically takes the medication at noon and has taken 4 out of 5 last days. States she has not skipped dose yesterday. States she began having some difficulty breathing when she started taking the medication and does not appear to be exertional dyspnea. She denies any associated chest pain with this.she also reports developing some nausea and diarrhea but no vomiting during this. She denies any associated abdominal or back pain. Denies any fevers or chills. She does report having some dysuria but denies any increased urgency or frequency. Denies any difficulty swallowing, talking or drooling. Denies any respiratory distress. - Related Data Home Medications Medication Instructions Recorded Confirmed Ergocalciferol [Vitamin D2 50,000 unit PO TU 08/09/15 07/15/19 (DRISDOL)] oxyCODONE HCL/ACETAMINOPHEN 1 tab PO TID PRN 03/24/17 07/15/19 [Percocet 7.5-325 mg] glipiZIDE XL [Glucotrol XL] 5 mg PO DAILY 11/06/18 07/15/19 Atorvastatin [Lipitor] 40 mg PO MO 07/15/19 07/15/19 Furosemide [Lasix] 20 mg PO DAILY 07/15/19 07/15/19 lisinopriL 20 mg PO DAILY 07/15/19 07/15/19 Previous Rx's Medication Instructions Recorded Ferrous Sulfate [Iron (65 MG 325 mg PO BID 30 Days #60 tab 11/10/18 Elemental)] Cefuroxime Axetil [Ceftin] 500 mg PO BID 4 Days #8 tab 07/17/19 Nitrofurantoin Monohyd/M-Cryst 100 mg PO Q12HR #14 cap 02/19/21 [Macrobid] Allergies Allergy/AdvReac Type Severity Reaction Status Date / Time glimepiride Allergy Mild Unknown Verified 07/11/20 15:03 ibuprofen Allergy Unknown Verified 07/11/20 15:03 metformin Allergy Unknown Verified 07/11/20 15:03 Fclmufo-Wut-Fwc Reductase Allergy Unknown Verified 07/11/20 15:03 Inhibitor Sulfa (Sulfonamide Allergy Unknown Verified 07/11/20 15:03 Antibiotics) tizanidine AdvReac LOW BLOOD Verified 07/11/20 15:03 PRESSURE/SLEEPY Review of Systems ROS Statement: Those systems with pertinent positive or pertinent negative responses have been documented in the HPI. ROS Other: All systems not noted in ROS Statement are negative. Past Medical History Past Medical History: Diabetes Mellitus, Fibromyalgia, Hyperlipidemia, Hyp ertension, Osteoarthritis (OA), Renal Disease Additional Past Medical History / Comment(s): NIDDM type II, neuropathy in hands and feet bilaterally, chronic low back and leg pain. History of Any Multi-Drug Resistant Organisms: None Reported Past Surgical History: Cholecystectomy Additional Past Surgical History / Comment(s): D & C, right hand tendon surgery, low back injections, pain procedures. Past Anesthesia/Blood Transfusion Reactions: No Reported Reaction Past Psychological History: Anxiety, Depression Smoking Status: Never smoker Past Alcohol Use History: None Reported Past Drug Use History: None Reported - Past Family History Father Family Medical History: Cancer Additional Family Medical History / Comment(s): Pt states her family was estranged from her. She knows her father had cancer but not what type. Mother History Unknown: Yes General Exam Limitations: no limitations General appearance: alert, in no apparent distress, obese Head exam: Present: atraumatic, normocephalic, normal inspection Eye exam: Present: normal appearance, PERRL, EOMI Pupils: Present: normal accommodation ENT exam: Present: normal exam, normal oropharynx, mucous membranes moist Neck exam: Present: normal inspection, full ROM. Absent: tenderness, lymphadenopathy Respiratory exam: Present: normal lung sounds bilaterally. Absent: respiratory distress Cardiovascular Exam: Present: regular rate, normal rhythm, normal heart sounds. Absent: systolic murmur GI/Abdominal exam: Present: soft. Absent: distended, tenderness, guarding, rebound, rigid Extremities exam: Present: normal inspection, full ROM. Absent: tenderness Back exam: Present: normal inspection, full ROM. Absent: tenderness Neurological exam: Present: alert, oriented X3 Psychiatric exam: Present: normal affect, normal mood Skin exam: Present: warm, dry, intact, normal color Course Vital Signs 02/19/21 02/19/21 18:25 18:31 Temperature 98.7 F Pulse Rate 77 Respiratory 18 20 Rate Blood Pressure 114/68 O2 Sat by Pulse 97 Oximetry Medical Decision Making - Medical Decision Making 75-year-old female presents to emergency Department with a chief complaint of a possible ALLERGIC reaction. On physical examination, patient is well-appearing. Vital signs within normal limits. No signs of respiratory distress. EKG is unremarkable. Patient has mild leukocytosis 12.2. CMP shows actually improvement in the renal function. UA positive for urinary tract infection with positive leukocyte esterase and white blood cells. Urine culture will be pending. I reviewed the most recent urine cultures which were positive for E. coli sensitive to Rocephin nitrofurantoin. Patient was given 1 g Rocephin and will be discharged with Macrobid. Patient otherwise feels well like to go home. Advised to follow up with the PCP. Otherwise it is stopped taking the medication that possibly may have caused her an ALLERGIC reaction. Case discussed with Dr. Coronado. - Lab Data Result diagrams: 02/19/21 19:15 02/19/21 19:15 Lab Results 02/19/21 02/19/21 02/19/21 Range/Units 19:15 19:15 19:15 WBC 12.2 H (3.8-10.6) k/uL RBC 3.82 (3.80-5.40) m/uL Hgb 12.3 (11.4-16.0) gm/dL Hct 39.0 (34.0-46.0) % MCV 102.2 H (80.0-100.0) fL MCH 32.1 (25.0-35.0) pg MCHC 31.4 (31.0-37.0) g/dL RDW 13.4 (11.5-15.5) % Plt Count 199 (150-450) k/uL MPV 7.4 Neutrophils % 84 % Lymphocytes % 11 % Monocytes % 3 % Eosinophils % 1 % Basophils % 0 % Neutrophils # 10.2 H (1.3-7.7) k/uL Lymphocytes # 1.3 (1.0-4.8) k/uL Monocytes # 0.3 (0-1.0) k/uL Eosinophils # 0.2 (0-0.7) k/uL Basophils # 0.0 (0-0.2) k/uL Macrocytosis Slight PT (9.0-12.0) sec INR (<1.2) APTT (22.0-30.0) sec Sodium 139 (137-145) mmol/L Potassium 5.0 (3.5-5.1) mmol/L Chloride 103 (98-107) mmol/L Carbon Dioxide 27 (22-30) mmol/L Anion Gap 9 mmol/L BUN 28 H (7-17) mg/dL Creatinine 1.34 H (0.52-1.04) mg/dL Est GFR (CKD-EPI)AfAm 45 (>60 ml/min/1.73 sqM) Est GFR (CKD-EPI)NonAf 39 (>60 ml/min/1.73 sqM) Glucose 128 H (74-99) mg/dL Calcium 9.3 (8.4-10.2) mg/dL Total Bilirubin 0.6 (0.2-1.3) mg/dL AST 26 (14-36) U/L ALT 18 (4-34) U/L Alkaline Phosphatase 70 (38-126) U/L Troponin I <0.012 (0.000-0.034) ng/mL Total Protein 6.7 (6.3-8.2) g/dL Albumin 4.1 (3.5-5.0) g/dL Urine Color Urine Appearance (Clear) Urine pH (5.0-8.0) Ur Specific Anderson (1.001-1.035) Urine Protein (Negative) Urine Glucose (UA) (Negative) Urine Ketones (Negative) Urine Blood (Negative) Urine Nitrite (Negative) Urine Bilirubin (Negative) Urine Urobilinogen (<2.0) mg/dL Ur Leukocyte Esterase (Negative) Urine RBC (0-5) /hpf Urine WBC (0-5) /hpf Ur Squamous Epith Cells (0-4) /hpf Urine Bacteria (None) /hpf Urine Mucus (None) /hpf 02/19/21 02/19/21 Range/Units 19:15 19:15 WBC (3.8-10.6) k/uL RBC (3.80-5.40) m/uL Hgb (11.4-16.0) gm/dL Hct (34.0-46.0) % MCV (80.0-100.0) fL MCH (25.0-35.0) pg MCHC (31.0-37.0) g/dL RDW (11.5-15.5) % Plt Count (150-450) k/uL MPV Neutrophils % % Lymphocytes % % Monocytes % % Eosinophils % % Basophils % % Neutrophils # (1.3-7.7) k/uL Lymphocytes # (1.0-4.8) k/uL Monocytes # (0-1.0) k/uL Eosinophils # (0-0.7) k/uL Basophils # (0-0.2) k/uL Macrocytosis PT 10.0 (9.0-12.0) sec INR 0.9 (<1.2) APTT 19.4 L (22.0-30.0) sec Sodium (137-145) mmol/L Potassium (3.5-5.1) mmol/L Chloride (98-107) mmol/L Carbon Dioxide (22-30) mmol/L Anion Gap mmol/L BUN (7-17) mg/dL Creatinine (0.52-1.04) mg/dL Est GFR (CKD-EPI)AfAm (>60 ml/min/1.73 sqM) Est GFR (CKD-EPI)NonAf (>60 ml/min/1.73 sqM) Glucose (74-99) mg/dL Calcium (8.4-10.2) mg/dL Total Bilirubin (0.2-1.3) mg/dL AST (14-36) U/L ALT (4-34) U/L Alkaline Phosphatase (38-126) U/L Troponin I (0.000-0.034) ng/mL Total Protein (6.3-8.2) g/dL Albumin (3.5-5.0) g/dL Urine Color Light Yellow Urine Appearance Cloudy H (Clear) Urine pH 5.0 (5.0-8.0) Ur Specific Anderson 1.004 (1.001-1.035) Urine Protein Negative (Negative) Urine Glucose (UA) Negative (Negative) Urine Ketones Negative (Negative) Urine Blood Negative (Negative) Urine Nitrite Negative (Negative) Urine Bilirubin Negative (Negative) Urine Urobilinogen <2.0 (<2.0) mg/dL Ur Leukocyte Esterase Large H (Negative) Urine RBC 2 (0-5) /hpf Urine WBC 30 H (0-5) /hpf Ur Squamous Epith Cells 2 (0-4) /hpf Urine Bacteria Many H (None) /hpf Urine Mucus Rare H (None) /hpf - EKG Data EKG Comments: Sinus rhythm, Q wave in lead 3 Ventricular rate 70, AR 150, QRS 86, QTC 393. Disposition Clinical Impression: Urinary tract infection Disposition: HOME SELF-CARE Condition: Stable Instructions (If sedation given, give patient instructions): Urinary Tract Infection in Women (DC) Additional Instructions: Please return to the Emergency Department if symptoms worsen or any other concerns. Prescriptions: Nitrofurantoin Monohyd/M-Cryst [Macrobid] 100 mg PO Q12HR #14 cap Is patient prescribed a controlled substance at d/c from ED?: No Referrals: Medina Snow DO [Primary Care Provider] - 1-2 days Time of Disposition: 21:05
[2021-02-19 19:24] LABS: Basophils % (A) 0 %; Eosinophils # (A) 0.2 k/uL (0-0.7); Eosinophils % (A) 1 %; HGB 12.3 gm/dL (11.4-16.0); Lymphocytes # (A) 1.3 k/uL (1.0-4.8); Lymphocytes % (A) 11 %; MCH 32.1 pg (25.0-35.0); MCHC 31.4 g/dL (31.0-37.0); MCV 102.2 fL (80.0-100.0); Macrocytosis Slight; Mean Platelet Volume 7.4; Monocytes # (A) 0.3 k/uL (0-1.0); Monocytes % (A) 3 %; Neutrophils # (A) 10.2 k/uL (1.3-7.7); Neutrophils % (A) 84 %; Platelet Count 199 k/uL (150-450); RBC 3.82 m/uL (3.80-5.40); RDW 13.4 % (11.5-15.5); WBC 12.2 k/uL (3.8-10.6)
[2021-02-19 19:45] LABS: Albumin 4.1 g/dL (3.5-5.0); Calcium 9.3 mg/dL (8.4-10.2); Total Bilirubin 0.6 mg/dL (0.2-1.3); Total Protein 6.7 g/dL (6.3-8.2)
[2021-02-19 19:49] LABS: Appearance,Urine Cloudy (Clear); Bacteria,Urine Many /hpf; Bilirubin,Urine Negative (Negative); Blood,Urine Negative (Negative); Color,Urine Light Yellow; Glucose,Urine (UA) Negative (Negative); Ketones,Urine Negative (Negative); Leukocyte Esterase,Urine Large (Negative); Mucus,Urine Rare /hpf; Nitrite,Urine Negative (Negative); Protein,Urine Negative (Negative); RBC,Urine 2 /hpf (0-5); Specific Gravity,Urine 1.004 (1.001-1.035); Squamous Epithelial Cell,Urine 2 /hpf (0-4); Urobilinogen,Urine <2.0 mg/dL (<2.0); WBC,Urine 30 /hpf (0-5)
[2021-02-19 19:50] LABS: INR 0.9 (<1.2)
[2021-02-19 19:52] LABS: Partial Thromboplastin Time 19.4 sec (22.0-30.0)
[2021-02-19] MEDS ORDERED: cefTRIAXone IN SWFI 1,000 MG/10 ML SYRINGE IVP STA (20:53)
--- NOTE | 2021-02-19 21:17 | XR ---
EXAMINATION TYPE: XR chest 2V DATE OF EXAM: 02/19/2021 COMPARISON: 07/16/2019 INDICATION: Short of breath TECHNIQUE: Frontal and lateral views of the chest are obtained. FINDINGS: The heart size is normal. The pulmonary vasculature is normal. The lungs are clear. IMPRESSION: 1. No acute pulmonary process.
[2021-02-19] MEDS ORDERED: cefTRIAXone 1,000 MG VIAL (IM USE) IM STA (21:27)
[2021-02-19 22:02] VITALS: BP 111/67; PULSE 76; RESP 18; TEMP 98.5
== END 2021-02-19 21:50 | disposition home or self-care (01) ==
LOC: EC 18:12
DX: N39.0 Urinary tract infection, site not specified (principal); E11.40 Type 2 diabetes mellitus with diabetic neuropathy, unspecified; I10 Essential (primary) hypertension; E78.5 Hyperlipidemia, unspecified; M19.90 Unspecified osteoarthritis, unspecified site; M79.7 Fibromyalgia; F32.9 Major depressive disorder, single episode, unspecified; F41.9 Anxiety disorder, unspecified; Z79.84 Long term (current) use of oral hypoglycemic drugs; Z79.899 Other long term (current) drug therapy; Z88.5 Allergy status to narcotic agent; Z88.2 Allergy status to sulfonamides; Z88.8 Allergy status to other drugs, medicaments and biological substances
CPT/HCPCS: 36415; 93005; 80053; 84484; 85025; 85610; 85730; 81001; 87086; 71046; 96374; 96361 ×2; 96372; 99285; J1200; J0696

== ENCOUNTER 2022-01-03 14:19 | Inpatient (IN) | payer MEDICARE ==
[2022-01-03] MEDS ORDERED: ONDANSETRON 4 MG/2 ML VIAL IVP STA (14:39)
[2022-01-03] MEDS ORDERED: HYDROmorphone 0.5 MG/0.5 ML SYRINGE IVP STA (14:39)
--- NOTE | 2022-01-03 14:46 | ED ---
General Adult HPI - General Chief complaint: Neuro Symptoms/Deficit Stated complaint: arm numbness Time Seen by Provider: 01/03/22 14:27 Source: patient, EMS Mode of arrival: EMS Limitations: no limitations - History of Present Illness Initial comments: 76-year-old female patient presents to the emergency department today for evaluation for concerns of stroke. States that yesterday around noon she started having symptoms of left arm and leg numbness and pain. States she is having pain in the left shoulder that worsen significantly when she moves the arm. Denies any difficulty with speech. Denies headache, blurred vision, double vision, or dizziness. Denies history of stroke. States the pain in her left shoulder is sharp when she moves it. States the pain in the left leg feels like "intense neuropathy symptoms". She does take oxycodone 3 times a day did take a dose today. States he does not helping for her pain. She denies any chest pain or shortness of breath. Denies nausea or vomiting. Patient denies any recent rash, fever, chills, cough, abdominal pain, diarrhea, constipation, back pain, hematuria, dysuria, urinary urgency, urinary frequency, or any other complaints. - Related Data Home Medications Medication Instructions Recorded Confirmed oxyCODONE HCL/ACETAMINOPHEN 1 tab PO TID PRN 03/24/17 07/15/19 [Percocet 7.5-325 mg] glipiZIDE XL [Glucotrol XL] 5 mg PO DAILY 11/06/18 07/15/19 Atorvastatin [Lipitor] 40 mg PO MO 07/15/19 07/15/19 Furosemide [Lasix] 20 mg PO DAILY 07/15/19 07/15/19 Allopurinol [Zyloprim] 300 mg PO DAILY 01/03/22 01/03/22 Alpha Lipoic Acid 600 mg PO DAILY 01/03/22 01/03/22 Enalapril Maleate 10 mg PO DAILY 01/03/22 01/03/22 Ferrous Sulfate [Iron (65 MG 325 mg PO DAILY 01/03/22 01/03/22 Elemental)] Ketoconazole 2% Shampoo [Nizoral] 1 applic TOPICAL Q7D 01/03/22 01/03/22 Meloxicam [Mobic] 15 mg PO DAILY 01/03/22 01/03/22 metFORMIN HCL [Glucophage] 500 mg PO DAILY 01/03/22 01/03/22 Allergies Allergy/AdvReac Type Severity Reaction Status Date / Time glimepiride Allergy Mild Unknown Verified 01/03/22 18:45 ibuprofen Allergy Unknown Verified 01/03/22 18:45 Hvyfrzz-ZHJ-SrM Reductase Allergy Unknown Verified 01/03/22 18:45 Inhibitor [Uexvmqw-Ozb-Sij Reductase Inhibitor] Sulfa (Sulfonamide Allergy Unknown Verified 01/03/22 18:45 Antibiotics) metformin AdvReac Unknown Verified 01/03/22 18:45 tizanidine AdvReac LOW BLOOD Verified 01/03/22 18:45 PRESSURE/SLEEPY Review of Systems ROS Statement: Those systems with pertinent positive or pertinent negative responses have been documented in the HPI. ROS Other: All systems not noted in ROS Statement are negative. Past Medical History Past Medical History: Diabetes Mellitus, Fibromyalgia, Hyperlipidemia, Hypertension, Osteoarthritis (OA), Renal Disease Additional Past Medical History / Comment(s): NIDDM type II, neuropathy in hands and feet bilaterally, chronic low back and leg pain. History of Any Multi-Drug Resistant Organisms: None Reported Past Surgical History: Cholecystectomy Additional Past Surgical History / Comment(s): D & C, right hand tendon surgery, low back injections, pain procedures. Past Anesthesia/Blood Transfusion Reactions: No Reported Reaction Past Psychological History: Anxiety, Depression Smoking Status: Never smoker Past Alcohol Use History: None Reported Past Drug Use History: None Reported - Past Family History Father Family Medical History: Cancer Additional Family Medical History / Comment(s): Pt states her family was estranged from her. She knows her father had cancer but not what type. Mother History Unknown: Yes General Exam Limitations: no limitations General appearance: alert, in no apparent distress, other (This is a well- developed, well-nourished adult female in no acute distress.) Eye exam: Present: normal appearance, PERRL, EOMI. Absent: scleral icterus, conjunctival injection, nystagmus, periorbital swelling ENT exam: Present: normal exam, normal oropharynx, mucous membranes moist Respiratory exam: Present: normal lung sounds bilaterally. Absent: respiratory distress, wheezes, rales, rhonchi, stridor Cardiovascular Exam: Present: regular rate, normal rhythm, normal heart sounds. Absent: systolic murmur, diastolic murmur, rubs, gallop, clicks GI/Abdominal exam: Present: soft, normal bowel sounds. Absent: distended, tenderness, guarding, rebound, rigid Neurological exam: Present: alert, oriented X3, CN II-XII intact Expanded Speech: Present: fluid speech Cranial nerves: Tongue Deviation: Normal, Nystagmus: Normal, Facial Sensation: Normal Cerebellar function: Finger to Nose: Normal Upper motor neuron: Pronator Drift: Normal Motor strength exam: RUE: 5, LUE: 5, RLE: 5, LLE: 5 Psychiatric exam: Present: normal affect, normal mood Skin exam: Present: warm, dry, intact, normal color. Absent: rash Course Vital Signs 01/03/22 14:32 Temperature 98.8 F Pulse Rate 62 Respiratory 18 Rate Blood Pressure 125/74 O2 Sat by Pulse 95 Oximetry EKG Findings - EKG Comments: EKG Findings:: EKG obtained at 1739 shows sinus rhythm with a ventricular rate of 61, FL interval 172, QRS duration 101, QT 382, QTc 386. No evidence of ST elevation or depression. Medical Decision Making - Medical Decision Making 76-year-old female patient presents to the emergency department today for evaluation of left arm and left leg pain that started yesterday around 12:00. Patient states she did have some numbness and tingling was concerned she may be having a stroke. Upon arrival patient is resting comfortably in bed. Does have increased pain with movement of both extremities. NIH score is 0. Symptoms do not seem to be consistent with CVA at this time. Labs reviewed and are unremarkable. CT brain negative. Chest x-ray negative. EKG unremarkable. Plan was to discharge home however patient is having considerable difficulty with mobility and is concerned about her pain returning. She'll be admitted for pain management, PT/OT evaluation. Patient is agreeable with this. Case discussed with my attending Dr. Snow. - Lab Data Result diagrams: 01/03/22 14:38 01/03/22 14:38 Lab Results 01/03/22 01/03/22 01/03/22 Range/Units 14:38 14:38 14:38 WBC 10.4 (3.8-10.6) k/uL RBC 4.07 (3.80-5.40) m/uL Hgb 12.6 (11.4-16.0) gm/dL Hct 40.3 (34.0-46.0) % MCV 99.1 (80.0-100.0) fL MCH 30.9 (25.0-35.0) pg MCHC 31.1 (31.0-37.0) g/dL RDW 13.8 (11.5-15.5) % Plt Count 218 (150-450) k/uL MPV 7.3 Neutrophils % 88 % Lymphocytes % 6 % Monocytes % 3 % Eosinophils % 2 % Basophils % 1 % Neutrophils # 9.2 H (1.3-7.7) k/uL Lymphocytes # 0.6 L (1.0-4.8) k/uL Monocytes # 0.3 (0-1.0) k/uL Eosinophils # 0.2 (0-0.7) k/uL Basophils # 0.1 (0-0.2) k/uL PT 10.4 (9.0-12.0) sec INR 0.9 (<1.2) APTT 24.2 (22.0-30.0) sec Sodium (137-145) mmol/L Potassium (3.5-5.1) mmol/L Chloride (98-107) mmol/L Carbon Dioxide (22-30) mmol/L Anion Gap mmol/L BUN (7-17) mg/dL Creatinine (0.52-1.04) mg/dL Est GFR (CKD-EPI)AfAm (>60 ml/min/1.73 sqM) Est GFR (CKD-EPI)NonAf (>60 ml/min/1.73 sqM) Glucose (74-99) mg/dL Calcium (8.4-10.2) mg/dL Total Bilirubin (0.2-1.3) mg/dL AST (14-36) U/L ALT (4-34) U/L Alkaline Phosphatase (38-126) U/L Troponin I (0.000-0.034) ng/mL Total Protein (6.3-8.2) g/dL Albumin (3.5-5.0) g/dL Urine Color Colorless Urine Appearance Cloudy H (Clear) Urine pH 7.0 (5.0-8.0) Ur Specific [place] 1.006 (1.001-1.035) Urine Protein Negative (Negative) Urine Glucose (UA) Negative (Negative) Urine Ketones Negative (Negative) Urine Blood Negative (Negative) Urine Nitrite Negative (Negative) Urine Bilirubin Negative (Negative) Urine Urobilinogen <2.0 (<2.0) mg/dL Ur Leukocyte Esterase Moderate H (Negative) Urine RBC 1 (0-5) /hpf Urine WBC 9 H (0-5) /hpf Ur Squamous Epith Cells <1 (0-4) /hpf Urine Bacteria Few H (None) /hpf Urine Mucus Rare H (None) /hpf 01/03/22 01/03/22 Range/Units 14:38 14:38 WBC (3.8-10.6) k/uL RBC (3.80-5.40) m/uL Hgb (11.4-16.0) gm/dL Hct (34.0-46.0) % MCV (80.0-100.0) fL MCH (25.0-35.0) pg MCHC (31.0-37.0) g/dL RDW (11.5-15.5) % Plt Count (150-450) k/uL MPV Neutrophils % % Lymphocytes % % Monocytes % % Eosinophils % % Basophils % % Neutrophils # (1.3-7.7) k/uL Lymphocytes # (1.0-4.8) k/uL Monocytes # (0-1.0) k/uL Eosinophils # (0-0.7) k/uL Basophils # (0-0.2) k/uL PT (9.0-12.0) sec INR (<1.2) APTT (22.0-30.0) sec Sodium 138 (137-145) mmol/L Potassium 4.4 (3.5-5.1) mmol/L Chloride 100 (98-107) mmol/L Carbon Dioxide 29 (22-30) mmol/L Anion Gap 9 mmol/L BUN 16 (7-17) mg/dL Creatinine 1.06 H (0.52-1.04) mg/dL Est GFR (CKD-EPI)AfAm 60 (>60 ml/min/1.73 sqM) Est GFR (CKD-EPI)NonAf 52 (>60 ml/min/1.73 sqM) Glucose 121 H (74-99) mg/dL Calcium 8.8 (8.4-10.2) mg/dL Total Bilirubin 0.6 (0.2-1.3) mg/dL AST 20 (14-36) U/L ALT 13 (4-34) U/L Alkaline Phosphatase 95 (38-126) U/L Troponin I <0.012 (0.000-0.034) ng/mL Total Protein 6.7 (6.3-8.2) g/dL Albumin 4.1 (3.5-5.0) g/dL Urine Color Urine Appearance (Clear) Urine pH (5.0-8.0) Ur Specific [place] (1.001-1.035) Urine Protein (Negative) Urine Glucose (UA) (Negative) Urine Ketones (Negative) Urine Blood (Negative) Urine Nitrite (Negative) Urine Bilirubin (Negative) Urine Urobilinogen (<2.0) mg/dL Ur Leukocyte Esterase (Negative) Urine RBC (0-5) /hpf Urine WBC (0-5) /hpf Ur Squamous Epith Cells (0-4) /hpf Urine Bacteria (None) /hpf Urine Mucus (None) /hpf - Radiology Data Radiology results: report reviewed, image reviewed Two-view x-ray of the chest is obtained. Report was reviewed in its entirety. Impression by Dr. Srivastava shows no active cardiopulmonary disease. Normal heart. No change. CT brain without contrast is obtained. Report was reviewed in its entirety. 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 No acute intracranial abnormality. No change. Disposition Clinical Impression: Intractable pain, Left arm pain, Left leg pain Disposition: ADMITTED IP TO THIS [facility] Condition: Serious Decision to Admit Reason: Admit from EC Decision Date: 01/03/22 Decision Time: 18:09
[2022-01-03 15:52] LABS: Basophils # (A) 0.1 k/uL (0-0.2); Basophils % (A) 1 %; Eosinophils # (A) 0.2 k/uL (0-0.7); Eosinophils % (A) 2 %; HCT 40.3 % (34.0-46.0); HGB 12.6 gm/dL (11.4-16.0); Lymphocytes # (A) 0.6 k/uL (1.0-4.8); Lymphocytes % (A) 6 %; MCH 30.9 pg (25.0-35.0); MCHC 31.1 g/dL (31.0-37.0); MCV 99.1 fL (80.0-100.0); Mean Platelet Volume 7.3; Monocytes # (A) 0.3 k/uL (0-1.0); Monocytes % (A) 3 %; Neutrophils # (A) 9.2 k/uL (1.3-7.7); Neutrophils % (A) 88 %; Platelet Count 218 k/uL (150-450); RBC 4.07 m/uL (3.80-5.40); RDW 13.8 % (11.5-15.5); WBC 10.4 k/uL (3.8-10.6)
[2022-01-03 15:57] LABS: Appearance,Urine Cloudy (Clear); Bacteria,Urine Few /hpf; Bilirubin,Urine Negative (Negative); Blood,Urine Negative (Negative); Color,Urine Colorless; Glucose,Urine (UA) Negative (Negative); Ketones,Urine Negative (Negative); Leukocyte Esterase,Urine Moderate (Negative); Mucus,Urine Rare /hpf; Nitrite,Urine Negative (Negative); Protein,Urine Negative (Negative); RBC,Urine 1 /hpf (0-5); Specific Gravity,Urine 1.006 (1.001-1.035); Squamous Epithelial Cell,Urine <1 /hpf (0-4); Urobilinogen,Urine <2.0 mg/dL (<2.0); WBC,Urine 9 /hpf (0-5)
[2022-01-03 15:59] LABS: Albumin 4.1 g/dL (3.5-5.0); Calcium 8.8 mg/dL (8.4-10.2); Potassium 4.4 mmol/L (3.5-5.1); Total Bilirubin 0.6 mg/dL (0.2-1.3); Total Protein 6.7 g/dL (6.3-8.2)
[2022-01-03 16:00] LABS: INR 0.9 (<1.2)
[2022-01-03 16:01] LABS: Partial Thromboplastin Time 24.2 sec (22.0-30.0); Prothrombin Time 10.4 sec (9.0-12.0)
--- NOTE | 2022-01-03 16:42 | CT ---
EXAMINATION TYPE: CT brain wo con DATE OF EXAM: 01/03/2022 COMPARISON: 11/07/2018 HISTORY: left side weakness/ pain CT DLP: 1131.4 mGycm Automated exposure control for dose reduction was used. There is mild enlargement of the ventricles. There is no mass effect or midline shift. No sign of int racranial hemorrhage. There is minimal cortical atrophy. Calvarium is intact. Skull base is intact. T here is normal aeration of the mastoid sinuses. IMPRESSION: Mild cerebral atrophy. No acute intracranial abnormality. No change.
--- NOTE | 2022-01-03 16:43 | XR ---
EXAMINATION TYPE: XR chest 2V DATE OF EXAM: 01/03/2022 COMPARISON: 02/19/2021 HISTORY: Short of breath. Altered mental status TECHNIQUE: FINDINGS: There is no heart failure nor confluent pneumonic infiltrate. Costophrenic angles are clear . Bony thorax is intact. IMPRESSION: No active cardiopulmonary disease. Normal heart. No change.
[2022-01-03] MEDS ORDERED: NALOXONE 0.4 MG/ML 1 ML VIAL IV PRN (18:07)
[2022-01-03] MEDS ORDERED: HYDROmorphone 0.5 MG/0.5 ML SYRINGE IVP PRN (18:07)
[2022-01-03] MEDS ORDERED: ONDANSETRON 4 MG/2 ML VIAL IVP PRN (18:07)
[2022-01-03] MEDS ORDERED: oxyCODONE-APAP 7.5-325MG 1 EACH TAB PO SCH (22:00)
[2022-01-03] MEDS: HYDROmorphone 1 MG/ML 1 ML SYRINGE IVP PRN (22:45)
[2022-01-03 23:05] LABS: Glucose,Whole Blood 99 mg/dL (75-99)
[2022-01-04] MEDS: HYDROmorphone 1 MG/ML 1 ML SYRINGE IVP PRN ×4 (01:43→19:35)
[2022-01-04 07:39] LABS: Glucose,Whole Blood 115 mg/dL (75-99)
[2022-01-04] MEDS ORDERED: NON FORMULARY DRUG (Alpha Lipoic Acid [Alpha Lipoic Acid] 600 MG Tablet) PO SCH (09:00)
[2022-01-04] MEDS: lisinopriL 10 MG TAB PO SCH (09:06)
[2022-01-04] MEDS: MELOXICAM 7.5 MG TAB PO SCH (09:06)
[2022-01-04] MEDS: ATORVASTATIN 40 MG TAB PO SCH (09:06)
[2022-01-04] MEDS: FUROSEMIDE 20 MG TAB PO SCH ×2 (09:06→09:16)
[2022-01-04] MEDS: FERROUS SULFATE 325 MG TAB PO SCH (09:06)
[2022-01-04] MEDS: metFORMIN 500 MG TAB PO SCH (09:06)
[2022-01-04] MEDS: allopurinoL 300 MG TAB PO SCH (09:06)
[2022-01-04 12:09] LABS: Glucose,Whole Blood 116 mg/dL (75-99)
[2022-01-04 17:31] LABS: Glucose,Whole Blood 97 mg/dL (75-99)
--- NOTE | 2022-01-04 17:51 | CT ---
EXAMINATION TYPE: CT cervical spine wo con DATE OF EXAM: 01/04/2022 COMPARISON: 09/02/2016 HISTORY: left arm and leg numbness CT DLP: 718.8 mGycm Automated exposure control for dose reduction was used. Images obtained from the skull base to T1 vertebra without contrast. The cervical vertebra have normal alignment. There is degenerative disc space narrowing at C4-5 and C 5-6 and C6-7 with spurring of the endplates. There is bilateral neural foraminal impingement due to m ultilevel uncovertebral spurring from C4 to C7. The skull base is intact. Posterior elements are inta ct. Facet joints are intact. 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 There is evidence of significant C4-5 b otilio spinal stenosis. There is more mild stenosis at C5-6 and C6-7. No fracture seen. Spurring overall not significantly different than old exam.
[2022-01-04 20:09] LABS: Glucose,Whole Blood 142 mg/dL (75-99)
[2022-01-04] MEDS: BISMUTH SUBSALICYLATE 4,192 MG/240 ML BOTTLE PO PRN (21:31)
--- NOTE | 2022-01-04 22:35 | P.HPIM ---
History of Present Illness H&P Date: 01/04/22 Chief Complaint: left sided numbness Patient is a 76-year-old female with a known history of hypertension, hyperlipidemia, diabetes type 2 [id number], fibromyalgia, bilateral peripheral neuropathy and chronic low back pain, anxiety/depression presents to ER with complaints of numbness over the left upper and lower extremities. Patient states that around noon yesterday watching TV she started having left arm and left leg numbness and pain. Patient states that she had pain on the bilateral shoulders and numbness on the left side. She was also complaining of neck pain. Denied weakness in the arms or legs. Denied any slurred speech. No blurred vision or dizziness. Patient concerned that she may be having strokelike symptoms and presented to ER. Denied complaints of chest pain or shortness breath. No cough or sputum production. No recent illnesses. No hematuria or dysuria. No hematemesis or melena. No recent travel. She does take oxycodone/Percocet [address] head on admission showed mild cerebral atrophy. No acute intracranial abnorm ality. Chest x-ray showed no active cardiopulmonary disease. Normal heart. EKG showed sinus rhythm Laboratory data showed WBC 10.4, hemoglobin 12.6 and platelets 218 Sodium 138 potassium 4.4 chloride 100 bicarb is 29 BUN 16 and creatinine 1.06 and blood sugar 121 liver enzymes are not elevated troponin x1 negative urinalysis showed cloudy with moderate leukocyte esterase and WBCs 9. Review of Systems Constitutional: Patient denies any fever or chills . No generalized weakness or weight loss. Abdomen: Patient denied nausea vomiting and diarrhea and abdominal pain. Cardiovascular: Patient denies any chest pain or short of breath no palpitations. Respiratory: patient denied any cough or sputum production. No shortness of breath Neurologic: Patient denied any numbness or tingling headache. Numbness on the left upper and lower extremities. Musculoskeletal: Patient denies any complaints of joint swelling or deformity. Skin: Negative Psychiatric: Negative Endocrine: No heat or cold intolerance. No recent weight gain. Genitourinary: No dysuria or hematuria. All other 14 point ROS negative except the above Past Medical History Past Medical History: Diabetes Mellitus, Fibromyalgia, Hyperlipidemia, Hypertension, Osteoarthritis (OA), Renal Disease Additional Past Medical History / Comment(s): NIDDM type II, neuropathy in hands and feet bilaterally, chronic low back and leg pain. History of Any Multi-Drug Resistant Organisms: None Reported Past Surgical History: Cholecystectomy Additional Past Surgical History / Comment(s): D & C, right hand tendon surgery, low back injections, pain procedures. Past Anesthesia/Blood Transfusion Reactions: No Reported Reaction Past Psychological History: Anxiety, Depression Additional Psychological History / Comment(s): Pt. resides alone. She ambulates with a walker. She does not drive, she gets to app by friends or bus. Smoking Status: Never smoker Past Alcohol Use History: None Reported Additional Past Alcohol Use History / Comment(s): Pt. started smoking as a teen and quit in 1987. Past Drug Use History: None Reported - Past Family History Father Family Medical History: Cancer Additional Family Medical History / Comment(s): Pt states her family was estranged from her. She knows her father had cancer but not what type. Mother History Unknown: Yes Medications and Allergies Home Medications Medication Instructions Recorded Confirmed Type oxyCODONE HCL/ACETAMINOPHEN 1 tab PO TID 03/24/17 01/03/22 History [Percocet 7.5-325 mg] glipiZIDE XL [Glucotrol XL] 5 mg PO DAILY 11/06/18 01/03/22 History Atorvastatin [Lipitor] 40 mg PO DAILY 07/15/19 01/03/22 History Furosemide [Lasix] 20 mg PO DAILY 07/15/19 01/03/22 History Allopurinol [Zyloprim] 300 mg PO DAILY 01/03/22 01/03/22 History Alpha Lipoic Acid 600 mg PO DAILY 01/03/22 01/03/22 History Enalapril Maleate 10 mg PO DAILY 01/03/22 01/03/22 History Ferrous Sulfate [Iron (65 MG 325 mg PO DAILY 01/03/22 01/03/22 History Elemental)] Ketoconazole 2% Shampoo [Nizoral] 1 applic TOPICAL Q7D 01/03/22 01/03/22 History Meloxicam [Mobic] 15 mg PO DAILY 01/03/22 01/03/22 History metFORMIN HCL [Glucophage] 500 mg PO DAILY 01/03/22 01/03/22 History Allergies Allergy/AdvReac Type Severity Reaction Status Date / Time glimepiride Allergy Mild Unknown Verified 01/03/22 18:45 ibuprofen Allergy Unknown Verified 01/03/22 18:45 Ulccklz-USZ-YsB Reductase Allergy Unknown Verified 01/03/22 18:45 Inhibitor [Snnzfuo-Dbg-Ekb Reductase Inhibitor] Sulfa (Sulfonamide Allergy Unknown Verified 01/03/22 18:45 Antibiotics) metformin AdvReac Unknown Verified 01/03/22 18:45 tizanidine AdvReac LOW BLOOD Verified 01/03/22 18:45 PRESSURE/SLEEPY Physical Exam Vitals: Vital Signs Temp Pulse Pulse Resp BP BP Pulse Ox 01/04/22 09:04 99.1 F 69 16 144/72 91 L 01/04/22 05:03 98.2 F 59 L 16 123/60 96 01/03/22 23:24 142/79 01/03/22 22:17 97.4 F L 75 16 190/80 94 L 01/03/22 22:10 16 01/03/22 19:54 61 20 153/90 93 L 01/03/22 14:32 98.8 F 62 18 125/74 95 Intake and Output 01/03/22 01/04/22 01/04/22 22:59 06:59 14:59 Intake Total 600 Balance 600 Intake: Oral 600 Other: Voiding Method Bedside Commode # Voids 1 3 Weight 117.934 kg Constitutional: Patient denies any fever or chills . No generalized weakness or weight loss. Abdomen: Patient denied nausea vomiting and diarrhea and abdominal pain. Cardiovascular: Patient denies any chest pain or short of breath no palpitations. Respiratory: patient denied any cough or sputum production. No shortness of breath Neurologic: Patient denied any numbness or tingling headache. Musculoskeletal: Patient denies any complaints of joint swelling or deformity. Skin: Negative Psychiatric: Negative Endocrine: No heat or cold intolerance. No recent weight gain. Genitourinary: No dysuria or hematuria. All other 14 point ROS negative except the above Results CBC & Chem 7: 01/03/22 14:38 01/03/22 14:38 Labs: Abnormal Lab Results - Last 24 Hours (Table) 01/03/22 01/03/22 01/03/22 Range/Units 14:38 14:38 14:38 Neutrophils # 9.2 H (1.3-7.7) k/uL Lymphocytes # 0.6 L (1.0-4.8) k/uL Creatinine 1.06 H (0.52-1.04) mg/dL Glucose 121 H (74-99) mg/dL POC Glucose (mg/dL) (75-99) mg/dL Urine Appearance Cloudy H (Clear) Ur Leukocyte Esterase Moderate H (Negative) Urine WBC 9 H (0-5) /hpf Urine Bacteria Few H (None) /hpf Urine Mucus Rare H (None) /hpf 01/04/22 01/04/22 Range/Units 07:37 12:06 Neutrophils # (1.3-7.7) k/uL Lymphocytes # (1.0-4.8) k/uL Creatinine (0.52-1.04) mg/dL Glucose (74-99) mg/dL POC Glucose (mg/dL) 115 H 116 H (75-99) mg/dL Urine Appearance (Clear) Ur Leukocyte Esterase (Negative) Urine WBC (0-5) /hpf Urine Bacteria (None) /hpf Urine Mucus (None) /hpf Thrombosis Risk Factor Assmnt - DVT/VTE Prophylaxis DVT/VTE Prophylaxis: Pharmacologic Prophylaxis ordered - Choose All That Apply Any of the Below Risk Factors Present?: Yes Each Factor Represents 1 point: Obesity (BMI >25), Swollen legs (current) Other Risk Factors: Yes Each Risk Factor Represents 3 Points: Age 75 years or older Other congenital or acquired thrombophilia - If yes, enter type in comment: No Thrombosis Risk Factor Assessment Total Risk Factor Score: 5 Thrombosis Risk Factor Assessment Level: High Risk Assessment and Plan Assessment: Left-sided numbness likely due to cervical radiculopathy. CT head showed no acute CVA. Hypertension Diabetes type 2 [id number] Bilateral peripheral neuropathy in the hands and feet Chronic low back pain and Fibromyalgia Anxiety/depression Obesity with BMI 39.5 DVT prophylaxis with heparin subcu Plan: Patient will be continued on pain management with Dilaudid and monitor for any neurological symptoms. CT cervical spine was ordered. Current home medications and neurology evaluation. Patient is still complains of numbness on the left side. Follow-up closely. Time with Patient: Greater than 30
[2022-01-05] MEDS: HYDROmorphone 1 MG/ML 1 ML SYRINGE IVP PRN ×2 (03:10→19:52)
[2022-01-05 06:50] LABS: Glucose,Whole Blood 94 mg/dL (75-99)
[2022-01-05] MEDS: metFORMIN 500 MG TAB PO SCH (08:07)
[2022-01-05] MEDS: FERROUS SULFATE 325 MG TAB PO SCH (08:07)
[2022-01-05] MEDS: MELOXICAM 7.5 MG TAB PO SCH (08:07)
[2022-01-05] MEDS: ATORVASTATIN 40 MG TAB PO SCH (08:07)
[2022-01-05] MEDS: lisinopriL 10 MG TAB PO SCH (08:08)
[2022-01-05] MEDS: FUROSEMIDE 20 MG TAB PO SCH ×2 (08:08→09:02)
[2022-01-05] MEDS: allopurinoL 300 MG TAB PO SCH (08:12)
[2022-01-05 10:50] LABS: Basophils # (A) 0.02 X 10*3/uL (0.00-0.10); Basophils % (A) 0.2 %; Eosinophils # (A) 0.23 X 10*3/uL (0.04-0.35); Eosinophils % (A) 2.3 %; HCT 38.5 % (37.2-46.3); Immature Grans, Automated 0.4 %; Lymphocytes # (A) 1.15 X 10*3/uL (0.90-5.00); Lymphocytes % (A) 11.5 %; MCH 31.3 pg (27.0-32.0); MCHC 31.2 g/dL (32.0-37.0); MCV 100.3 fL (80.0-97.0); Mean Platelet Volume 10.1 fL (9.5-12.2); Monocytes # (A) 0.39 X 10*3/uL (0.20-1.00); Monocytes % (A) 3.9 %; NRBC Per 100 WBC 0 /100 WBCS (0.0-0.0); Neutrophils # (A) 8.14 X 10*3/uL (1.80-7.70); Neutrophils % (A) 81.7 %; Platelet Count 221 X 10*3/uL (140-440); RBC 3.84 X 10*6/uL (4.10-5.20); RDW 14.1 % (11.5-14.5); WBC 9.97 X 10*3/uL (4.50-10.00)
[2022-01-05 11:07] LABS: African American GFR (CKD) 63.8 (60.0-200.0); Blood Urea Nitrogen 17.5 mg/dL (9.0-27.0); Calcium 9.3 mg/dL (8.7-10.3); Carbon Dioxide 26.9 mmol/L (20.0-27.5); Chloride 99 mmol/L (96-109); Glucose 86 mg/dL (70-110); Non-African American GFR(CKD) 55.1 (60.0-200.0); Potassium 3.8 mmol/L (3.5-5.5); Sodium 138 mmol/L (135-145)
[2022-01-05 11:09] LABS: Glucose,Whole Blood 145 mg/dL (75-99)
[2022-01-05] MEDS ORDERED: diazePAM 5 MG TAB PO STA (11:51)
--- NOTE | 2022-01-05 12:10 | P.CNOR ---
History of Present Illness - [facility] Consult date: 01/05/22 Requesting physician: Liv Lucas Consult reason: neck pain, other (Cervical stenosis; left upper extremity and lower extremity numbness and tingling) History of present illness: Patient is a very pleasant 76-year-old female known to our service who is seen and examined at bedside for further evaluation of her cervical spine. Patient states at noon on 01/03/2022, she was sitting at home when she began to experience numbness and tingling in her left upper extremity and left lower extremity. She was concerned for strokelike symptoms and presented to the emerg ency department for further evaluation. She has undergone numerous testing during her presentation to the emergency department and admission to the hospital. CT of the head showed no acute intracranial abnormality. Patient states stroke was ruled out. EKG was in normal sinus rhythm. Patient states she is known have degenerative changes in her cervical spine. Since her admission to the hospital she does not feel her numbness and tingling symptoms have improved. She states she has some cervical pain with pain radiating towards the left shoulder with numbness and tingling radiating down the entire left upper extremity. She does have some numbness and tingling down the left lower extremity as well. She does have difficulty describing the numbness and tingling specifically in the lower extremities as she does admit to bilateral neuropathy in the lower extremities. She states she does have some neuropathy in her hands. She previously worked her treatment with Dr. Frias in pain management in the outpatient setting and had injections at her cervical spine. She states her was some discussion previously about the possibility of surgical intervention at her cervical spine. After Dr. Frias left the area she continues to take pain medication for pain control including Percocet 7.5 mg/325 mg 3 times a day as prescribed by her primary care provider. She did have CT imaging of her cervical spine since her admission and hospital which did show multilevel degenerative change at her cervical spine. Consultation has also been placed with neurology given her left-sided symptoms. She denies any specific upper extremity or lower extremity weakness bilaterally. She does have some chronic difficulty with ambulation and uses a walker to aid in ambulation. She denies any slurred speech. Patient's other medical diagnoses include diabetes mellitus, fibromyalgia, hyperlipidemia, hypertension, renal disease, and claustrophobia. She denies having a pacemaker. Past Medical History Past Medical History: Diabetes Mellitus, Fibromyalgia, Hyperlipidemia, Hypertension, Osteoarthritis (OA), Renal Disease Additional Past Medical History / Comment(s): NIDDM type II, neuropathy in hands and feet bilaterally, chronic low back and leg pain. History of Any Multi-Drug Resistant Organisms: None Reported Past Surgical History: Cholecystectomy Additional Past Surgical History / Comment(s): D & C, right hand tendon surgery, low back injections, pain procedures. Past Anesthesia/Blood Transfusion Reactions: No Reported Reaction Past Psychological History: Anxiety, Depression Additional Psychological History / Comment(s): Pt. resides alone. She ambulates with a walker. She does not drive, she gets to appts by friends or bus. Smoking Status: Never smoker Past Alcohol Use History: None Reported Additional Past Alcohol Use History / Comment(s): Pt. started smoking as a teen and quit in 1987. Past Drug Use History: None Reported - Past Family History Father Family Medical History: Cancer Additional Family Medical History / Comment(s): Pt states her family was jose guadalupe montes from her. She knows her father had cancer but not what type. Mother History Unknown: Yes Medications and Allergies Home Medications Medication Instructions Recorded Confirmed Type oxyCODONE HCL/ACETAMINOPHEN 1 tab PO TID 03/24/17 01/03/22 History [Percocet 7.5-325 mg] glipiZIDE XL [Glucotrol XL] 5 mg PO DAILY 11/06/18 01/03/22 History Atorvastatin [Lipitor] 40 mg PO DAILY 07/15/19 01/03/22 History Furosemide [Lasix] 20 mg PO DAILY 07/15/19 01/03/22 History Allopurinol [Zyloprim] 300 mg PO DAILY 01/03/22 01/03/22 History Alpha Lipoic Acid 600 mg PO DAILY 01/03/22 01/03/22 History Enalapril Maleate 10 mg PO DAILY 01/03/22 01/03/22 History Ferrous Sulfate [Iron (65 MG 325 mg PO DAILY 01/03/22 01/03/22 History Elemental)] Ketoconazole 2% Shampoo [Nizoral] 1 applic TOPICAL Q7D 01/03/22 01/03/22 History Meloxicam [Mobic] 15 mg PO DAILY 05/28/22 05/28/22 History metFORMIN HCL [Glucophage] 500 mg PO DAILY 01/03/22 01/03/22 History Allergies Allergy/AdvReac Type Severity Reaction Status Date / Time glimepiride Allergy Mild Unknown Verified 01/03/22 18:45 ibuprofen Allergy Unknown Verified 01/03/22 18:45 Ffzqzzg-CTH-OaQ Reductase Allergy Unknown Verified 01/03/22 18:45 Inhibitor [Kreavjl-Cvj-Bii Reductase Inhibitor] Sulfa (Sulfonamide Allergy Unknown Verified 01/03/22 18:45 Antibiotics) metformin AdvReac Unknown Verified 01/03/22 18:45 tizanidine AdvReac LOW BLOOD Verified 01/03/22 18:45 PRESSURE/SLEEPY Physical Examination Physical exam: Patient is awake, alert, and oriented 3 Vital signs stable Good chest excursion with deep inspiration and expiration Examination of the cervical spine reveals skin is intact with no abrasions, lace rations, or bruises; no erythema, purulence or signs of infection palpation of the posterior cervical spine Full range of motion of the cervical spine with adequate flexion, extension, and bilateral rotation Flat Machine Cutter strength, thumb strength, interosseous strength, biceps strength, triceps strength, and shoulder strength positive sustained bilaterally Upper extremity strength 5/5 bilaterally Biceps reflex 1+ bilaterally and Brachioradialis reflexes 1+ bilaterally No upper extremity hyperreflexia bilaterally Hoffmans sign negative upper extremity bilaterally No signs or symptoms of DVT; no calf pain Patient is able to perform good active range of motion bilateral lower extremities without difficulty Results Pertinent studies: CT of the cervical spine taken on 01/04/2022: C4-5 degenerative disc disease, large anterior osteophytic spurring, and large posterior spurring resulting in central stenosis; C5-6 and C6-7 significant degenerative disc disease with large anterior osteophytic spurring was stenosis; T2-3 large anterior osteoarthritic spurring - Labs Labs: Abnormal Lab Results - Last 24 Hours (Table) 01/04/22 01/04/22 01/05/22 Range/Units 12:06 20:06 06:30 RBC (4.10-5.20) X 10*6/uL MCV (80.0-97.0) fL MCHC (32.0-37.0) g/dL Neutrophils # (1.80-7.70) X 10*3/uL Est GFR (CKD-EPI)NonAf (60.0-200.0) POC Glucose (mg/dL) 116 H 142 H (75-99) mg/dL Hemoglobin A1c 6.2 H (0.0-6.0) % C-Reactive Protein (0.00-0.80) mg/dL 01/05/22 01/05/22 01/05/22 Range/Units 06:30 06:30 11:06 RBC 3.84 L (4.10-5.20) X 10*6/uL MCV 100.3 H (80.0-97.0) fL MCHC 31.2 L (32.0-37.0) g/dL Neutrophils # 8.14 H (1.80-7.70) X 10*3/uL Est GFR (CKD-EPI)NonAf 55.1 L (60.0-200.0) POC Glucose (mg/dL) 145 H (75-99) mg/dL Hemoglobin A1c (0.0-6.0) % C-Reactive Protein 2.50 H (0.00-0.80) mg/dL H & H 01/03/22 01/05/22 Range/Units 14:38 06:30 Hgb 12.6 12.0 (11.4-16.0) gm/dL Hct 40.3 38.5 (34.0-46.0) % Coagulation 01/03/22 Range/Units 14:38 INR 0.9 (<1.2) Result Diagrams: 01/05/22 06:30 01/05/22 06:30 Assessment and Plan Assessment: Assessment: Acute onset left upper extremity and lower extremity numbness and tingling Left upper extremity radiculopathy with pain radiating to the left shoulder C4-5, C5-6, and C6-7 degenerative disc disease with significant anterior osteo phytic spurring C4-5, C5-6, and C6-7 cervical stenosis C4-5 large posterior osteophytic spurring Fibromyalgia Hyperlipidemia Hypertension Renal disease Claustrophobia Chronic narcotic use Neuropathy in the hands and feet Obesity (1) Numbness and tingling of left upper and lower extremity Current Visit: Yes Status: Acute Code(s): R20.0 - ANESTHESIA OF SKIN; R20.2 - PARESTHESIA OF SKIN SNOMED Code(s): 66498208 (2) Degenerative cervical disc Current Visit: Yes Status: Acute Code(s): M50.30 - OTHER CERVICAL DISC DEGENERATION, UNSP CERVICAL REGION SNOMED Code(s): 73855404 (3) Cervical stenosis of spinal canal Current Visit: Yes Status: Acute Code(s): M48.02 - SPINAL STENOSIS, CERVICAL REGION SNOMED Code(s): 61422361 (4) Cervical osteophyte Current Visit: Yes Status: Acute Code(s): M25.78 - OSTEOPHYTE, VERTEBRAE SNOMED Code(s): 738156026906303 (5) Cervicalgia Current Visit: Yes Status: Acute Code(s): M54.2 - CERVICALGIA SNOMED Code(s): 67332740 (6) Fibromyalgia Current Visit: Yes Status: Acute Code(s): M79.7 - FIBROMYALGIA SNOMED Code(s): 591967852 (7) Hyperlipidemia Current Visit: Yes Status: Acute Code(s): E78.5 - HYPERLIPIDEMIA, UNSPECIFIED SNOMED Code(s): 73192054 (8) Hypertension Current Visit: Yes Status: Acute Code(s): I10 - ESSENTIAL (PRIMARY) HYPERTENSION SNOMED Code(s): 90701960 (9) Renal disease Current Visit: Yes Status: Acute Code(s): N28.9 - DISORDER OF KIDNEY AND URETER, UNSPECIFIED SNOMED Code(s): 32920614 (10) Claustrophobia Current Visit: Yes Status: Acute Code(s): F40.240 - CLAUSTROPHOBIA SNOMED Code(s): 63766419 (11) Chronic narcotic use Current Visit: Yes Status: Acute Code(s): F11.90 - OPIOID USE, UNSPECIFIED, UNCOMPLICATED SNOMED Code(s): 37708254 (12) Neuropathy Current Visit: Yes Status: Acute Code(s): G62.9 - POLYNEUROPATHY, UNSPECIFIED SNOMED Code(s): 119367511 (13) Obesity (BMI 30-39.9) Current Visit: Yes Status: Acute Code(s): E66.9 - OBESITY, UNSPECIFIED SNOMED Code(s): 699724437 Plan: Plan: 1. Patient has been experiencing new onset left upper extremity radiculopathy with pain radiating towards her left shoulder with numbness and tingling radiating down the left upper extremity and also down the left lower extremity which has been ongoing since around noon on 01/03/2022. She is not experiencing any significant weakness of the bilateral upper extremities or lower extremities. She is able to perform active range of motion of the upper extremities and lower extremities independently without difficulty. Review the CT imaging does show multilevel degenerative changes of her cervical spine most significant at C4-5, C5-6, and C6-7. She states she has undergone treatment previously in the outpatient setting in regards to her cervical spine including injections with pain management. She chronically takes Percocet 7.5 mg/325 mg 3 times a day as prescribed as needed for pain control. She states based on her known cervical changes there was some previous discussion about the possibility of surgical intervention. Reviewing of CT imaging of her cervical spine does show multilevel stenosis but could be better visualized on MRI imaging. Given her ongoing symptoms, degenerative changes at her cervical spine, and history of prolonged treatment and evaluation in regards to her cervical spine outpatient setting, will currently planned to obtain an MRI of the cervical spine for further evaluation. We discussed based upon her MRI imaging she may be a cand idate for further treatment and evaluation with pain management, physical therapy, and even the possibility for surgical intervention. Patient does admit to claustrophobia. We will prescribed Valium 5 mg 1-2 tabs which she may take prior to her scheduled MRI imaging. We did discuss that her acute left upper extremity and lower extremity numbness and tingling symptoms in detail. We did discuss her left upper extremity symptoms are most likely from her cervical spine however her left lower ext remity symptoms do not correlate well in regards to her cervical spine. Consultation has been placed with neurology and we did discuss in detail we think it is a good plan for her to have evaluation with neurology. CT imaging of the brain reports no acute intracranial abnormality. Neurology may plan for further testing at their discretion. 2. Patient is encouraged to continue using a walker to aid in ambulation as she uses a walker chronically 3. Patient will continue be seen by medicine for further treatment and evaluation Time with Patient: Greater than 30 (Including obtaining history, physical examination, reviewing of imaging, and dictation.)
[2022-01-05] MEDS: BISMUTH SUBSALICYLATE 4,192 MG/240 ML BOTTLE PO PRN ×2 (12:23→16:40)
--- NOTE | 2022-01-05 15:03 | PN ---
PROGRESS NOTE DATE OF SERVICE: 01/05/2022 This 76-year-old woman who was admitted with left-sided numbness secondary to cervical radiculopathy also had hypertension and multiple medical issues. No chest pain. No palpitations. No fever. Orthopedics has seen the patient. Neurology has been consulted. PHYSICAL EXAMINATION: Pulse is 71, blood pressure ntd, respiration 18. HEENT: Conjunctivae normal. NECK: No jugular venous distention. RESPIRATION: Breath sounds diminished at the bases. ABDOMEN: Soft. NERVOUS SYSTEM: No focal deficit. LABS: Reviewed. ASSESSMENT: 1. Left-sided numbness, cervical radiculopathy. 2. Hypertension. 3. Diabetes mellitus, type 2. 4. Bilateral peripheral neuropathy. 5. Fibromyalgia. RECOMMENDATIONS AND DISCUSSION: I recommend to continue current medications, continue with the monitoring, symptomatic treatment. Neurology evaluation, otherwise add Norvasc to the current regimen. Repeat labs. Closely follow with Orthopedic Surgery. Further recommendations to follow. MMODL / IJN: [id number] / MTDD
[2022-01-05] MEDS: HEPARIN SODIUM,PORCINE/PF 5,000 UNIT/0.5 ML SYRINGE SQ SCH ×2 (15:18→19:53)
[2022-01-05] MEDS: PANTOPRAZOLE 40 MG/10 ML VIAL IVP SCH ×2 (15:18→19:53)
[2022-01-05] MEDS: amLODIPine 10 MG TAB PO SCH (15:19)
[2022-01-05 17:13] LABS: Glucose,Whole Blood 164 mg/dL (75-99)
[2022-01-05 20:46] LABS: Glucose,Whole Blood 127 mg/dL (75-99)
--- NOTE | 2022-01-05 22:27 | P.CNNES ---
History of Present Illness Consult date: 01/05/22 Requesting physician: Jeanmarie Chavez Reason for Consult: Left arm and left leg numbness History of Present Illness: Patient is a 76-year-old female came to the hospital by ambulance day before yesterday, on 01/03/2022 at 2:19 PM complaining of left shoulder and arm pain, also pain to her left leg. She felt it was numb the day prior, worse than her normal neuropathy pain and numbness. Patient stated that it was in the afternoon sometime when it started. Examination per EMS staff reveals slightly softer rubber block layer on the left. Normal speech. No droop. EKG shows sinus rhythm. Blood glucose 131. Blood pressure 138/83, pulse 86, respirations [address] head showed mild cerebral atrophy. No acute intracranial abnormality. CT of the cervical spine showed multilevel spondylotic changes and neural foraminal stenosis. There is evidence of significant C4 5 bony spinal stenosis. These more mild stenosis at C5 6 and C6 7. No fracture. Spurring overall not significantly different than on exam. EKG shows sinus rhythm. Low QRS voltage. Chest x-ray showed no active cardiopulmonary disease. Normal heart. Blood test shows WBC 9.97, hemoglobin 12.0, elevated MCV 100.3, platelets 221. Chem-7 is normal, hemoglobin A1c 6.2, TSH normal 2.34. Her previous B12 was 230 on 09/11/2016 and 218 on 09/27/2014. Patient states that her symptoms of neuropathy started about 3 years ago with in volvement of the bottom of the feet. A year later her hands are also affected, but mainly involving the fingers only. She has some numbness in the calves posteriorly for the last 1 year. Patient is not very sure about her symptoms. She never paid any attention to her symptoms, therefore the time frames mentioned above in the distribution of symptoms are just very estimated guesses. Even she was not sure of the current symptoms she has. She has been using walker for last 2-1/2 years since her neuropathy started. Patient denies any muscle weakness, but states "when she moves sometimes, feels straining in the muscles". Denies any recent falls. Patient admits to having neck pain for the last 3 years, which is uncomfortable. Only when she turns it the wrong way, it can go up to 9/10. Patient states that on Wednesday, 2 days ago she was sitting watching TV at noon when she developed numbness of the left arm and hand. She could not tell the distribution of numbness, involves the whole arm "more or less". Patient has not seen any neurologist for her neuropathy, only see "pain management", although does not have any pain in the extremities. Patient has history of diabetes for 25 years, denies any alcohol use. She was a light smoker, quit in 1984. Review of Systems As mentioned above in HPI. All other 14 point review of systems reviewed and un remarkable. She does complain of tiredness, fatigue. Denies any recent falls. She says that she did fall down stairs in her late 20s, but has no residual deficits. Past Medical History Past Medical History: Diabetes Mellitus, Fibromyalgia, Hyperlipidemia, Hypertension, Osteoarthritis (OA), Renal Disease Additional Past Medical History / Comment(s): NIDDM type II, neuropathy in hands and feet bilaterally, chronic low back and leg pain. History of Any Multi-Drug Resistant Organisms: None Reported Past Surgical History: Cholecystectomy Additional Past Surgical History / Comment(s): D & C, right hand tendon surgery, low back injections, pain procedures. Past Anesthesia/Blood Transfusion Reactions: No Reported Reaction Past Psychological History: Anxiety, Depression Additional Psychological History / Comment(s): Pt. resides alone. She ambulates with a walker. She does not drive, she gets to appts by friends or bus. Smoking Status: Never smoker Past Alcohol Use History: None Reported Additional Past Alcohol Use History / Comment(s): Pt. started smoking as a teen and quit in 1987. Past Drug Use History: None Reported - Past Family History Father Family Medical History: Cancer Additional Family Medical History / Comment(s): Pt states her family was estranged from her. She knows her father had cancer but not what type. Mother History Unknown: Yes Medications and Allergies Home Medications Medication Instructions Recorded Confirmed Type oxyCODONE HCL/ACETAMINOPHEN 1 tab PO TID 03/24/17 01/03/22 History [Percocet 7.5-325 mg] glipiZIDE XL [Glucotrol XL] 5 mg PO DAILY 11/06/18 01/03/22 History Atorvastatin [Lipitor] 40 mg PO DAILY 07/15/19 01/03/22 History Furosemide [Lasix] 20 mg PO DAILY 07/15/19 01/03/22 History Allopurinol [Zyloprim] 300 mg PO DAILY 01/03/22 01/03/22 History Alpha Lipoic Acid 600 mg PO DAILY 01/03/22 01/03/22 History Enalapril Maleate 10 mg PO DAILY 01/03/22 01/03/22 History Ferrous Sulfate [Iron (65 MG 325 mg PO DAILY 01/03/22 01/03/22 History Elemental)] Ketoconazole 2% Shampoo [Nizoral] 1 applic TOPICAL Q7D 01/03/22 01/03/22 History Meloxicam [Mobic] 15 mg PO DAILY 01/03/22 01/03/22 History metFORMIN HCL [Glucophage] 500 mg PO DAILY 01/03/22 01/03/22 History Allergies Allergy/AdvReac Type Severity Reaction Status Date / Time glimepiride Allergy Mild Unknown Verified 01/03/22 18:45 ibuprofen Allergy Unknown Verified 01/03/22 18:45 Emkebkn-QCY-CkA Reductase Allergy Unknown Verified 01/03/22 18:45 Inhibitor [Zcoghps-Pmi-Uyt Reductase Inhibitor] Sulfa (Sulfonamide Allergy Unknown Verified 01/03/22 18:45 Antibiotics) metformin AdvReac Unknown Verified 01/03/22 18:45 tizanidine AdvReac LOW BLOOD Verified 01/03/22 18:45 PRESSURE/SLEEPY Physical Examination - Vital Signs Vital Signs: Vital Signs Temp Pulse Resp BP Pulse Ox 01/05/22 04:53 98.1 F 71 18 170/67 98 01/04/22 20:35 98.1 F 69 16 159/80 95 01/04/22 19:35 69 16 01/04/22 13:00 98.5 F 64 16 152/70 93 L Intake and Output 01/04/22 01/05/22 01/05/22 22:59 06:59 14:59 Other: Voiding Method Toilet Bedside Commode # Voids 5 4 1 # Bowel Movements 1 Patient is an elderly female, in no acute distress. Patient is alert awake oriented to time place and person. Speech and language functions are normal. Attention, concentration and fund of knowledge is adequate. On cranial examination, pupils are equal, round and reacting to light, visual eaton are full on confrontation, with no neglect on double simultaneous stimu lation. Her extraocular muscles are intact with no nystagmus. Face is symmetric, tongue protrudes to the midline. Palatal elevation and sensation normal, hearing and shoulder shrug normal, facial sensation normal. Patient does have a dystonic "no-no" head tremor. On muscle strength testing, there is no pronator drift and the strength is normal in arms and legs distally and proximally. Deep tendon reflexes are trace at the biceps and brachioradialis and knees, absent ankles and plantars are flat bilaterally. Sensory to touch is decreased distally in the feet, but normal elsewhere, inclu ding upper extremities. Cerebellar function showed no ataxia for dswpms-vb-ouom testing. Tone and bulk of muscles normal. Gait deferred. On general examination, there is no carotid bruit or murmur, S1-S2 audible. Abdomen is soft nontender. No organomegaly, bowel sounds present. Chest is clear to auscultation. Patient has very significant peripheral edema bilaterally. Peripheral pulses could not be felt due to edema. Results - Laboratory Findings CBC and BMP: 01/05/22 06:30 01/05/22 06:30 Abnormal Lab Findings: Abnormal Labs 01/03/22 01/03/22 01/03/22 14:38 14:38 14:38 RBC MCV MCHC Neutrophils # 9.2 H Lymphocytes # 0.6 L Creatinine 1.06 H Est GFR (CKD-EPI)NonAf Glucose 121 H POC Glucose (mg/dL) Hemoglobin A1c Urine Appearance Cloudy H Ur Leukocyte Esterase Moderate H Urine WBC 9 H Urine Bacteria Few H Urine Mucus Rare H 01/04/22 01/04/22 01/04/22 07:37 12:06 20:06 RBC MCV MCHC Neutrophils # Lymphocytes # Creatinine Est GFR (CKD-EPI)NonAf Glucose POC Glucose (mg/dL) 115 H 116 H 142 H Hemoglobin A1c Urine Appearance Ur Leukocyte Esterase Urine WBC Urine Bacteria Urine Mucus 01/05/22 01/05/22 01/05/22 06:30 06:30 06:30 RBC 3.84 L MCV 100.3 H MCHC 31.2 L Neutrophils # 8.14 H Lymphocytes # Creatinine Est GFR (CKD-EPI)NonAf 55.1 L Glucose POC Glucose (mg/dL) Hemoglobin A1c 6.2 H Urine Appearance Ur Leukocyte Esterase Urine WBC Urine Bacteria Urine Mucus 01/05/22 11:06 RBC MCV MCHC Neutrophils # Lymphocytes # Creatinine Est GFR (CKD-EPI)NonAf Glucose POC Glucose (mg/dL) 145 H Hemoglobin A1c Urine Appearance Ur Leukocyte Esterase Urine WBC Urine Bacteria Urine Mucus Assessment and Plan Assessment: * New onset neck and radicular pain left arm. Possible radiculopathy. * Peripheral neuropathy * Diabetes * B12 deficiency * Obesity * Peripheral edema * Fibromyalgia * Hyperlipidemia * Hypertension * Osteoarthritis Plan: * Patient has been seen by orthopedic surgery. MRI of the cervical spine initiated for possible spinal stenosis/radiculopathy. * Patient's peripheral neuropathy is probably related to B12 deficiency. We will repeat B12, folate level. Also check an MMA and B6 levels. * We will start B12 1000 g IM daily for 3 days. She should continue with B12 injections 1000 g, at least twice a month. * Recommend patient follow up with neurologist as an outpatient as well. May benefit from EMG testing of upper and lower extremities. * We will follow. Thank you for the consult.
[2022-01-06 07:00] LABS: Glucose,Whole Blood 102 mg/dL (75-99)
[2022-01-06] MEDS: HYDROmorphone 1 MG/ML 1 ML SYRINGE IVP PRN (07:08)
[2022-01-06] MEDS: metFORMIN 500 MG TAB PO SCH (08:41)
[2022-01-06] MEDS: ATORVASTATIN 40 MG TAB PO SCH (08:41)
[2022-01-06] MEDS: FERROUS SULFATE 325 MG TAB PO SCH (08:41)
[2022-01-06] MEDS: PANTOPRAZOLE 40 MG/10 ML VIAL IVP SCH ×2 (08:41→20:15)
[2022-01-06] MEDS: HEPARIN SODIUM,PORCINE/PF 5,000 UNIT/0.5 ML SYRINGE SQ SCH ×2 (08:41→20:15)
[2022-01-06] MEDS: allopurinoL 300 MG TAB PO SCH (08:41)
[2022-01-06] MEDS: FUROSEMIDE 20 MG TAB PO SCH (08:41)
[2022-01-06] MEDS: amLODIPine 10 MG TAB PO SCH (08:41)
[2022-01-06] MEDS: lisinopriL 10 MG TAB PO SCH (08:41)
--- NOTE | 2022-01-06 08:56 | P.PN ---
Progress Note - Text Progress Note Date: 01/06/22 Orthopedic spine: History of present illness: Patient is a very pleasant 76-year-old female who is seen and examined at bedside for follow-up evaluation of her cervical spine. She has not had any significant change in regards to her cervical spine or extremities as compared to being seen and examined yesterday. Since her admission to the hospital she does not feel her numbness and tingling symptoms have improved. She states she has some cervical pain with pain radiating towards the left shoulder with numbness and tingling radiating down the entire left upper extremity. She does have some numbness and tingling down the left lower extremity as well. She does have difficulty describing the numbness and tingling specifically in the lower extremities as she does admit to bilateral neuropathy in the lower extremities. She states she does have some neuropathy in her hands. She is planning for MRI imaging of the cervical spine today. Patient does state she would like to proceed forward with the MRI as scheduled but would also like to be discharged home today if she is cleared to do so. She does feel she can manage her symptoms at home. She continues to is seen by neurology. She denies any specific upper extremity or lower extremity weakness bilaterally. She does have some chronic difficulty with ambulation and uses a walker to aid in ambulation. She denies any slurred speech. Patient's other medical diagnoses include diab etes mellitus, fibromyalgia, hyperlipidemia, hypertension, renal disease, and claustrophobia. She denies having a pacemaker. Patient history: Patient states at noon on 01/03/2022, she was sitting at home when she began to experience numbness and tingling in her left upper extremity and left lower extremity. She was concerned for strokelike symptoms and presented to the emergency department for further evaluation. She has undergone numerous testing during her presentation to the emergency department and admission to the hospital. CT of the head showed no acute intracranial abnormality. Patient states stroke was ruled out. EKG was in normal sinus rhythm. Patient states she is known have degenerative changes in her cervical spine. She previously worked her treatment with Dr. Frias in pain management in the outpatient setting and had injections at her cervical spine. She states her was some discussion previously about the possibility of surgical intervention at her cervical spine. After Dr. Frias left the area she continues to take pain medication for pain control including Percocet 7.5 mg/325 mg 3 times a day as prescribed by her primary care provider. She did have CT imaging of her cervical spine since her admission and hospital which did show multilevel degenerative change at her cervical spine. Physical exam: Patient is awake, alert, and oriented 3 Vital signs stable Good chest excursion with deep inspiration and expiration Examination of the cervical spine reveals skin is intact with no abrasions, lacerations, or bruises; no erythema, purulence or signs of infection palpation of the posterior cervical spine Full range of motion of the cervical spine with adequate flexion, extension, and bilateral rotation Ecg Technician strength, thumb strength, interosseous strength, biceps strength, triceps strength, and shoulder strength positive sustained bilaterally Upper extremity strength 5/5 bilaterally Biceps reflex 1+ bilaterally and Brachioradialis reflexes 1+ bilaterally No upper extremity hyperreflexia bilaterally Hoffmans sign negative upper extremity bilaterally No signs or symptoms of DVT; no calf pain Patient is able to perform good active range of motion bilateral lower extremities without difficulty Pertinent studies: CT of the cervical spine taken on 01/04/2022: C4-5 degenerative disc disease, large anterior osteophytic spurring, and large posterior spurring resulting in central stenosis; C5-6 and C6-7 significant degenerative disc disease with large anterior osteophytic spurring was stenosis; T2-3 large anterior osteoarthritic spurring Assessment: Acute onset left upper extremity and lower extremity numbness and tingling Left upper extremity radiculopathy with pain radiating to the left shoulder C4-5, C5-6, and C6-7 degenerative disc disease with significant anterior osteophytic spurring C4-5, C5-6, and C6-7 cervical stenosis C4-5 large posterior osteophytic spurring Fibromyalgia Hyperlipidemia Hypertension Renal disease Claustrophobia Chronic narcotic use Neuropathy in the hands and feet Obesity Plan: 1. Patient has been experiencing new onset left upper extremity radiculopathy with pain radiating towards her left shoulder with numbness and tingling radiating down the left upper extremity and also down the left lower extremity which has been ongoing since around noon on 01/03/2022. She is not experiencing any significant weakness of the bilateral upper extremities or lowe r extremities. She is able to perform active range of motion of the upper extremities and lower extremities independently without difficulty. She is not experiencing any neurological loss. Review the CT imaging does show multilevel degenerative changes of her cervical spine most significant at C4-5, C5-6, and C6-7. She states she has undergone treatment previously in the outpatient setting in regards to her cervical spine including injections with pain management. She chronically takes Percocet 7.5 mg/325 mg 3 times a day as prescribed as needed for pain control. She states based on her known cervical changes there was some previous discussion about the possibility of surgical intervention. Reviewing of CT imaging of her cervical spine does show multilevel stenosis but could be better visualized on MRI imaging. Given her ongoing symptoms, degenerative changes at her cervical spine, and history of prolonged treatment and evaluation in regards to her cervical spine outpatient setting, will currently planned to obtain an MRI of the cervical spine for further evaluation. We discussed based upon her MRI imaging she may be a candidate for further treatment and evaluation with pain management, physical therapy, and even the possibility for surgical intervention. Patient does admit to claustrophobia. We will prescribed Valium 5 mg 1-2 tabs which she may take prior to her scheduled MRI imaging. MRI is currently scheduled to be performed today. We did discuss that her acute left upper extremity and lower extremity numbness and tingling symptoms in detail. We did discuss her left upper extremity symptoms are most likely from her cervical spine however her left lower extremity symptoms do not correlate well in regards to her cervical spine. We did discuss of the bedside she is not having any specific neurological loss. She is not experiencing any significant weakness of the bilateral upper extremities or lower extremities. She is able to perform active range of motion of the upper extremities and lower extremities independently without difficulty. Not currently planning for acute surgical intervention regards to her cervical spine. Patient with prophylactic surgical intervention. She is asking for clearance for discharge home today following her MRI. We did discuss we could plan to review her cervical MRI and clear her for discharge home today for an orthopedic spine standpoint with plans to have her follow-up in the outpatient setting in approximately 2-3 weeks for further evaluation. Patient may follow- up with Josias Cardona PA-C or Dr. Yamil Moyer at [facility] in 2-3 weeks following discharge. 2. Patient will continue to be seen and examined by neurology who may plan for further testing at their discretion. 3. Patient is encouraged to continue using a walker to aid in ambulation as she uses a walker chronically 4. Patient will continue be seen by medicine for further treatment and evaluation
[2022-01-06 09:47] LABS: Glucose,Whole Blood 168 mg/dL (75-99)
[2022-01-06] MEDS: MELOXICAM 7.5 MG TAB PO SCH (10:25)
[2022-01-06 10:44] LABS: Basophils # (A) 0.02 X 10*3/uL (0.00-0.10); Basophils % (A) 0.2 %; Eosinophils # (A) 0.21 X 10*3/uL (0.04-0.35); Eosinophils % (A) 2.2 %; HCT 36.5 % (37.2-46.3); HGB 11.6 g/dL (12.0-15.0); Immature Grans, Automated 0.3 %; Lymphocytes # (A) 0.89 X 10*3/uL (0.90-5.00); Lymphocytes % (A) 9.1 %; MCH 31.5 pg (27.0-32.0); MCHC 31.8 g/dL (32.0-37.0); MCV 99.2 fL (80.0-97.0); Monocytes # (A) 0.56 X 10*3/uL (0.20-1.00); Monocytes % (A) 5.7 %; NRBC Per 100 WBC 0 /100 WBCS (0.0-0.0); Neutrophils # (A) 8.03 X 10*3/uL (1.80-7.70); Neutrophils % (A) 82.5 %; Platelet Count 218 X 10*3/uL (140-440); RBC 3.68 X 10*6/uL (4.10-5.20); WBC 9.74 X 10*3/uL (4.50-10.00)
[2022-01-06] MEDS ORDERED: diazePAM 5 MG TAB PO PRN (11:14)
[2022-01-06 12:07] LABS: Glucose,Whole Blood 124 mg/dL (75-99)
[2022-01-06 12:21] LABS: African American GFR (CKD) 63.8 (60.0-200.0); Anion Gap 16.6 mmol/L (10.00-18.00); BUN/Creat Ratio 16.5 Ratio (12.00-20.00); Blood Urea Nitrogen 16.5 mg/dL (9.0-27.0); Carbon Dioxide 22.4 mmol/L (20.0-27.5); Non-African American GFR(CKD) 55.1 (60.0-200.0); Potassium 4.5 mmol/L (3.5-5.5)
--- NOTE | 2022-01-06 13:13 | MR ---
EXAMINATION TYPE: MR cervical spine wo con DATE OF EXAM: 01/06/2022 COMPARISON: CT 01/04/2022 HISTORY: Neck pain, LUE radiculopathy. TECHNIQUE: Multiplanar, multisequence images of the cervical spine were acquired without contrast. C2-C3: Some mild right-sided foraminal encroachment present due to facet arthropathy, uncovertebral j oint hypertrophy. No significant spinal stenosis or evident disc herniation. No significant spinal st enosis. C3-C4: There is a posterior central disc herniation present contacting the anterior cervical cord. So me right-sided foraminal encroachment is present due to uncovertebral joint hypertrophy and facet art hropathy change. No definite spinal stenosis. C4-C5: Right posterior paracentral disc herniation is present, there is posterior extension endplate disc complex causing anterior mass effect on the thecal sac, there is severe spinal stenosis present, bilateral uncovertebral joint hypertrophy and facet arthropathy change results in foraminal encroach ment. C5-C6: Moderate central canal stenosis is present, there is posterior extension of endplate disc comp dai, eccentric extension of endplate disc complex towards the right is present, there is bilateral fo raminal encroachment due to uncovertebral joint hypertrophy and facet arthropathy. C6-C7: Left posterior paracentral extension endplate disc complex results in anterolateral mass effec t on the thecal sac, contact with the cervical cord, there is moderate central canal stenosis. Left-s ided greater than right foraminal encroachment is present. C7-T1: No evidence for degenerative disc disease. No disc bulge/herniation or protrusion. No Canal stenosis. Foramina are patent bilaterally. There is facet arthropathy are present on the left. Cervical segments are intact. Cervical vertebral bodies show preserved height, there is multilevel sp ondylosis with endplate discogenic marrow signal change, loss of disc height signal is greatest at C4 -5, C5-6 and C6-7 consistent with disc desiccation and degenerative disc disease. There is a spinal c urvature.. Cervical spinal cord is of normal signal. Craniovertebral junction relationships are wit hin normal limits. IMPRESSION: Multilevel significant degenerative disc disease and spinal stenosis greatest at C4-5, multilevel for aminal encroachment, facet arthropathy
--- NOTE | 2022-01-06 13:23 | PN ---
PROGRESS NOTE DATE OF SERVICE: 01/06/2022 This 76-year-old woman was admitted with significant left-sided numbness and severe pain, also had MRI done today. The final reports are pending. No chest pain. No palpitations. No fever. EXAM: Pulse is 79, blood pressure 137/83, respiration 20. HEENT: Conjunctivae normal. Neck: No JVD. Cardiovascular: S1, S2 muffled. Respiration: Breath sounds diminished in the bases. Abdomen: Soft. Nervous system: No focal deficits. LABS: Hemoglobin 11.6. ASSESSMENT: 1. Left-sided numbness, cervical radiculopathy. 2. Hypertension. 3. Diabetes mellitus, type 2. 4. Peripheral neuropathy, bilateral. 5. Fibromyalgia. RECOMMENDATIONS AND DISCUSSION: Recommend to continue current medications, pain management. Closely follow with Orthopedic surgery. Otherwise, await MRI report. Prognosis guarded. Further recommendations to follow. MMODL / IJN: [id number] /
[2022-01-06] MEDS: BISMUTH SUBSALICYLATE 4,192 MG/240 ML BOTTLE PO PRN ×2 (14:38→17:33)
[2022-01-06] MEDS ORDERED: HYDROmorphone 0.5 MG/0.5 ML SYRINGE IVP PRN (15:48)
[2022-01-06 16:39] LABS: Glucose,Whole Blood 141 mg/dL (75-99)
[2022-01-06] MEDS: HYDROcodone/APAP 5-325MG 1 EACH TAB PO PRN (20:16)
[2022-01-06 20:30] LABS: Glucose,Whole Blood 163 mg/dL (75-99)
[2022-01-07] MEDS: HYDROcodone/APAP 5-325MG 1 EACH TAB PO PRN ×2 (01:37→08:30)
[2022-01-07 02:33] VITALS: RESP 18
[2022-01-07 07:18] LABS: Glucose,Whole Blood 123 mg/dL (75-99)
[2022-01-07] MEDS: MELOXICAM 7.5 MG TAB PO SCH (08:17)
[2022-01-07] MEDS: ATORVASTATIN 40 MG TAB PO SCH (08:17)
[2022-01-07] MEDS: lisinopriL 10 MG TAB PO SCH (08:18)
[2022-01-07] MEDS: FUROSEMIDE 20 MG TAB PO SCH (08:18)
[2022-01-07] MEDS: allopurinoL 300 MG TAB PO SCH (08:18)
[2022-01-07] MEDS: amLODIPine 10 MG TAB PO SCH (08:18)
[2022-01-07] MEDS: metFORMIN 500 MG TAB PO SCH (08:18)
[2022-01-07] MEDS: FERROUS SULFATE 325 MG TAB PO SCH (08:18)
[2022-01-07] MEDS: PANTOPRAZOLE 40 MG/10 ML VIAL IVP SCH (08:19)
[2022-01-07] MEDS: HEPARIN SODIUM,PORCINE/PF 5,000 UNIT/0.5 ML SYRINGE SQ SCH (08:19)
[2022-01-07 08:27] VITALS: BP 145/62; PULSE 64; TEMP 97.8
--- NOTE | 2022-01-07 10:34 | P.PN ---
Progress Note - Text Progress Note Date: 01/07/22 Orthopedic spine: History of present illness: Patient is a very pleasant 76-year-old female who is seen and examined at bedside for follow-up evaluation of her cervical spine. She has not had any significant change in regards to her cervical spine or extremities as compared to being seen and examined yesterday. Since her admission to the hospital she does not feel her numbness and tingling symptoms have significant change. She states she has some cervical pain with pain radiating towards the left shoulder with numbness and tingling radiating down the entire left upper extremity. She does have some numbness and tingling down the left lower extremity as well. She does have difficulty describing the numbness and tingling specifically in the lower extremities as she does admit to bilateral neuropathy in the lower extremities. She states she does have some neuropathy in her hands. She did have MRI imaging of the cervical spine performed yesterday. This has been reviewed. MRI is also been discussed in detail with the patient at the bedside today. She continues to feel her symptoms are currently stable enough that she would like to be discharged home today. She does feel she can manage her symptoms at home. She continues to is seen by neurology and medicine. She denies any specific upper extremity or lower extremity weakness bilaterally. She does have some chronic difficulty with ambulation and uses a walker to aid in ambulation. She denies any slurred speech. Patient's other medical diagnoses include diabetes mellitus, fibromyalgia, hyperlipidemia, hypertension, renal disease, and claustrophobia. She denies having a pacemaker. Patient history: Patient states at noon on 01/03/2022, she was sitting at home when she began to experience numbness and tingling in her left upper extremity and left lower extremity. She was concerned for strokelike symptoms and presented to the emergency department for further evaluation. She has undergone numerous testing during her presentation to the emergency department and admission to the hospital. CT of the head showed no acute intracranial abnormality. Patient states stroke was ruled out. EKG was in normal sinus rhythm. Patient states she is known have degenerative changes in her cervical spine. She previously worked her treatment with Dr. Frias in pain management in the outpatient setting and had injections at her cervical spine. She states her was some discussion previously about the possibility of surgical intervention at her cervical spine. After Dr. Frias left the area she continues to take pain me dication for pain control including Percocet 7.5 mg/325 mg 3 times a day as prescribed by her primary care provider. She did have CT imaging of her cervical spine since her admission and hospital which did show multilevel degenerative change at her cervical spine. Physical exam: Patient is awake, alert, and oriented 3 Vital signs stable Good chest excursion with deep inspiration and expiration Examination of the cervical spine reveals skin is intact with no abrasions, lacerations, or bruises; no erythema, purulence or signs of infection palpation of the posterior cervical spine Full range of motion of the cervical spine with adequate flexion, extension, and bilateral rotation Community Service Specialist strength, thumb strength, interosseous strength, biceps strength, triceps strength, and shoulder strength positive sustained bilaterally Upper extremity strength 5/5 bilaterally Biceps reflex 1+ bilaterally and Brachioradialis reflexes 1+ bilaterally No upper extremity hyperreflexia bilaterally Hoffmans sign negative upper extremity bilaterally No signs or symptoms of DVT; no calf pain Patient is able to perform good active range of motion bilateral lower extremities without difficulty Pertinent studies: MRI of the cervical spine taken on 01/06/2022: C3-4 posterior disc herniation with spondylosis without significant stenosis; C4-5 degenerative disc disease and large right paracentral herniated nucleus pulposus with spondylosis resulting in severe central canal stenosis and severe left neural foraminal stenosis; C5-6 degenerative disc disease, disc desiccation, disc bulging, and spondylosis resulting in moderate central stenosis and bilateral neural foraminal stenosis; C6-7 degenerative disc disease, disc desiccation, spondylosis, and left paracentral disc herniation resulting in moderate central canal stenosis and left neural foraminal stenosis; cervical spinal cord appears to be of normal signal CT of the cervical spine taken on 01/04/2022: C4-5 degenerative disc disease, large anterior osteophytic spurring, and large posterior spurring resulting in central stenosis; C5-6 and C6-7 significant degenerative disc disease with large anterior osteophytic spurring was stenosis; T2-3 large anterior osteoarthritic spurring Assessment: Acute onset left upper extremity and lower extremity numbness and tingling Left upper extremity radiculopathy with pain radiating to the left shoulder C4-5, C5-6, and C6-7 degenerative disc disease with significant anterior osteophytic spurring C4-5, C5-6, and C6-7 cervical stenosis C4-5 large posterior osteophytic spurring Fibromyalgia Hyperlipidemia Hypertension Renal disease Claustrophobia Chronic narcotic use Neuropathy in the hands and feet Obesity Plan: 1. Patient has been experiencing new onset left upper extremity radiculopathy with pain radiating towards her left shoulder with numbness and tingling radiating down the left upper extremity and also down the left lower extremity which has been ongoing since around noon on 01/03/2022. She is not experiencing any significant weakness of the bilateral upper extremities or lower extremities. She is able to perform active range of motion of the upper extremities and lower extremities independently without difficulty. She is not experiencing any neurological loss. Review the CT imaging does show multilevel degenerative changes of her cervical spine most significant at C4-5, C5-6, and C6-7. She states she has undergone treatment previously in the outpatient setting in regards to her cervical spine including injections with pain management. She chronically takes Percocet 7.5 mg/325 mg 3 times a day as prescribed as needed for pain control. She states based on her known cervical changes there was some previous discussion about the possibility of surgical intervention. Reviewing of CT imaging of her cervical spine does show multilevel stenosis but could be better visualized on MRI imaging. She had MRI imaging performed yesterday. This has been reviewed and discussed with her the bedside. Patient does have significant changes at her cervical spine most significant at C4-5, C5-6, and C6-7. Patient states she was a candidate for surgical intervention previously regards to her cervical spine. Based on her imaging and symptoms, she could be a candidate for surgical intervention at her cervical spine at this time. Patient not currently experiencing any significant neurological loss or decline. She has good active range of motion of bilateral upper extremities. She has no upper extremity weakness bilaterally. She does continue to have some left upper extremity radiculopathy. Patient states she would like to be discharged home today if cleared by medicine and schedule follow-up evaluation outpatient setting. We did discuss she is cleared for discharge from orthopedic spine standpoint and we will plan have her follow-up in the outpatient setting approximately 2-3 weeks for further evaluation. We did discuss that her acute left upper extremity and lower extremity numbness and tingling symptoms in detail. We did discuss her left upper extremity symptoms are stemming from her cervical spine however her left lower extremity symptoms do not correlate well in regards to her cervical spine. We did discuss of the bedside she is not having any specific neurological loss. She is not experiencing any significant weakness of the bilateral upper extremities or lower extremities. She is able to perform active range of motion of the upper extremities and lower extremities independently without difficulty. She could continue to follow with neurology for evaluation as needed. 2. Patient will continue to be seen and examined by neurology who may plan for further testing at their discretion. 3. Patient is encouraged to continue using a walker to aid in ambulation as she uses a walker chronically 4. Patient will continue be seen by medicine for further treatment and evaluation
--- NOTE | 2022-01-07 10:56 | P.PN ---
Subjective Progress Note Date: 01/06/22 Patient was seen for a follow-up. Patient denies any new neurological symptoms. States she did not sleep well last night. Objective - Vital Signs Vital signs: Vital Signs Temp 97.8 F 01/07/22 07:00 Pulse 64 01/07/22 07:00 Resp 18 01/07/22 07:00 BP 145/62 01/07/22 07:00 Pulse Ox 98 01/07/22 07:00 FiO2 Intake & Output 01/06/22 01/07/22 01/07/22 18:59 06:59 18:59 Intake Total 720 Balance 720 Intake: Oral 720 Other: Voiding Method Toilet Bedside Commode # Voids 3 2 - Exam Examination unchanged. - Labs CBC & Chem 7: 01/06/22 07:33 01/06/22 07:33 Labs: Abnormal Lab Results - Last 24 Hours (Table) 01/06/22 01/06/22 01/06/22 Range/Units 07:33 12:06 16:37 Est GFR (CKD-EPI)NonAf 55.1 L (60.0-200.0) POC Glucose (mg/dL) 124 H 141 H (75-99) mg/dL 01/06/22 01/07/22 Range/Units 20:28 07:16 Est GFR (CKD-EPI)NonAf (60.0-200.0) POC Glucose (mg/dL) 163 H 123 H (75-99) mg/dL Assessment and Plan Assessment: * New onset neck and radicular pain left arm. Possible radiculopathy. * Peripheral neuropathy * Diabetes * B12 deficiency * Obesity * Peripheral edema * Fibromyalgia * Hyperlipidemia * Hypertension * Osteoarthritis Plan: * Patient has been seen by orthopedic surgery. Await MRI of the cervical spine. * Patient's peripheral neuropathy is probably related to B12 deficiency. * B12 236, folate, MMA and B6 levels pending. * We will start B12 1000 g IM daily for 3 days. She should continue with B12 injections 1000 g, at least twice a month. * Recommend patient follow up with neurologist as an outpatient as well. May benefit from EMG testing of upper and lower extremities.
--- NOTE | 2022-01-09 10:29 | P.DS ---
Providers Date of admission: 01/06/22 11:58 Expected date of discharge: 01/07/22 Attending physician: Jeanmarie Chavez Consults: 01/04/22 16:28 Consult Physician Routine Consulting Provider: Silvano Morris Consult Reason/Comments: left arm and left leg numbness Do you want consulting provider notified?: Yes 01/05/22 10:28 Consult Physician Urgent Consulting Provider: Maxine Moyer Consult Reason/Comments: spinal stenosis, pain Do you want consulting provider notified?: Yes Primary care physician: Lilly Neves Hospital Course: Final diagnosis Left-sided numbness, cervical radiculopathy Hypertension signed diabetes mellitus, type II Multilevel degenerative disc disease and spinal stenosis greatest at C4-5 with facet arthropathy as noted on MRI Peripheral neuropathy, bilateral Fibromyalgia Discharge disposition Patient is being discharged in a stable condition with guarded prognosis to home. Patient will follow-up with Dr. Neves in the outpatient setting upon di scharge. Patient is to follow-up with orthopedics Joseph Cardona in the outpatient setting as well. Total time taken is greater than 35 minutes. Hospital course This is a 76-year-old female who was recently admitted with significantly left- sided numbness and severe pain and also underwent lumbar spine MRI with orthopedics following. MRI showed multilevel significant degenerative disc disease and spinal stenosis greatest at C4-5 with multilevel for minimal encroachment and facet arthropathy. Patient with cervical Radiculopathy and had discussion with orthopedics recommending conservative management at this time and will follow-up in the outpatient setting to discuss further options going forward. Patient reports to feeling better and would like to be discharged today. Encourage the patient follow-up with primary care provider on discharge as well. Currently no reports of chest pain, shortness of breath, or palpitations. Patient is afebrile. No reports of nausea or vomiting and pat ient is tolerating diet. Patient will be discharged home today. On exam vital signs are stable. Cardio S1, S2 are muffled. Respiratory system shows diminished breath sounds at the bases with no wheezing or rhonchi noted. Abdomen is soft and obese, and nontender. Nervous system shows no focal deficits. Please refer to medication reconciliation sheet for a list of medications. The impression and plan of care has been dictated by Liv Lucsa, Nurse Practitioner as directed. Dr. Amari MD I have performed a history and examination and MDM of this patient, discussed the same with the dictator, and agree with the dictator's assessment and plan as written ,documented as a scribe. Based on total visit time, I have performed more than 50% of the visit. Patient Condition at Discharge: Stable Plan - Discharge Summary Discharge Rx Participant: No New Discharge Prescriptions: New Bismuth Subsalicylate [Bismatrol] 524 mg PO Q1HR PRN ml PRN Reason: Diarrhea amLODIPine [Norvasc] 10 mg PO DAILY 30 Days #30 tab methylPREDNISolone Dose Pack [Medrol Dose Pack] 4 mg PO DIRECTED #21 tab HYDROcodone/APAP 5-325MG [[place] 5-325] 1 each PO Q6HR PRN #9 tab PRN Reason: Pain Continue oxyCODONE HCL/ACETAMINOPHEN [Percocet 7.5-325 mg] 1 tab PO TID glipiZIDE XL [Glucotrol XL] 5 mg PO DAILY Furosemide [Lasix] 20 mg PO DAILY Atorvastatin [Lipitor] 40 mg PO DAILY metFORMIN HCL [Glucophage] 500 mg PO DAILY Ketoconazole 2% Shampoo [Nizoral] 1 applic TOPICAL Q7D Allopurinol [Zyloprim] 300 mg PO DAILY Meloxicam [Mobic] 15 mg PO DAILY Ferrous Sulfate [Iron (65 MG Elemental)] 325 mg PO DAILY Enalapril Maleate 10 mg PO DAILY Alpha Lipoic Acid 600 mg PO DAILY Discharge Medication List oxyCODONE HCL/ACETAMINOPHEN [Percocet 7.5-325 mg] 1 tab PO TID 03/24/17 [History] glipiZIDE XL [Glucotrol XL] 5 mg PO DAILY 11/06/18 [History] Atorvastatin [Lipitor] 40 mg PO DAILY 07/15/19 [History] Furosemide [Lasix] 20 mg PO DAILY 07/15/19 [History] Allopurinol [Zyloprim] 300 mg PO DAILY 01/03/22 [History] Alpha Lipoic Acid 600 mg PO DAILY 01/03/22 [History] Enalapril Maleate 10 mg PO DAILY 01/03/22 [History] Ferrous Sulfate [Iron (65 MG Elemental)] 325 mg PO DAILY 01/03/22 [History] Ketoconazole 2% Shampoo [Nizoral] 1 applic TOPICAL Q7D 01/03/22 [History] Meloxicam [Mobic] 15 mg PO DAILY 01/03/22 [History] metFORMIN HCL [Glucophage] 500 mg PO DAILY 01/03/22 [History] Bismuth Subsalicylate [Bismatrol] 524 mg PO Q1HR PRN ml 01/07/22 [Rx] HYDROcodone/APAP 5-325MG [[place] 5-325] 1 each PO Q6HR PRN #9 tab 01/07/22 [Rx] amLODIPine [Norvasc] 10 mg PO DAILY 30 Days #30 tab 01/07/22 [Rx] methylPREDNISolone Dose Pack [Medrol Dose Pack] 4 mg PO DIRECTED #21 tab 01/07/22 [Rx] Follow up Appointment(s)/Referral(s): Lilly Neves DO [Primary Care Provider] - 1-2 days Josias Cardona PAC [PHYSICIAN RETAIL SALES CLERK] - 3 Weeks (Patient may follow-up with Josias Cardona PA-C or Dr. Yamil Myoer at [facility] in 2-3 weeks following discharge. ) Andria Duarte MD [Medical Doctor] - 1 Week Ambulatory/Diagnostic Orders: Complete Blood Count w/diff [LAB.AMB] Time Frame: 3 Days, Location: None Selected Activity/Diet/Wound Care/Special Instructions: 1. Patient is encouraged to continue using a walker to aid in ambulation as needed Activity Limited until follow-up Follow-up with primary care provider on discharge Follow-up neurology outpatient in 1-2 weeks Follow-up orthopedics in the outpatient setting Continue taking medications as prescribed Discharge Disposition: HOME SELF-CARE
== END 2022-01-07 13:31 | disposition home or self-care (01) | DRG 552 ==
LOC: EC 14:19 → 5NMEDONC 18:23 → 6NMEDSUR 01-05 14:53 → OBSVTOIN 01-06 11:58
PROVIDERS: ADMIT Internal Medicine; ATTEND Internal Medicine
DX: M50.123 Cervical disc disorder at C6-C7 level with radiculopathy (principal); M79.7 Fibromyalgia; N28.9 Disorder of kidney and ureter, unspecified; Z68.39 Body mass index [BMI] 39.0-39.9, adult; M48.02 Spinal stenosis, cervical region; M47.22 Other spondylosis with radiculopathy, cervical region; M25.78 Osteophyte, vertebrae; E66.9 Obesity, unspecified; M19.90 Unspecified osteoarthritis, unspecified site; E53.8 Deficiency of other specified B group vitamins; E11.42 Type 2 diabetes mellitus with diabetic polyneuropathy; I10 Essential (primary) hypertension; G89.29 Other chronic pain; F40.240 Claustrophobia; F32.A Depression, unspecified; E78.5 Hyperlipidemia, unspecified; Z79.1 Long term (current) use of non-steroidal anti-inflammatories (NSAID); Z79.84 Long term (current) use of oral hypoglycemic drugs; Z79.891 Long term (current) use of opiate analgesic; Z79.899 Other long term (current) drug therapy; Z80.9 Family history of malignant neoplasm, unspecified; Z87.891 Personal history of nicotine dependence; Z88.8 Allergy status to other drugs, medicaments and biological substances; Z88.6 Allergy status to analgesic agent; Z88.2 Allergy status to sulfonamides
CPT/HCPCS: 36415; 70450; 71046; 72125; 72141; 80048; 80053; 81001; 82607; 82747; 83036; 83921; 84207; 84443; 84484; 85025; 85610; 85730; 86140; 93005; 96374; 96376; 99285